=== PATIENT | female | born 1965 | race Hispanic/Latino ===

== ENCOUNTER 2021-07-18 11:08 | Emergency (ER) | payer OTHER ==
[2021-07-18 11:53] LABS: Absolute Lymphocytes (CBC) 1.9 K/uL (0.7-4.9); Basophils % 0.4 % (0-1.3); Hematocrit 33.1 % (36.0-45.0); Lymphocytes % 40.9 % (15.3-44.8); MPV 7.9 fL (7.6-11.3); RBC Red Blood Cell Count 4.03 M/uL (3.86-4.86)
[2021-07-18] MEDS ORDERED: METOCLOPRAMIDE 10 MG/2mL INJ ONE (12:01)
[2021-07-18] MEDS ORDERED: KETOROLAC 30 MG/ML INJ ONE (12:01)
[2021-07-18] MEDS ORDERED: NA CHLORIDE 0.9% 1,000 ML ONE (12:01)
[2021-07-18] MEDS ORDERED: NA CHLORIDE 0.9% 50 ML ONE (12:02)
[2021-07-18 12:05] LABS: Protime INR 1.08
[2021-07-18 12:22] LABS: ALT/SGPT 24 U/L (12-78); AST/SGOT 15 U/L (15-37); Albumin 3.2 g/dL (3.4-5.0); Alkaline Phosphatase 106 U/L (45-117); BUN Blood Urea Nitrogen 10 mg/dL (7-18); Bicarbonate 28 mmol/L (21-32); Bilirubin Direct < 0.1 mg/dL (0-0.2); Bilirubin Total 0.3 mg/dL (0.2-1.0); Glucose Level 155 mg/dL (74-106); Magnesium 1.8 mg/dL (1.8-2.4); NT PRO-BNP 720 pg/mL (<125); Potassium 3.8 mmol/L (3.5-5.1); Protein, Total 7.3 g/dL (6.4-8.2); Sodium Level 144 mmol/L (136-145); Troponin (Emerg Dept Use Only) < 0.02 ng/mL (0.0-0.045)
--- NOTE | 2021-07-18 12:37 | RAD REPORT ---
EXAM DESCRIPTION: CT - Head Brain Wo Cont - 07/18/2021 12:15 pm CLINICAL HISTORY: HEADACHE Hypertension, headache COMPARISON: CTFACIAL BONES W MPR dated 03/30/2015 TECHNIQUE: All CT scans are performed using dose optimization technique as appropriate and may inclu de automated exposure control or mA/KV adjustment according to patient size. FINDINGS: No intracranial hemorrhage, hydrocephalus or extra-axial fluid collection.No areas of brai n edema or evidence of midline shift. The paranasal sinuses and mastoids are clear. The calvarium is intact. IMPRESSION: No acute intracranial abnormality.
[2021-07-18 12:48] LABS: Blood Morphology Comment NOT SEEN (NOT SEEN); Platelet Estimate ADEQ
--- NOTE | 2021-07-18 13:00 | RAD REPORT ---
EXAM DESCRIPTION: RAD - Chest Single View - 07/18/2021 12:42 pm CLINICAL HISTORY: MALAISE Chest pain. COMPARISON: CHEST PA AND LAT 2 VIEW dated 03/26/2010; ABDOMEN ACUTE SERIES dated 01/29/2004 FINDINGS: Portable technique limits examination quality. Mild bilateral interstitial lung opacities are present likely representing a viral infection or bronc hitis. The heart is normal in size. No displaced fractures.
[2021-07-18 13:12] LABS: Urine Blood Negative (Negative); Urine Glucose Negative (Negative); Urine Protein Negative (Negative)
--- NOTE | 2021-07-18 13:36 | EDPHYS ---
Physician Documentation [facility] Name: Linda Shrestha Age: 55 yrs Sex: Female : 1965 Arrival Date: 07/18/2021 Time: 11:10 Bed 7 Private MD: ED Physician Deniz Leslie HPI: 07/18 11:32 This 55 yrs old Female presents to ER via Ambulatory with complaints of Blood ma2 Pressue Issue, Dizziness. 11:32 The patient presents with mild headache. Onset: The symptoms/episode began/occurred ma2 gradually, 1 day(s) ago. Associated signs and symptoms: Pertinent negatives: blurred vision, confusion, focal weakness, head injury, numbness, palpitations, syncope. Severity of symptoms: At their worst the symptoms were moderate in the emergency department the symptoms are unchanged. The patient has experienced similar episodes in the past. Historical: - Allergies: 11:21 No Known Drug Allergies; ll1 - PMHx: 11:21 Hypertension; ll1 - Immunization history:: Client reports having NOT received the Covid vaccine. Flu vaccine status is unknown. - Social history:: Smoking status: Patient denies any tobacco usage or history of. - Family history:: not pertinent. ROS: 11:32 Constitutional: Negative for fever, chills, and weight loss. ma2 11:32 All other systems are negative. Exam: 11:32 Constitutional: This is a well developed, well nourished patient who is awake, alert, ma2 and in no acute distress. Head/Face: Normocephalic, atraumatic. Eyes: Pupils equal round and reactive to light, extra-ocular motions intact. Lids and lashes normal. Conjunctiva and sclera are non-icteric and not injected. Cornea within normal limits. Periorbital areas with no swelling, redness, or edema. ENT: Nares patent. No nasal discharge, no septal abnormalities noted. Tympanic membranes are normal and external auditory canals are clear. Oropharynx with no redness, swelling, or masses, exudates, or evidence of obstruction, uvula midline. Mucous membranes moist. Neck: Trachea midline, no thyromegaly or masses palpated, and no cervical lymphadenopathy. Supple, full range of motion without nuchal rigidity, or vertebral point tenderness. No Meningismus. Chest/axilla: Normal chest wall appearance and motion. Nontender with no deformity. No lesions are appreciated. Cardiovascular: Regular rate and rhythm with a normal S1 and S2. No gallops, murmurs, or rubs. Normal PMI, no JVD. No pulse deficits. Respiratory: Lungs have equal breath sounds bilaterally, clear to auscultation and percussion. No rales, rhonchi or wheezes noted. No increased work of breathing, no retractions or nasal flaring. Abdomen/GI: Soft, non-tender, with normal bowel sounds. No distension or tympany. No guarding or rebound. No evidence of tenderness throughout. Back: No spinal tenderness. No costovertebral tenderness. Full range of motion. MS/ Extremity: Pulses equal, no cyanosis. Neurovascular intact. Full, normal range of motion. Neuro: Awake and alert, GCS 15, oriented to person, place, time, and situation. Cranial nerves II-XII grossly intact. Motor strength 5/5 in all extremities. Sensory grossly intact. Cerebellar exam normal. Normal gait. Vital Signs: 11:21 BP 149 / 91; Pulse 96; Resp 16; Temp 98.3; Pulse Ox 97% on R/A; Weight 65.77 kg; Height ll1 4 ft. 11 in. (149.86 cm); Pain 10/10; 13:15 BP 123 / 60; Pulse 84; Resp 16; Pulse Ox 100% ; sv 11:21 Body Mass Index 29.29 (65.77 kg, 149.86 cm) ll1 MDM: 11:20 Patient medically screened. ma2 11:32 Differential diagnosis: generalized weakness, hyperventilation, hypovolemia, idiopathic ma2 dizziness, near-syncope, vertigo. 13:35 Data reviewed: vital signs, nurses notes. Counseling: I had a detailed discussion with ma2 the patient and/or guardian regarding: the historical points, exam findings, and any diagnostic results supporting the discharge/admit diagnosis, the presence of at least one elevated blood pressure reading (>120/80) during this emergency department visit, the need for outpatient follow up. Response to treatment: the patient's symptoms have markedly improved after treatment. 07/18 11:31 Order name: Basic Metabolic Panel; Complete Time: 12:24 [facility] 07/18 11:31 Order name: CBC with Diff; Complete Time: 13:03 [facility] 07/18 11:31 Order name: LFT's; Complete Time: 12:24 [facility] 07/18 11:31 Order name: Magnesium; Complete Time: 12:24 [facility] 07/18 11:31 Order name: NT PRO-BNP; Complete Time: 12:24 [facility] 07/18 11:31 Order name: PT-INR; Complete Time: 12:24 [facility] 07/18 11:31 Order name: CT Head Brain wo Cont; Complete Time: 13:03 [facility] 07/18 11:31 Order name: Troponin (emerg Dept Use Only); Complete Time: 12:24 [facility] 07/18 11:31 Order name: XRAY Chest (1 view); Complete Time: 13:03 [facility] 07/18 12:47 Order name: Manual Differential; Complete Time: 13:03 [facility] 07/18 12:59 Order name: SARS-COV-2 RT PCR; Complete Time: 13:03 [facility] 07/18 13:12 Order name: Urine Dipstick-Ancillary [facility] 07/18 11:31 Order name: EKG; Complete Time: 11:32 [facility] 07/18 11:31 Order name: Cardiac monitoring; Complete Time: 11:48 [facility] 07/18 11:31 Order name: EKG - Nurse/Tech; Complete Time: 11:48 [facility] 07/18 11:31 Order name: IV Saline Lock; Complete Time: 11:48 [facility] 07/18 11:31 Order name: Labs collected and sent; Complete Time: 11:48 [facility] 07/18 11:31 Order name: O2 Per Protocol; Complete Time: 11:49 [facility] 07/18 11:31 Order name: O2 Sat Monitoring; Complete Time: 11:49 [facility] 07/18 11:31 Order name: Urine Dipstick-Ancillary (obtain specimen); Complete Time: 13:13 ma Administered Medications: 11:48 Drug: NS 0.9% 1000 ml Route: IV; Rate: 1 bolus; Site: right forearm; sv 13:13 Follow up: Response: No adverse reaction; IV Status: Completed infusion; IV Intake: sv 1000ml 11:48 Drug: Reglan (metoCLOPramide) 20 mg Route: IVP; Site: right forearm; sv 12:30 Follow up: Response: No adverse reaction sv 11:48 Drug: Ketorolac 30 mg Route: IVP; Site: right forearm; sv 12:30 Follow up: Response: No adverse reaction sv 14:01 Drug: AZITHromycin 500 mg Route: PO; sv 14:01 Follow up: Response: Medication administered at discharge. sv Disposition Summary: 07/18/21 13:35 Discharge Ordered Location: Home ma2 Condition: Stable ma2 Diagnosis - Episodic tension-type headache ma2 - Acute bronchitis, unspecified ma2 Followup: ma2 - With: Private Physician - When: Tomorrow - Reason: Continuance of care Discharge Instructions: - Discharge Summary Sheet ma2 - Acute Bronchitis, Adult ma2 Forms: - Medication Reconciliation Form ma2 - Thank You Letter ma2 - Antibiotic Education ma2 - Prescription Opioid Use ma2 Prescriptions: - Reglan 10 mg Oral Tablet - take 1 tablet by ORAL route every 6 hours . take 30 minutes before meals and at ma2 bedtime; 100 tablet; Refills: 0, Product Selection Permitted - Zithromax Z-Mikael 250 mg Oral Tablet - take 1 tablet by ORAL route as directed for 5 days Day 1 - take two (2) tablets ma2 one time. Day 2, 3, 4 , 5 take one (1) tablet once daily.; 6 tablet; Refills: 0, Product Selection Permitted Signatures: Dispatcher [employer] Staci Henderson RN Deniz Renteria MD MD ma2 Taras Lawson RN RN ll1 Corrections: (The following items were deleted from the chart) 12:05 11:32 CORONAVIRUS+MRNII.BRZ ordered. EDMS EDMS
--- NOTE | 2021-07-18 13:36 | ER ---
Nurse's Notes [facility] Name: Linda Shrestha Age: 55 yrs Sex: Female : 1965 Arrival Date: 07/18/2021 Time: 11:10 Bed 7 Private MD: Diagnosis: Episodic tension-type headache;Acute bronchitis, unspecified Presentation: 07/18 11:21 Chief complaint: Patient states: BP has been elevated the past 4 days. Awoke today with ll1 bad GUTIÉRREZ. Coronavirus screen: Vaccine status: Patient reports being unvaccinated. Client denies travel out of the [place] in the last 14 days. At this time, the client does not indicate any symptoms associated with coronavirus-19. Ebola Screen: Patient denies travel to an Ebola-affected area in the 21 days before illness onset. Initial Sepsis Screen: Does the patient meet any 2 criteria? HR > 90 bpm. No. Patient's initial sepsis screen is negative. Does the patient have a suspected source of infection? No. Patient's initial sepsis screen is negative. Risk Assessment: Do you want to hurt yourself or someone else? Patient reports no desire to harm self or others. Onset of symptoms was July 14, 2021. 11:21 Method Of Arrival: Ambulatory ll1 11:21 Acuity: CRYSTAL 3 ll1 Historical: - Allergies: 11:21 No Known Drug Allergies; ll1 - PMHx: 11:21 Hypertension; ll1 - Immunization history:: Client reports having NOT received the Covid vaccine. Flu vaccine status is unknown. - Social history:: Smoking status: Patient denies any tobacco usage or history of. - Family history:: not pertinent. Screenin:40 Abuse screen: Denies threats or abuse. Denies injuries from another. Nutritional sv screening: No deficits noted. Tuberculosis screening: No symptoms or risk factors identified. Fall Risk None identified. Assessment: 11:40 General: Appears in no apparent distress. comfortable, well groomed, well developed, sv Behavior is calm, cooperative, appropriate for age. Pain: Complains of pain in face and scalp Pain currently is 10 out of 10 on a pain scale. Neuro: Level of Consciousness is awake, alert, obeys commands, Oriented to person, place, time, situation, Moves all extremities. Full function Gait is steady, Speech is normal, Facial symmetry appears normal, Reports headache. Neuro: Reports dizziness, only when getting up to a standing position. Cardiovascular: Patient's skin is warm and dry. Rhythm is sinus rhythm. Respiratory: Airway is patent Respiratory effort is even, unlabored, Respiratory pattern is regular, symmetrical. Derm: Skin is pink, warm \T\ dry. Musculoskeletal: Range of motion: intact in all extremities. 13:15 Reassessment: Patient appears in no apparent distress at this time. No changes from sv previously documented assessment. Patient and/or family updated on plan of care and expected duration. Pain level reassessed. Patient is alert, oriented x 3, equal unlabored respirations, skin warm/dry/pink. 14:01 Reassessment: Patient appears in no apparent distress at this time. Patient and/or sv family updated on plan of care and expected duration. Pain level reassessed. Patient is alert, oriented x 3, equal unlabored respirations, skin warm/dry/pink. Patient states symptoms have improved. Vital Signs: 11:21 BP 149 / 91; Pulse 96; Resp 16; Temp 98.3; Pulse Ox 97% on R/A; Weight 65.77 kg; Height ll1 4 ft. 11 in. (149.86 cm); Pain 10/10; 13:15 BP 123 / 60; Pulse 84; Resp 16; Pulse Ox 100% ; sv 11:21 Body Mass Index 29.29 (65.77 kg, 149.86 cm) ll1 ED Course: 11:10 Patient arrived in ED. ds1 11:20 Deniz Leslie MD is Attending Physician. ma2 11:21 Arm band placed on Patient placed in an exam room, on a stretcher. ll1 11:23 Triage completed. ll1 11:26 Staci Wagoner RN is Primary Nurse. sv 11:40 Patient has correct armband on for positive identification. Bed in low position. Call sv light in reach. slab inspector on. Pulse ox on. NIBP on. Door closed. Head of bed elevated. 11:40 Inserted saline lock: 20 gauge in right antecubital area, using aseptic technique. sv ,using aseptic technique. done by Selvin HARTMANN Blood collected. 11:44 EKG done, by ED staff, reviewed by Deniz Leslie MD. sv 12:15 CT Head Brain wo Cont In Process Unspecified. EDMS 12:42 XRAY Chest (1 view) In Process Unspecified. EDMS 14:01 No provider procedures requiring assistance completed. IV discontinued, intact, sv bleeding controlled, No redness/swelling at site. Pressure dressing applied. Administered Medications: 11:48 Drug: NS 0.9% 1000 ml Route: IV; Rate: 1 bolus; Site: right forearm; sv 13:13 Follow up: Response: No adverse reaction; IV Status: Completed infusion; IV Intake: sv 1000ml 11:48 Drug: Reglan (metoCLOPramide) 20 mg Route: IVP; Site: right forearm; sv 12:30 Follow up: Response: No adverse reaction sv 11:48 Drug: Ketorolac 30 mg Route: IVP; Site: right forearm; sv 12:30 Follow up: Response: No adverse reaction sv 14:01 Drug: AZITHromycin 500 mg Route: PO; sv 14:01 Follow up: Response: Medication administered at discharge. sv Intake: 13:13 IV: 1000ml; Total: 1000ml. sv Outcome: 13:35 Discharge ordered by MD. pratt 14:02 Discharged to home ambulatory. sv 14:02 Condition: stable 14:02 Discharge instructions given to patient, Instructed on discharge instructions, follow up and referral plans. medication usage, Demonstrated understanding of instructions, follow-up care, medications, Prescriptions given X 2. 14:02 Patient left the ED. sv Signatures: Dispatcher [employer] Staci Henderson, RN RN Anabelle Hicks ds1 Deniz Leslie MD MD ma2 Lewis, Lynsay, RN RN ll1
[2021-07-18] MEDS ORDERED: AZITHROMYCIN 250 MG TAB ONE (14:03)
[2021-07-18 14:23] VITALS: TEMP 98.3
[2021-07-18 14:24] VITALS: BP 123/60; O2SAT 100
== END 2021-07-18 14:02 | disposition home or self-care (01) ==
LOC: ER 11:08
DX: G44.209 Tension-type headache, unspecified, not intractable (principal); J20.9 Acute bronchitis, unspecified; Z20.822 Contact with and (suspected) exposure to COVID-19
CPT/HCPCS: 96361; 93005; 85025; 80048; 36415; 83735; 85610; 80076; 81003; 84484; 83880; 70450; 71045; 96375; 96374; 99285; U0003; J2765; J7030

== ENCOUNTER 2021-07-26 17:49 | Emergency (ER) | payer OTHER ==
--- NOTE | 2021-07-26 18:42 | RAD REPORT ---
EXAM DESCRIPTION: CT - Head Brain Wo Cont - 07/26/2021 6:31 pm CLINICAL HISTORY: DIZZINESS COMPARISON: <Comparisons> TECHNIQUE: All CT scans are performed using dose optimization technique as appropriate and may inclu de automated exposure control or mA/KV adjustment according to patient size. FINDINGS: No intracranial hemorrhage, hydrocephalus or extra-axial fluid collection.No areas of brai n edema or evidence of midline shift. The paranasal sinuses and mastoids are clear. The calvarium is intact. IMPRESSION: No acute intracranial abnormality.
[2021-07-26 19:07] LABS: Absolute Lymphocytes (CBC) 2.5 K/uL (0.7-4.9); Basophils % 0.4 % (0-1.3); Hematocrit 32.5 % (36.0-45.0); Lymphocytes % 41.7 % (15.3-44.8); RBC Red Blood Cell Count 3.98 M/uL (3.86-4.86)
[2021-07-26 19:22] LABS: Protime INR 1.09
--- NOTE | 2021-07-26 19:26 | RAD REPORT ---
EXAM DESCRIPTION: RAD - Chest Single View - 07/26/2021 6:30 pm CLINICAL HISTORY: dizziness COMPARISON: Chest Single View dated 07/18/2021; CHEST PA AND LAT 2 VIEW dated 03/26/2010; ABDOMEN ACUTE SERIES dated 01/29/2004 FINDINGS: Lines: None. Lungs: No evidence of edema or pneumonia. Pleural: No significant pleural effusions or pneumothorax. Cardiac: The heart size is within normal limits. Bones: No acute fractures. Other: IMPRESSION: No acute cardiopulmonary disease.
[2021-07-26] MEDS ORDERED: ONDANSETRON 4 MG/2 ML VIAL ONE (19:35)
[2021-07-26] MEDS ORDERED: LORazepam 2 MG/ML VIAL ONE (19:35)
[2021-07-26] MEDS ORDERED: NA CHLORIDE 0.9% 1,000 ML ONE (19:35)
[2021-07-26 19:36] LABS: ALT/SGPT 27 U/L (12-78); AST/SGOT 15 U/L (15-37); Albumin 3.3 g/dL (3.4-5.0); Alkaline Phosphatase 102 U/L (45-117); BUN Blood Urea Nitrogen 15 mg/dL (7-18); Bicarbonate 28 mmol/L (21-32); Bilirubin Direct < 0.1 mg/dL (0-0.2); Bilirubin Total 0.2 mg/dL (0.2-1.0); Creatine Phosphokinase 46 U/L (26-192); Glucose Level 114 mg/dL (74-106); NT PRO-BNP 266 pg/mL (<125); Potassium 3.5 mmol/L (3.5-5.1); Sodium Level 142 mmol/L (136-145); Troponin (Emerg Dept Use Only) < 0.02 ng/mL (0.0-0.045)
[2021-07-26 20:49] LABS: Urine Blood Negative (Negative); Urine Glucose Negative (Negative); Urine Protein Negative (Negative); Urine Specific Gravity 1.025 (1.005-1.030); Urine pH 6.5 (5.0-7.0)
[2021-07-26 21:58] LABS: Barbiturates NEGATIVE (NEGATIVE); Benzodiazepines NEGATIVE (NEGATIVE); Cocaine NEGATIVE (NEGATIVE); METHAMPHETAM NEGATIVE (NEGATIVE); Methadone NEGATIVE (NEGATIVE); Opiates NEGATIVE (NEGATIVE); Phencyclidine NEGATIVE (NEGATIVE); THC Cannibis NEGATIVE (NEGATIVE)
--- NOTE | 2021-07-26 22:13 | ER ---
Nurse's Notes [facility] Name: Linda Shrestha Age: 55 yrs Sex: Female : 1965 Arrival Date: 07/26/2021 Time: 17:59 Bed 15 Private MD: Diagnosis: Anxiety disorder, unspecified Presentation: 07/26 18:15 Chief complaint: Patient states: Reports episode of anxiety while washing her car. aj2 Reports hot flash prior to feeling anxiety.. Coronavirus screen: Vaccine status: Patient reports being unvaccinated. Ebola Screen: No symptoms or risks identified at this time. Initial Sepsis Screen: Does the patient meet any 2 criteria?. Risk Assessment: Do you want to hurt yourself or someone else?. Onset of symptoms was July 26, 2021. 18:15 Method Of Arrival: EMS: [facility] aj2 18:15 Acuity: CRYSTAL 2 aj2 22:41 Initial Sepsis Screen: Does the patient have a suspected source of infection? No. lh3 Patient's initial sepsis screen is negative. Triage Assessment: 18:18 General: Appears in no apparent distress. comfortable, Behavior is calm, cooperative. aj2 Pain: Denies pain. HIGH CLIMBER: 22:41 LMP N/A - Irregular menses lh3 Historical: - PMHx: 18:18 Hypertension; aj2 - Immunization history:: Adult Immunizations not up to date. - Social history:: Smoking status: unknown. Screenin:49 Abuse screen: Denies threats or abuse. Denies injuries from another. Nutritional aj2 screening: No deficits noted. Tuberculosis screening: No symptoms or risk factors identified. Fall Risk None identified. Assessment: 18:49 Reassessment: Patient appears in no apparent distress at this time. Patient and/or aj2 family updated on plan of care and expected duration. Pain level reassessed. Patient is alert, oriented x 3, equal unlabored respirations, skin warm/dry/pink. Vital Signs: 18:46 BP 126 / 68; Pulse 87; Resp 18; Temp 96.8; Pulse Ox 100% ; aj2 ED Course: 17:59 Patient arrived in ED. em1 18:04 Sami Hurt PA is PHCP. cp 18:09 Sami Shafer MD is Attending Physician. cornelio 18:15 Jn Neves is Primary Nurse. aj2 18:18 Triage completed. aj2 18:18 Arm band placed on right wrist. aj2 18:30 XRAY Chest (1 view) In Process Unspecified. EDMS 18:31 CT Head Brain wo Cont In Process Unspecified. EDMS 18:49 No apparent distress. Resting quietly. aj2 18:49 Patient has correct armband on for positive identification. aj2 18:49 No provider procedures requiring assistance completed. IV is patent, is intact. aj2 18:59 CBC with Diff Sent. aj2 18:59 LFT's Sent. aj2 18:59 Magnesium Sent. aj2 18:59 NT PRO-BNP Sent. aj2 18:59 PT-INR Sent. aj2 18:59 Troponin (emerg Dept Use Only) Sent. aj2 19:00 Basic Metabolic Panel Sent. aj2 22:41 IV discontinued, bleeding controlled, No redness/swelling at site. Pressure dressing lh3 applied. Administered Medications: 19:00 Drug: NS 0.9% 1000 ml Route: IV; Rate: 1 bolus; Site: left antecubital; aj2 19:16 Drug: Ativan (LORazepam) 0.5 mg Route: IVP; Site: left antecubital; aj2 20:05 Follow up: Response: No adverse reaction lh3 19:16 Drug: Zofran (Ondansetron) 4 mg Route: IVP; Site: left antecubital; aj2 20:05 Follow up: Response: No adverse reaction lh3 21:10 Follow up: Response: No adverse reaction 3 Outcome: 22:13 Discharge ordered by . daniella 22:41 Discharged to home ambulatory. 3 22:41 Condition: good 22:41 Discharge instructions given to patient, Instructed on discharge instructions, medication usage, Demonstrated understanding of instructions, Prescriptions given X 1. 22:42 Patient left the ED. 3 Signatures: Dispatcher [employer] EDMS Sami Shafer MD MD cha Martinez, Eric em1 Sami Hurt PA PA cp Hardee, Latisha, RN RN 3 Jn Neves aj2
--- NOTE | 2021-07-26 22:13 | EDPHYS ---
Physician Documentation [facility] Name: Linda Shrestha Age: 55 yrs Sex: Female : 1965 Arrival Date: 07/26/2021 Time: 17:59 Bed 15 Private MD: ED Physician Sami Shafer HPI: 07/26 18:20 This 55 yrs old Female presents to ER via EMS with complaints of Anxiety. cp 18:20 The patient presents with lightheadedness. Onset: The symptoms/episode began/occurred cp today. 18:20 Associated signs and symptoms: Pertinent positives: general weakness, Pertinent cp negatives: abdominal pain, chest pain, focal weakness, near-syncope, numbness, syncope. Patient's baseline: Neuro: alert and fully oriented, Motor: no deficits, Ambulation: walks without assistance, Speech: normal. Patient reports she was outside washing her car at local carwash when she started becoming lightheaded, weak all over. Patient reports history of anxiety. 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 - Social history:: Smoking status: unknown. ROS: 18:25 Constitutional: Negative for body aches, chills, fever, poor PO intake. cp 18:25 Eyes: Negative for injury, pain, redness, and discharge. cp 18:25 ENT: Negative for ear pain, sore throat, difficulty swallowing, difficulty handling secretions. 18:25 Cardiovascular: Negative for chest pain, edema, palpitations. 18:25 Respiratory: Negative for cough, shortness of breath, wheezing. 18:25 Abdomen/GI: Negative for abdominal pain, vomiting, diarrhea, constipation. 18:25 Neuro: Positive for dizziness, weakness all over, Negative for altered mental status, headache, loss of consciousness, numbness, syncope. 18:25 Psych: Positive for anxiety. 18:25 All other systems are negative. Exam: 18:30 Constitutional: The patient appears in no acute distress, alert, awake, cp non-diaphoretic, non-toxic, well developed, well nourished, anxious. 18:30 Head/Face: Normocephalic, atraumatic. cp 18:30 Eyes: Periorbital structures: appear normal, Pupils: equal, round, and reactive to light and accomodation, Extraocular movements: intact throughout, Conjunctiva: normal, no exudate, no injection, Sclera: no appreciated abnormality, Lids and lashes: appear normal, bilaterally. 18:30 ENT: External ear(s): are unremarkable, Ear canal(s): are normal, clear, TM's: dullness, bilaterally, Nose: is normal, Mouth: Lips: moist, Oral mucosa: pink and intact, moist, Posterior pharynx: Airway: no evidence of obstruction, patent. 18:30 Neck: ROM/movement: is normal, is supple, without pain, no range of motions limitations, no nuchal rigidity. 18:30 Chest/axilla: Inspection: normal, Palpation: is normal, no crepitus, no tenderness. 18:30 Cardiovascular: Rate: normal, Rhythm: regular, Heart sounds: murmur, not appreciated, Edema: is not appreciated, JVD: is not appreciated. 18:30 Respiratory: the patient does not display signs of respiratory distress, Respirations: normal, no use of accessory muscles, no retractions, labored breathing, is not present, Breath sounds: are clear throughout, no decreased breath sounds, no stridor, no wheezing. 18:30 Abdomen/GI: Inspection: abdomen appears normal, Palpation: abdomen is soft and non-tender, in all quadrants. 18:30 Back: pain, is absent, ROM is normal. 18:30 Neuro: Orientation: to person, place \T\ time. Mentation: is normal, Cerebellar function: is grossly normal, Motor: moves all fours, strength is normal, Sensation: is normal. 20:37 ECG was reviewed by the Attending Physician. cp Vital Signs: 18:46 BP 126 / 68; Pulse 87; Resp 18; Temp 96.8; Pulse Ox 100% ; aj2 MDM: 18:09 Patient medically screened. cornelio 18:30 Differential diagnosis: hypovolemia, TIA, dehydration, anxiety. cp 22:10 Data reviewed: vital signs, nurses notes, lab test result(s), EKG, radiologic studies, cp CT scan, plain films. 22:10 Test interpretation: by ED physician or midlevel provider: ECG, plain radiologic cp studies. 22:13 Counseling: I had a detailed discussion with the patient and/or guardian regarding: the cp historical points, exam findings, and any diagnostic results supporting the discharge/admit diagnosis, lab results, radiology results, to return to the emergency department if symptoms worsen or persist or if there are any questions or concerns that arise at home. 22:13 Response to treatment: the patient's symptoms have markedly improved after treatment, cp VSS. Patient reports symptoms markedly improved. Will discharge to home for continued monitoring. 07/26 18:11 Order name: Basic Metabolic Panel cp 07/26 18:11 Order name: CBC with Diff; Complete Time: 19:36 cp 07/26 19:36 Interpretation: Normal except: HGB 10.6; HCT 32.5; MCH 26.7; MN% 13.6. cp 07/26 18:11 Order name: LFT's; Complete Time: 19:36 cp 07/26 19:37 Interpretation: Normal except: ALB 3.3; GLOB 3.7; A/G 0.9. cp 07/26 18:11 Order name: Magnesium; Complete Time: 19:36 cp 07/26 18:11 Order name: NT PRO-BNP; Complete Time: 19:36 cp 07/26 18:11 Order name: PT-INR; Complete Time: 19:36 cp 07/26 20:09 Interpretation: Abnormal: PT 12.6. cp 07/26 18:11 Order name: Troponin (emerg Dept Use Only); Complete Time: 19:36 cp 07/26 18:11 Order name: XRAY Chest (1 view); Complete Time: 19:36 cp 07/26 18:11 Order name: CT Head Brain wo Cont; Complete Time: 18:48 cp 07/26 18:11 Order name: CK; Complete Time: 19:36 cp 07/26 18:11 Order name: UDS; Complete Time: 22:05 cp 07/26 18:12 Order name: Basic Metabolic Panel; Complete Time: 19:36 EDMS 07/26 19:37 Interpretation: Normal except: CL 108; GLUC 114; CRE 0.38. cp 07/26 20:49 Order name: Urine Dipstick-Ancillary; Complete Time: 22:05 EDMS 07/26 18:11 Order name: EKG; Complete Time: 18:13 cp 07/26 18:11 Order name: Cardiac monitoring; Complete Time: 19:00 cp 07/26 18:11 Order name: EKG - Nurse/Tech; Complete Time: 20:46 cp 07/26 18:11 Order name: IV Saline Lock; Complete Time: 18:59 cp 07/26 18:11 Order name: Labs collected and sent; Complete Time: 18:59 cp 07/26 18:11 Order name: O2 Per Protocol; Complete Time: 18:59 cp 07/26 18:11 Order name: O2 Sat Monitoring; Complete Time: 18:59 cp 07/26 18:11 Order name: Urine Dipstick-Ancillary (obtain specimen); Complete Time: 21:10 cp 07/26 18:11 Order name: Urine Test (obtain specimen); Complete Time: 21:11 cp EC:37 Rate is 87 beats/min. Rhythm is regular. KS interval is normal. QRS interval is normal. cp QT interval is normal. T waves are Inverted in lead aVR. Interpreted by me. Reviewed by me. Administered Medications: 19:00 Drug: NS 0.9% 1000 ml Route: IV; Rate: 1 bolus; Site: left antecubital; aj2 19:16 Drug: Ativan (LORazepam) 0.5 mg Route: IVP; Site: left antecubital; aj2 20:05 Follow up: Response: No adverse reaction lh3 19:16 Drug: Zofran (Ondansetron) 4 mg Route: IVP; Site: left antecubital; aj2 20:05 Follow up: Response: No adverse reaction lh3 21:10 Follow up: Response: No adverse reaction lh3 Disposition: 07/27 06:41 Co-signature as Attending Physician, Sami Shafer MD I agree with the assessment and cornelio plan of care. Disposition Summary: 07/26/21 22:13 Discharge Ordered Location: Home cp Problem: an acute exacerbation cp Symptoms: have improved cp Condition: Stable cp Diagnosis - Anxiety disorder, unspecified cp Followup: cp - With: Private Physician - When: 1 - 2 days - Reason: Recheck today's complaints Discharge Instructions: - Discharge Summary Sheet cp - Generalized Anxiety Disorder, Adult cp - Form - Return To Work lh3 Forms: - Medication Reconciliation Form cp - Thank You Letter cp - Antibiotic Education cp - Prescription Opioid Use cp Prescriptions: - Vistaril 50 mg Oral capsule - take 1 capsule by ORAL route 4 times per day; 20 capsule; Refills: 0, Product cp Selection Permitted Signatures: Dispatcher [employer] Sami Singh MD MD cha Page, Corey, PA PA cp Hardee, Latisha, RN RN 3 Jn [facility]
[2021-07-26 22:51] VITALS: BP 126/68; TEMP 96.8; O2SAT 100
== END 2021-07-26 22:42 | disposition home or self-care (01) ==
LOC: ER 17:49
DX: F41.9 Anxiety disorder, unspecified (principal)
CPT/HCPCS: 93005; 85025; 80048; 36415; 83735; 82550; 85610; 80076; 81003; 84484; 83880; 80307; 70450; 71045; 96375; 96374; 99284; J7030; J2405

== ENCOUNTER 2021-09-30 19:54 | Emergency (ER) | payer OTHER ==
--- OUTSIDE RECORDS SUMMARY | 2021-09-30 19:57 | XMS REPORT | Continuity of Care Document ---
:1965 Author Organization [facility] t Address [facility] [place] [address] Care Team Providers Name Role Phone Pcp, Patient Does Not Have A Primary Care Physician [id number] Wanda HARTMANN, L Attending Clinician Unavailable REYNA K.H. Attending Clinician Unavailable Reyna RAHMAN, K.H. Attending Clinician UNKNOWN Attending Clinician Unavailable Payers Payer Name Policy Type Policy Number Effective Date Expiration Date S ource Problems Condition Condition Condition Status Onset Resolution Last Treating Co mments Source Name Details Category Date Date Treatment Clinician Date No known No known Disease Unive rs active active ity of problems problems [facility] Allergies, Adverse Reactions, Alerts Allergy Allergy Status Severity Reaction(s) Onset Inactive Treating Comm ents Source Name Type Date Date Clinician NO KNOWN Drug Active [facility] ALLERGIE Class ity of S [facility] Social History Social Habit Start Date Stop Date Quantity Comments Source Exposure to Not sure [facility] SARS-CoV-2 (event) Medica [facility] Branch Tobacco use and 2021-07-17 2021-07-17 Never used [facility] exposure 00:00:00 00:00:00 [facility] Sex Ass[birth year] At [birth year] [facility] 00:00:00 00:00:00 [facility] Smoking Status Start Date Stop Date Source Never smoker [facility] Medications Ordered Filled Start Stop Current Ordering Indication Dosage Frequency Signature Comments Components Source Medication Medication Date Date Medication? Clinician (SIG) Name Name lisinopriL Yes 10mg Take 10 mg U nivers 10 mg 9-23 by mouth ity of tablet 00:00: daily. [facility] lisinopriL 2020-0 Yes 10mg Take 10 mg U nivers 10 mg 9-23 by mouth ity of tablet 00:00: daily. [place] [facility] lisinopriL 2020-0 Yes 10mg Take 10 mg U nivers 10 mg 9-23 by mouth ity of tablet 00:00: daily. [facility] atomoxetine 2020-0 Yes 40mg Take 40 mg Univers 40 mg 7-06 by mouth ity of capsule 00:00: daily. [facility] escitalopra 2020-0 Yes 10mg Take 10 mg Univers m oxalate 7-06 by mouth 2 ity of 10 mg 00:00: (two) [place] tablet 00 times Medical daily. Branch atomoxetine 2020-0 Yes 40mg Take 40 mg Univers 40 mg 7-06 by mouth ity of capsule 00:00: daily. [place] [facility] escitalopra 2020-0 Yes 10mg Take 10 mg Univers m oxalate 7-06 by mouth 2 ity of 10 mg 00:00: (two) [place] tablet 00 times Medical daily. Branch atomoxetine 2020-0 Yes 40mg Take 40 mg Univers 40 mg 7-06 by mouth ity of capsule 00:00: daily. [place] [facility] escitalopra 2020-0 Yes 10mg Take 10 mg Univers m oxalate 7-06 by mouth 2 ity of 10 mg 00:00: (two) [place] tablet 00 times Medical daily. Branch albuterol 2020- No [id number] 2{puff} Inhale 2 Univers 90 1-03 09-24 Puffs ity of mcg/actuati 00:00: 00:00 every 6 [place] inhaler 00 :00 (six) Medical hours as Branch needed for Wheezing or Shortness of Breath. albuterol 2020- No [id number] 2{puff} Inhale 2 Univers 90 1-03 09-24 Puffs ity of mcg/actuati 00:00: 00:00 [place] 6 [place] inhaler 00 :00 (six) Medical hours as Branch needed for Wheezing or Shortness of Breath. Vital Signs Vital Name Observation Time Observation Value Comments Source Systolic blood 2021-07-17 20:00:00 134 mm[Hg] [facility] Diastolic blood 2021-07-17 20:00:00 73 mm[facility]Hg[facility] Heart rate 2021-07-17 19:58:00 90 /min [facility] Body weight 2021-07-17 19:58:00 67.132 kg [facility] BMI 2021-07-17 19:58:00 29.89 kg/m2 [facility] Oxygen saturation 2021-07-17 19:58:00 97 /min [facility] in Arterial blood [facility] anch by Pulse oximetry Procedures This patient has no known procedures. Encounters Start End Encounter Admission Attending Care Care Encounter Source Date/Time Date/Time Type Type Clinicians Facility Department ID 2021-09-04 2021-09-04 Telephone Wanda GOLDMAN [id number] Univers 00:00:00 00:00:00 , Hedy CLARK [id number] [id number] [id number] [facility] [address] 2021-08-13 2021-08-13 [facility] [id number] Univers 08:30:00 08:30:00 SENDIL [id number] [facility] 2021-08-13 2021-08-13 Outpatient [facility] [id number] Univers 00:00:00 00:00:00 SENDIL [facility] 2021-08-11 2021-08-11 Outpatient R [facility] [id number] Univers 14:15:00 14:15:00 [id number]-07-17 2021-07-17 [facility] [id number] Univers 14:49:01 15:18:26 Visit Priya Arambula [id number] [id number] [id number] [place] [id number] [facility] 2021-07-17 2021-07-17 Outpatient [facility] [id number] Univers 15:00:00 15:00:00 SENDIL [id number] [facility] 2021-07-17 2021-07-17 Outpatient R REYNA [facility] [id number] [facility] 15:00:00 15:00:00 SENDIL [facility] 2020-10-26 2020-10-26 Outpatient R ANGELINE [facility] [id number] Univers 12:15:00 12:15:00 ATTENDING [facility] Results This patient has no known results.
[2021-09-30 20:29] LABS: Urine Blood Negative (Negative); Urine Glucose Negative (Negative); Urine Protein Negative (Negative); Urine Specific Gravity 1.025 (1.005-1.030); Urine pH 6.5 (5.0-7.0)
[2021-09-30 21:06] LABS: Urine Specific Gravity/Preg 1.025 (1.005-1.030)
--- NOTE | 2021-09-30 23:23 | ER ---
Nurse's Notes [facility] Name: Linda Shrestha Age: 55 yrs Sex: Female : 1965 Arrival Date: 09/30/2021 Time: 19:57 Bed Waiting Private MD: Diagnosis: Presentation: 09/30 20:01 Chief complaint: Patient states: left flank and left side x 1 day. Coronavirus screen: da3 Vaccine status: Patient reports being unvaccinated. Ebola Screen: No symptoms or risks identified at this time. Initial Sepsis Screen: Does the patient meet any 2 criteria? No. Patient's initial sepsis screen is negative. Risk Assessment: Do you want to hurt yourself or someone else? Patient reports no desire to harm self or others. Onset of symptoms was September 30, 2021. 20:01 Method Of Arrival: Ambulatory da3 20:01 Acuity: CRYSTAL 3 da3 Triage Assessment: 20:05 General: Appears uncomfortable, Behavior is calm, cooperative, anxious. 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 - Social history:: Smoking status: Patient/guardian denies using tobacco. Vital Signs: 20:01 BP 155 / 99; Pulse 104; Resp 22; Temp 98.4; Pulse Ox 98% ; Weight 60.33 kg; Height 4 da3 ft. 11 in. (149.86 cm); 20:01 Body Mass Index 26.86 (60.33 kg, 149.86 cm) da3 ED Course: 19:57 Patient arrived in ED. da3 20:04 Triage completed. da3 23:17 Orlando Durand MD is Attending Physician. rn 23:22 Patient's name was called from ER lobby. No response. Unable to locate patient. Will bb disposition as left without being seen by a provider. Administered Medications: No medications were administered Outcome: 23:22 Patient left the ED. bb Signatures: Kathi Malhotra RN RN bb Orlando Durand MD MD rn Allan, David, RN RN da3 Corrections: (The following items were deleted from the chart) 20:05 20:04 PMHx: Hypertension; da3 da3
--- NOTE | 2021-09-30 23:23 | EDPHYS ---
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 - Social history:: Smoking status: Patient/guardian denies using tobacco. Vital Signs: 20:01 BP 155 / 99; Pulse 104; Resp 22; Temp 98.4; Pulse Ox 98% ; Weight 60.33 kg; Height 4 da3 ft. 11 in. (149.86 cm); 20:01 Body Mass Index 26.86 (60.33 kg, 149.86 cm) da3 MDM: 23:17 Patient medically screened. rn 23:20 ED course: Pt left prior to evaluation, after triage. rn 09/30 20:29 Order name: Urine Dipstick-Ancillary; Complete Time: 23:17 EDMS 09/30 20:45 Order name: Urine --Ancillary (enter results) cs9 09/30 20:22 Order name: Urine Dipstick-Ancillary (obtain specimen) bb 09/30 20:46 Order name: Urine --Ancillary; Complete Time: 23:17 EDMS Administered Medications: No medications were administered Disposition Summary: 09/30/21 23:22 Eloped Disposition: before being seen by provider bb Reason: wait time bb Signatures: Dispatcher [employer] EDMS Kathi Malhotra RN RN bb Orlando Durand MD MD rn Allan, David, RN RN da3 Corrections: (The following items were deleted from the chart) 20:05 20:04 PMHx: Hypertension; da3 da3
[2021-09-30 23:39] VITALS: BP 155/99; TEMP 98.4; O2SAT 98
== END 2021-09-30 23:22 | disposition left against medical advice (07) ==
LOC: ER 19:54
DX: Z53.21 Procedure and treatment not carried out due to patient leaving prior to being seen by health care provider (principal)
CPT/HCPCS: 81003; 81025; 99281

== ENCOUNTER 2023-05-29 18:45 | Emergency (ER) | payer OTHER ==
--- OUTSIDE RECORDS SUMMARY | 2023-05-29 18:57 | XMS REPORT | Continuity of Care Document ---
:1965 Author Organization [facility] t Address [address] [place] [address] Care Team Providers Name Role Phone Manas Hawkins [facility] Primary Care P hysician PRIYA ORELLANA Attending Clinician Unavailable Priya Orellana MD Attending Clinician Doctor Unassigned, [place] Attending Clinician Unavailable Saba Mora DO Attending Clinician SABA MORA Attending Clinician Unavailable SABA MORA Attending Clinician Unavailable 2, [facility] Attending Clinician Unavailable AR DIEGO Attending Clinician Unavailable AR DIEGO Attending Clinician Unavailable [facility], [facility] Attending Clinician Unavailable Ar Diego MD Attending Clinician RADHA SIEGEL Attending Clinician Unavailable Radha Siegel MD Attending Clinician Testing, [facility] Pulmonary Function Attending Clinician Unavaila ble Only, Adc Test Attending Clinician Unavailable Marita Birmingham MD Attending Clinician MARITA BIRMINGHAM Attending Clinician Unavailable NILTON GRACIA Attending Clinician Unavailable Nilton Gracia MD Attending Clinician KUMAR VALENCIA Attending Clinician Unavailable Kumar Valencia MD Attending Clinician Juan Francisco CNP, Kasey Quiroga Attending Clinician [phone] KASEY JARQUIN Attending Clinician Unavailable CHANDA FINK Attending Clinician Unavailable Danae ENGLISH LECTURER, Chanda Rona Attending Clinician RIC VILLATORO Attending Clinician Unavailable CHANCE BENITEZ Attending Clinician Unavailable Tariq ENGLISH LECTURER, Janellye R Attending Clinician Lab, [facility] Attending Clinician Unavailable Addison ENGLISH LECTURER, Roshunda R Attending Clinician GUY ADDISON R Attending Clinician Unavailable CHAD PEREZ Attending Clinician Unavailable Chad Perez DO Attending Clinician Danna LINING MAKER HAND, Kenisha Alex Attending Clinician Unavailable Wanda RN, Hedy Houston Attending Clinician Unavailable Omaghomi ENGLISH LECTURER, Omayemi Attending Clinician Unknown, Attending Attending Clinician Unavailable UNKNOWN, ATTENDING Attending Clinician Unavailable RADHA SIEGEL Admitting Clinician Unavailable Robbin RAHMAN, Radha Leger Admitting Clinician KUMAR VALENCIA Admitting Clinician Unavailable NILTON GRACIA Admitting Clinician Unavailable CHANCE BENITEZ Admitting Clinician Unavailable CHAD PEREZ Admitting Clinician Unavailable Payers Payer Name Policy Type Policy Number Effective Date Expiration Date [facility] [id number] 2020 CHOICE [place] STAR 00:00:00 Problems Condition Condition Condition Status Onset Resolution Last Treating Co mments Source Name Details Category Date Date Treatment Clinician Date Pulmonary Pulmonary Disease Active 2021-10 Overview: Univers hypertensi hypertensi 1-30 Formattin ity of on on 00:00: g of this [place] 00 note Medical might be Branch different from the original. Added automatic ally from request for surgery [id number] BAXTER BAXTER Disease Active 2021-10 Overview: Univer s (dyspnea (dyspnea 1-30 Formattin ity of on on 00:00: g of this [place] exertion) exertion) 00 note Medi juan c might be Branch different from the original. Added automatic ally from request for surgery [id number] Diastolic Diastolic Disease Active 2021-10 Overview: Univers dysfunctio dysfunctio 1-30 Formattin ity of n n 00:00: g of this [place] 00 note Medical might be Branch different from the original. 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 2-28 ity of 00:00: [place] 00 Medical Branch Other Other Disease Active Univers general general 1-13 ity of counseling [place] and advice and advice 00 Dc dical for for Branch contracept contracept chrystal chrystal management management Essential Essential Disease Active Uni vers hypertensi hypertensi 1-13 it y of on, benign [place], benign 00:[place] 00 [place] Over Over Disease Active Univers weight weight 1-13 ity of 00:00: [address] Allergies, Adverse Reactions, Alerts Allergy Allergy Status Severity Reaction(s) Onset Inactive Treating Comm ents Source Name Type Date Date Clinician NO KNOWN Drug Active Univers ALLERGIE Class ity of S [facility] Social History Social Habit Start Date Stop Date Quantity Comments Source Gender identity Universit y of [facility] to 2023-02-18 2023-02-28 Not sure [facility] SARS-CoV-2 (event) 00:00:00 13:08:00 [facility] Alcohol intake 2022-11-16 2022-11-16 Ex-drinker [facility] 00:00:00 00:00:00 (finding) [facility] History of Social 2022-08-13 2022-08-13 Univers ity of function 00:00:00 00:00:00 [facility] Tobacco use and 2022-07-22 2022-07-22 Smokeless Universit y of exposure 00:00:00 00:00:00 tobacco [facility] Sex Assigned At [birth year] Universit y of 00:00:00 00:00:00 [facility] Smoking Status Start Date Stop Date Source Never smoked tobacco [facility] [place] [facility] Medications Ordered Filled Start Stop Current Ordering Indication Dosage Frequency Signature Comments Components Source Medication Medication Date Date Medication? Clinician (SIG) Name Name SPIRONOLACT 2023-0 Yes TAKE HALF U nivers ONE 25 mg 8-03 TABLET BY ity o f tablet 00:00: MOUTH [place] [id number] EVERY Medical MORNING Branch SPIRONOLACT 2023-0 Yes TAKE HALF U nivers ONE 25 mg 8-03 TABLET BY ity o f tablet 00:00: MOUTH [place] EVERY Medical MORNING Branch spironolact 2023-0 Yes 12.5mg Take 0.5 Univers one 25 mg 4-12 tablets by ity of tablet 00:00: mouth in [place] the Medical morning. Branch spironolact 2023-0 Yes 12.5mg Take 0.5 Univers one 25 mg 4-12 tablets by ity of tablet 00:00: mouth in [place] the Medical morning. Branch spironolact 2023-0 Yes 12.5mg Take 0.5 Univers one 25 mg 4-12 tablets by ity of tablet 00:00: mouth in [place] the Medical morning. Branch spironolact 2023-0 Yes 12.5mg Take 0.5 Univers one 25 mg 4-12 tablets by ity of tablet 00:00: mouth in [place] the Medical morning. Branch spironolact 2023-0 Yes 12.5mg Take 0.5 Univers one 25 mg 4-12 tablets by ity of tablet 00:00: mouth in [place] the Medical morning. Branch spironolact 2023-0 Yes 12.5mg Take 0.5 Univers one 25 mg 4-12 tablets by ity of tablet 00:00: mouth in [place] the Medical morning. Branch spironolact 2023-0 Yes 12.5mg Take 0.5 Univers one 25 mg 4-12 tablets by ity of tablet 00:00: mouth in [place] the Medical morning. Branch spironolact 2023-0 Yes 12.5mg Take 0.5 Univers one 25 mg 4-12 tablets by ity of tablet 00:00: mouth in [place] the Medical morning. Branch spironolact 2023-0 Yes 12.5mg Take 0.5 Univers one 25 mg 4-12 tablets by ity of tablet 00:00: mouth in [place] 00 the Medical morning. Branch spironolact 2023-0 Yes 12.5mg Take 0.5 Univers one 25 mg 4-12 tablets by ity of tablet 00:00: mouth in [place] 00 the Medical morning. Branch spironolact 2022-0 Yes 12.5mg Take 0.5 Univers one 25 mg 4-12 tablets by ity of tablet 00:00: mouth in [place] 00 the Medical morning. Branch spironolact 2022-0 2022- No 12.5mg Take 0.5 Univers one 25 mg 4-12 08-03 tablets by ity of tablet 00:00: 00:00 mouth in [place] 00 :00 the Medical morning. Branch spironolact 2022-0 2022- No 12.5mg Take 0.5 Univers one 25 mg 4-12 08-03 tablets by ity of tablet 00:00: 00:00 mouth in [place] 00 :00 the Medical morning. Branch spironolact 2022-0 2022- No [id number] 12.5mg Take 0.5 Univers one -12 23- tablets by ity of (ALDACTONE) 00:00: 05:59 mouth in [place] 25 mg 00 :00 the Medical tablet morning Branch for 30 days. spironolact 2022-0 2022- No [id number] 12.5mg Take 0.5 Univers one -12 23- tablets by ity of (ALDACTONE) 00:00: 05:59 mouth in [place] 25 mg 00 :00 the Medical tablet morning Branch for 30 days. spironolact 2022-0 2022- No [id number] 12.5mg Take 0.5 Univers one 10-26- tablets by ity of (ALDACTONE) 00:00: 05:59 mouth in [place] 25 mg 00 :00 the Medical tablet morning Branch for 30 days. spironolact 2022-0 2022- No [id number] 12.5mg Take 0.5 Univers one - 02-03 tablets by ity of (ALDACTONE) 00:00: 05:59 mouth in [place] 25 mg 00 :00 the Medical tablet morning Branch for 30 days. spironolact 2022-0 2022- No [id number] 12.5mg Take 0.5 Univers one - 02-03 tablets by ity of (ALDACTONE) 00:00: 05:59 mouth in [place] 25 mg 00 :00 the Medical tablet morning Branch for 30 days. spironolact 0 2022- No [id number] 12.5mg Take 0.5 Univers one 10-26 tablets by ity of (ALDACTONE) 00:00: 05:59 mouth in [place] 25 mg 00 :00 the Medical tablet morning Branch for 30 days. spironolact 2022-0 2022- No [id number] 12.5mg Take 0.5 Univers one 10-26 tablets by ity of (ALDACTONE) 00:00: 05:59 mouth in [place] 25 mg 00 :00 the Medical tablet morning Branch for 30 days. spironolact 2022-0 2022- No [id number] 12.5mg Take 0.5 Univers one 10-26 tablets by ity of (ALDACTONE) 00:00: 05:59 mouth in [place] 25 mg 00 :00 the Medical tablet morning Branch for 30 days. spironolact 2022-0 2022- No [id number] 12.5mg Take 0.5 Univers one 10-26 tablets by ity of (ALDACTONE) 00:00: 05:59 mouth in [place] 25 mg 00 :00 the Medical tablet morning Branch for 30 days. spironolact 2022-0 2022- No [id number] 12.5mg Take 0.5 Univers one 10-26 tablets by ity of (ALDACTONE) 00:00: 05:59 mouth in [place] 25 mg 00 :00 the Medical tablet morning Branch for 30 days. TAKE 1 2021-10 No TABLET 2-15 DAILY. 00:00: 00 IBUPROFEN 2021-1 No 600MG 2-15 00:00: 00 Dose 2021-10 No Unknown 2-15 00:00: 00 CYCLOBENZAP 2021-10 No R 5MG 2-15 00:00: 00 Dose 2021- No Unknown 2-15 00:00: 00 Dose 2021-10 No Unknown 2-15 00:00: 00 Dose 2021- No Unknown 2-15 00:00: 00 Dose 2021-10 No Unknown 2-15 00:00: 00 Dose 2021-10 No Unknown 2-15 00:00: 00 CYCLOBENZAP 2021-10 No R 5MG 2-15 00:00: 00 Dose 2021-10 No Unknown 2-15 00:00: 00 Dose 2021-10 No Unknown 2-15 00:00: 00 APPLY 2021-10 No SPARINGLY 2-14 TO AFFECTED 00:00: AREA(S) 00 TWICE DAILY INSTILL 1 2021-10 No DROP IN 2-14 LEFT EYE 4 00:00: TIMES A DAY 00 Dose 2021-10 No Unknown 2-14 00:00: 00 Dose 2021-10 No Unknown 2-14 00:00: 00 ESCITALOPRA 2021-10 No M 20MG 2-14 00:00: 00 Dose 2021-10 No Unknown 2-14 00:00: 00 Dose 2021-10 No Unknown 2-14 00:00: 00 ESCITALOPRA 2021-10 No M 10MG 2-14 00:00: 00 Dose 2021-10 No Unknown 2-14 00:00: 00 Dose 2021-10 No Unknown 2-14 00:00: 00 Dose 2021-10 No Unknown 2-14 00:00: 00 Dose 2021-10 No Unknown 2-14 00:00: 00 ATOMOXETINE 2021-10 No CAP 40MG 2-14 00:00: 00 BPM-PSE-DM 2021-10 No SYP 2-30-10 2-14 00:00: 00 AZITHROMYCI 2021-10 No N 250MG 2-14 00:00: 00 APPLY 2021-10 No SPARINGLY 2-14 TO AFFECTED 00:00: AREA(S) 00 TWICE DAILY TAKE 1 2021-10 No TABLET 2-14 DAILY. 00:00: 00 INSTILL 1 2021-10 No DROP IN 2-14 LEFT EYE 4 00:00: TIMES A DAY 00 CIPROFLOXAC 2021-10 No N 500MG 2-14 00:00: 00 ESCITALOPRA 2021-10 No M 20MG 2-14 00:00: 00 METOCLOPRAM 2021-10 No 10MG 2-14 00:00: 00 HYDROCO/APA 2021-10 No P 10-325MG 2-14 00:00: 00 ESCITALOPRA 2021-10 No M 10MG 2-14 00:00: 00 ONDANSETRON 2021-10 No 4MG ODT 2-14 00:00: 00 DICYCLOMINE 2021-10 No CAP 10MG 2-14 00:00: 00 Dose 2021-10 No Unknown 2-14 00:00: 00 Dose 2021-10 No Unknown 2-14 00:00: 00 Dose 2021-10 No Unknown 2-14 00:00: 00 Dose 2021-10 No Unknown 2-14 00:00: 00 Dose 2021-10 No Unknown 2-14 00:00: 00 iopamidol 2021-10- No ONCE INTRA U nivers (ISOVUE 12-05 PROCEDURE, ity o f 370-500 mL) 14:24: 14:27 [place] injection 06 :30 on [facility] 10/04/22 Branch at 0824, Until [facility] 10/04/22 at 0827, Routine, CV Intraproce dure aspirin 2021-10- No [id number] 325mg 325 mg, Un laure tablet 325 12-05 Oral, ity of mg 14:15: 13:25 ONCE, 1 [place] 00 :00 dose, On [facility] 10/04/22 at 0815, STAT aspirin 2021-10- No [id number] 325mg 325 mg, Un laure tablet 325 12-05 Oral, ity of mg 14:15: 13:25 ONCE, 1 [place] 00 :00 dose, On [facility] 10/04/22 at 0815, STAT heparin 2021-10- No ONCE INTRA Uni vers 1,000 12-05 PROCEDURE, ity of unit/mL 14:01: 14:27 Starting [place] injection 20 :30 on [facility] 10/04/22 Branch at 0801, Until [facility] 10/04/22 at 0827, Routine, CV Intraproce dure verapamiL 2021-10- No ONCE INTRA U nivers (ISOPTIN) 12-05 PROCEDURE, ity of injection 14:01: 14:27 Starting [place] 10 :30 on [facility] 10/04/22 Branch at 0801, Until [facility] 10/04/22 at 0827, Routine, CV Intraproce dure nitroglycer 2021-10- No ONCE INTRA Univers in (TRIDIL) 12-05 PROCEDURE, i ty of 2 mg in 10 14:01: 14:27 [place] D5W for 00 :30 on [facility] Cardiac 10/04/22 Branch Cath at 0801, Until [facility] 10/04/22 at 0827, Routine, CV Intraproce dure lidocaine 2021-10- No ONCE INTRA U nivers 1% (PF) 12-05 PROCEDURE, ity o f (XYLOCAINE) 13:52: 14:27 Starting [place] injection 25 :30 on [facility] 10/04/22 Branch at 0752, Until [facility] 10/04/22 at 0827, Routine, CV Intraproce dure FENTanyl PF 2021-10- No ONCE INTRA Univers (SUBLIMAZE 12-05 PROCEDURE, it y of (PF)) 13:45: 14:27 Starting [place] injection 46 :30 on [facility] 10/04/22 Branch at 0745, Until [facility] 10/04/22 at 0827, Routine, CV Intraproce dure midazolam 2021-10- No ONCE INTRA U nivers (VERSED) 12-05 PROCEDURE, ity of injection 13:45: 14:27 Starting [place] 37 :30 on [facility] 10/04/22 Branch at 0745, Until [facility] 10/04/22 at 0827, Routine, CV Intraproce dure Dose 2021-0 No Unknown 9-12 00:00: 00 Dose 2021-0 No Unknown 9-12 00:00: 00 Dose 2021-0 No Unknown 8-09 00:00: 00 Dose 2021-0 No Unknown 8-09 00:00: 00 Dose 2-0 No Unknown 7-14 00:00: 00 Dose 2-0 No Unknown 7-14 00:00: 00 Dose 2-0 No Unknown 7-14 00:00: 00 Dose 2-0 No Unknown 7-14 00:00: 00 Dose 2-0 No Unknown 7-14 00:00: 00 Dose 2-0 No Unknown 7-14 00:00: 00 Dose 2-0 No Unknown 7-14 00:00: 00 Dose 2-0 No Unknown 7-14 00:00: 00 Lexapro 20 2021-0 No 1mg mg tablet 7-11 00:00: 00 mirtazapine 2021-0 No 1mg 15 mg 7-11 tablet 00:00: 00 Dose 2-0 No Unknown 7-11 00:00: 00 Lexapro 20 2021-0 No 1mg mg tablet 05-03 00:00: 00 mirtazapine 2021-0 No 1mg 15 mg 05-03 tablet 00:00: 00 Dose 2021-0 No Unknown 7 00:00: 00 Dose 2021-0 No Unknown 7 00:00: 00 Dose 2021-0 No Unknown 7- 00:00: 00 Dose 2021-0 No Unknown 7- 00:00: 00 Dose 2021-0 No Unknown 7- 00:00: 00 Dose 2021-0 No Unknown 7- 00:00: 00 Dose 2021-0 No Unknown -11 00:00: 00 regadenoson 2021-0 2021- No [id number] .4mg 0.4 mg, IV Univers (LEXISCAN) 04-20 Push, ity of injection 15:15: 15:01 ONCE, 1 [place] 0.4 mg 00 :00 dose, On [facility] 04/20/22 at 1015, Routine
hull line crew member approving Restricted medication : KIMMY HECK tc 2021- No [id number] 42.9mCi 42.9 Unive rs 99m-tetrofo 04-20 millicurie i ty of [facility] 15:15: 15:01 , [place] ([facility]) 00 :00 Intravenou Medi juan c injection s, ONCE, 1 Bran ch 42.9 dose, On [facility] 04/20/22 at 1015, Routine tc 2021- No [id number] 15.2mCi 15.2 Univ ers 99m-tetrofo 04-20 millicurie i ty of [facility] 14:15: 14:02 , [place] ([facility]) 00 :00 Intravenou Medi juan c injection s, ONCE, 1 Bran ch 15.2 dose, On [facility] 04/20/22 at 0915, Routine Lexapro 20 2021-0 No 1mg mg tablet 04-09 00:00: 00 mirtazapine 2-0 No 1mg 15 mg -17 tablet 00:00: 00 Lexapro 20 2021-0 No 1mg mg tablet 6-17 00:00: 00 mirtazapine 2022-0 No 1mg 15 mg 6-17 tablet 00:00: 00 Lexapro 20 2022-0 No 1mg mg tablet 6-17 00:00: 00 mirtazapine 2022-0 No 1mg 15 mg 6-17 tablet 00:00: 00 Lexapro 20 2022-0 No 1mg mg tablet 6-17 00:00: 00 mirtazapine 2022-0 No 1mg 15 mg 6-17 tablet 00:00: 00 Lexapro 20 2022-0 No 1mg mg tablet 5- 00:00: 00 mirtazapine 2022-0 No 1mg 15 mg 5-03 tablet 00:00: 00 Lexapro 20 2022-0 No 1mg mg tablet 5- 00:00: 00 mirtazapine 2022-0 No 1mg 15 mg 5-03 tablet 00:00: 00 Lexapro 20 2022-0 No 1mg mg tablet 5- 00:00: 00 mirtazapine 2022-0 No 1mg 15 mg 5-03 tablet 00:00: 00 Lexapro 20 2022-0 No 1mg mg tablet 02-23 00:00: 00 mirtazapine 2022-0 No 1mg 15 mg 5-03 tablet 00:00: 00 morpHINE 2021-0 2021- No 4mg 4 mg, Slow Un laure injection 4 02-10-20 IV Push, ity of mg 08:15: 07:05 ONCE, 1 [place] 00 :00 dose, On Medical Wed Branch 02/10/22 at 0315, STAT morpHINE 0 2021- No 4mg 4 mg, Slow Un laure injection 4 02-10-20 IV Push, ity of mg 08:00: 07:05 ONCE, 1 [place] 00 :00 dose, On Medical Wed Branch 02/10/22 at 0300, STAT ketorolac 2021-0 2021- No 30mg 30 mg, Unive rs (TORADOL) 02-10 04-20 Slow IV ity of injection 07:00: 06:04 Push, [place] 30 mg 00 :00 ONCE, 1 Medical dose, On Branch 02/10/22 at 0200, Routine
hull line crew member approving Restricted medication : LYDIA MCGARRY NaCl 0.9% 2022-0 Yes 1000mL at 999 Univ ers (NS) IV 4-20 mL/hr, ity of infusion 05:30: Intravenou [place]w [place] 1,000 mL 00 s, Medical CONTINUOUS Branch , Starting on Tue02/10/22 at 0030, Until Discontinu ed, Routine ondansetron 2021- No 4mg 4 mg, Slow Univers (ZOFRAN 4-20 04-20 IV Push, ity of (PF)) 05:30: 05:11 ONCE, 1 [place] injection 4 00 :00 dose, On Medi juan c mg Tue Branch 02/10/22 at 0030, JEAN CLAUDE morpHINE 0 2021- No 4mg 4 mg, Slow Un laure injection 4 4-20 04-20 IV Push, ity of mg 05:30: 05:11 ONCE, 1 [place] 00 :00 dose, On Medical Tue Branch 02/10/22 at 0030, STAT HYDROcodone 2021-0 Yes [id number] 1{tbl} Take 1 Un luare -acetaminop 4-20 tablet by ity of hen (NORCO) 00:00: mouth [place] 10-325 mg 00 every 6 Medical tablet (six) Branch hours as needed for Pain (scale 7-10). Indication s: acute pain HYDROcodone 2021-0 Yes [id number] 1{tbl} Take 1 Un laure -acetaminop 4-20 tablet by ity of hen (NORCO) 00:00: mouth [place] 10-325 mg 00 every 6 Medical tablet (six) Branch hours as needed for Pain (scale 7-10). Indication s: acute pain HYDROcodone 2021-0 Yes 4647 1{tbl} Take 1 Un laure -acetaminop 4-20 tablet by ity of hen (NORCO) 00:00: mouth [place] 10-325 mg 00 every 6 Medical tablet (six) Branch hours as needed for Pain (scale 7-10). Indication s: acute pain HYDROcodone 2021-0 Yes 4647 1{tbl} Take 1 Un laure -acetaminop 4-20 tablet by ity of hen (NORCO) 00:00: mouth [place] 10-325 mg 00 every 6 Medical tablet (six) Branch hours as needed for Pain (scale 7-10). Indication s: acute pain HYDROcodone 2021-0 Yes 4647 1{tbl} Take 1 Un laure -acetaminop 4-20 tablet by ity of hen (NORCO) 00:00: mouth [place] 10-325 mg 00 every 6 Medical tablet (six) Branch hours as needed for Pain (scale 7-10). Indication s: acute pain HYDROcodone 2022-0 Yes 4647 1{tbl} Take 1 Un laure -acetaminop 4-20 tablet by ity of hen (NORCO) 00:00: mouth [place] 10-325 mg 00 every 6 Medical tablet (six) Branch hours as needed for Pain (scale 7-10). Indication s: acute pain HYDROcodone 2022-0 Yes 4647 1{tbl} Take 1 Un laure -acetaminop 4-20 tablet by ity of hen (NORCO) 00:00: mouth [place] 10-325 mg 00 every 6 Medical tablet (six) Branch hours as needed for Pain (scale 7-10). Indication s: acute pain HYDROcodone 2022-0 Yes 4647 1{tbl} Take 1 Un laure -acetaminop 4-20 tablet by ity of hen (NORCO) 00:00: mouth [place] 10-325 mg 00 every 6 Medical tablet (six) Branch hours as needed for Pain (scale 7-10). Indication s: acute pain HYDROcodone 2022-0 Yes 4647 1{tbl} Take 1 Un laure -acetaminop 4-20 tablet by ity of hen (NORCO) 00:00: mouth [place] 10-325 mg 00 every 6 Medical tablet (six) Branch hours as needed for Pain (scale 7-10). Indication s: acute pain HYDROcodone 2022-0 Yes 4647 1{tbl} Take 1 Un laure -acetaminop 4-20 tablet by ity of hen (NORCO) 00:00: mouth [place] 10-325 mg 00 every 6 Medical tablet (six) Branch hours as needed for Pain (scale 7-10). Indication s: acute pain HYDROcodone 2022-0 Yes 4647 1{tbl} Take 1 Un laure -acetaminop 4-20 tablet by ity of hen (NORCO) 00:00: mouth [place] 10-325 mg 00 every 6 Medical tablet (six) Branch hours as needed for Pain (scale 7-10). Indication s: acute pain HYDROcodone 2022-0 Yes 4647 1{tbl} Take 1 Un laure -acetaminop 4-20 tablet by ity of hen (NORCO) 00:00: mouth [place] 10-325 mg 00 every 6 Medical tablet (six) Branch hours as needed for Pain (scale 7-10). Indication s: acute pain HYDROcodone 2022-0 Yes 4647 1{tbl} Take 1 Un laure -acetaminop 4-20 tablet by ity of hen (NORCO) 00:00: mouth [place] 10-325 mg 00 every 6 Medical tablet (six) Branch hours as needed for Pain (scale 7-10). Indication s: acute pain HYDROcodone 2022-0 Yes 4647 1{tbl} Take 1 Un laure -acetaminop 4-20 tablet by ity of hen (NORCO) 00:00: mouth [place] 10-325 mg 00 every 6 Medical tablet (six) Branch hours as needed for Pain (scale 7-10). Indication s: acute pain HYDROcodone 2022-0 Yes 4647 1{tbl} Take 1 Un laure -acetaminop 4-20 tablet by ity of hen (NORCO) 00:00: mouth [place] 10-325 mg 00 every 6 Medical tablet (six) Branch hours as needed for Pain (scale 7-10). Indication s: acute pain HYDROcodone 2-0 Yes 4647 1{tbl} Take 1 Un laure -acetaminop 4-20 tablet by ity of hen (NORCO) 00:00: mouth [place] 10-325 mg 00 every 6 Medical tablet (six) Branch hours as needed for Pain (scale 7-10). Indication s: acute pain HYDROcodone 2022-0 Yes 4647 1{tbl} Take 1 Un laure -acetaminop 4-20 tablet by ity of hen (NORCO) 00:00: mouth [place] 10-325 mg 00 every 6 Medical tablet (six) Branch hours as needed for Pain (scale 7-10). Indication s: acute pain HYDROcodone 2022-0 Yes 4647 1{tbl} Take 1 Un laure -acetaminop 4-20 tablet by ity of hen (NORCO) 00:00: mouth [place] 10-325 mg 00 every 6 Medical tablet (six) Branch hours as needed for Pain (scale 7-10). Indication s: acute pain HYDROcodone 2022-0 Yes 4647 1{tbl} Take 1 Un laure -acetaminop 4-20 tablet by ity of hen (iDoc24) 00:00: mouth [place] 10-325 mg 00 every 6 Medical tablet (six) Branch hours as needed for Pain (scale 7-10). Indication s: acute pain HYDROcodone 2021-0 Yes 4647 1{tbl} Take 1 Un laure -acetaminop 4-20 tablet by ity of hen (iDoc24) 00:00: mouth [place] 10-325 mg 00 every 6 Medical tablet (six) Branch hours as needed for Pain (scale 7-10). Indication s: acute pain HYDROcodone 2021- Yes 4647 1{tbl} Take 1 Un laure -acetaminop 4-20 tablet by ity of hen (iDoc24) 00:00: mouth [place] 10-325 mg 00 every 6 Medical tablet (six) Branch hours as needed for Pain (scale 7-10). Indication s: acute pain HYDROcodone 2021- No 4647 1{tbl} Take 1 U nivers -acetaminop 4-20 12-12 tablet by it y of hen (iDoc24) 00:00: 00:00 [place] 10-325 mg 00 :00 every 6 Medical tablet (six) Branch hours as needed for Pain (scale 7-10). Indication s: acute pain HYDROcodone 2021- No 4647 1{tbl} Take 1 U nivers -acetaminop 4-20 12-12 tablet by it y of hen (iDoc24) 00:00: 00:00 mouth [place] 10-325 mg 00 :00 every 6 Medical tablet (six) Branch hours as needed for Pain (scale 7-10). Indication s: acute pain furosemide 2021- No [id number] 40mg 40 mg, Univers (LASIX) 02-03 Slow IV ity of injection 17:45: 17:40 Push, [place] 40 mg 00 :00 ONCE, 1 Medical dose, On Branch Tue02/03/22 at 1245, Routine tc 2021- No [id number] 9.8mCi 9.8 Univer s 99m-mertiat 02-03 millicurie i ty of ruiz 17:00: 17:00 , [place] (TECHNESCAN 00 :00 Intravenou Me dical MAG3) s, ONCE, 1 Branch injection dose, On 9.8 Tue [facility] 02/03/22 at 1200, Routine lisinopril No 1mg 10 mg 4-12 tablet 00:00: 00 lisinopril 0 No 1mg 10 mg 4-12 tablet 00:00: 00 Dose 2021-0 No Unknown 4-12 00:00: 00 TAKE 1 0 No TABLET 4-12 DAILY. 00:00: 00 cefTRIAXone 2021- No [id number] 1000mg Univers (ROCEPHIN) 01-25 ity of injection 14:45: 13:30 [place] 1,000 mg 00 :00 [facility] cefTRIAXone 2021- No [id number] 1000mg 1,000 mg, Univers (ROCEPHIN) 01-25 Intramuscu it y of injection 14:45: 13:30 [place], ONCE, [place] 1,000 mg 00 :00 1 dose, On Medic al Tue01/25/22 Branch at 0945, JEAN CLAUDE
Re ason for Anti-Infec tive: Surgical Prophylaxi s
Surgi juan c Prophylaxi s: Genitourin wilmar
Dur ation of therapy: within 24 hours of surgery cefTRIAXone 2021- No [id number] 1000mg [facility] (ROCEPHIN) 01-25 ity of injection 14:45: 13:30 [place] 1,000 mg 00 :00 [facility] cefTRIAXone 2021- No [id number] 1000mg 1,000 mg, [facility] (ROCEPHIN) 01-25 Intramuscu it y of injection 14:45: 13:30 [place], [place]CE, [place] 1,000 mg 00 :00 1 dose, On Medic al Tue01/25/22 Branch at 0945, JEAN CLAUDE
Re ason for Anti-Infec tive: Surgical Prophylaxi s
Surgi juan c Prophylaxi s: Genitourin wilmar
Dur ation of therapy: within 24 hours of surgery Dose 2021-0 No Unknown 3-29 00:00: 00 Dose 2021-0 No Unknown 3-29 00:00: 00 Dose 2022-0 No Unknown 3-29 00:00: 00 Dose 2022-0 No Unknown 3-29 00:00: 00 Dose 2022-0 No Unknown 3-29 00:00: 00 Dose 2022-0 No Unknown 3-29 00:00: 00 Dose 2022-0 No Unknown 3-29 00:00: 00 Dose 2022-0 No Unknown 3-29 00:00: 00 Dose 2022-0 No Unknown 3-18 00:00: 00 Dose 2022-0 No Unknown 3-18 00:00: 00 Dose 2022-0 No Unknown 3-18 00:00: 00 Dose 2022-0 No Unknown 3-18 00:00: 00 Dose 2022-0 No Unknown 3-18 00:00: 00 Dose 2022-0 No Unknown 3-18 00:00: 00 Dose 2022-0 No Unknown 3-18 00:00: 00 Dose 2022-0 No Unknown 3-18 00:00: 00 Dose 2022-0 No Unknown 3-18 00:00: 00 Dose 2022-0 No Unknown 3-18 00:00: 00 Dose 2022-0 No Unknown 3-18 00:00: 00 Dose 2022-0 No Unknown 3-18 00:00: 00 Dose 2022-0 No Unknown 3-18 00:00: 00 Dose 2022-0 No Unknown 3-18 00:00: 00 Dose 2022-0 No Unknown 3-18 00:00: 00 Dose 2022-0 No Unknown 3-18 00:00: 00 Dose 2022-0 No Unknown 3-18 00:00: 00 Dose 2022-0 No Unknown 3-18 00:00: 00 Dose 2022-0 No Unknown 3-18 00:00: 00 Dose 2022-0 No Unknown 3-18 00:00: 00 Dose 2022-0 No Unknown 3-18 00:00: 00 Dose 2022-0 No Unknown 3-18 00:00: 00 Dose 2022-0 No Unknown 3-18 00:00: 00 Dose 2022-0 No Unknown 3-18 00:00: 00 Dose 2022-0 No Unknown 3-18 00:00: 00 Dose 2022-0 No Unknown 3-18 00:00: 00 Dose 2022-0 No Unknown 3-18 00:00: 00 Dose 2022-0 No Unknown 3-18 00:00: 00 Dose 2022-0 No Unknown 3-18 00:00: 00 Dose 2022-0 No Unknown 3-18 00:00: 00 Dose 2022-0 No Unknown 3-18 00:00: 00 Dose 2022-0 No Unknown 3-18 00:00: 00 Dose 2022-0 No Unknown 3-18 00:00: 00 Dose 2022-0 No Unknown 3-18 00:00: 00 Dose 2022-0 No Unknown 3-18 00:00: 00 Dose 2022-0 No Unknown 3-18 00:00: 00 Dose 2022-0 No Unknown 3-18 00:00: 00 Dose 2022-0 No Unknown 3-18 00:00: 00 Dose 2022-0 No Unknown 3-18 00:00: 00 Dose 2022-0 No Unknown 3-18 00:00: 00 Dose 2022-0 No Unknown 3-18 00:00: 00 Dose 2022-0 No Unknown 3-18 00:00: 00 Dose 2022-0 No Unknown 3-18 00:00: 00 Dose 2022-0 No Unknown 3-18 00:00: 00 Dose 2022-0 No Unknown 3-18 00:00: 00 Dose 2022-0 No Unknown 3-18 00:00: 00 Dose 2022-0 No Unknown 3-18 00:00: 00 Dose 2022-0 No Unknown 3-18 00:00: 00 Dose 2022-0 No Unknown 3-18 00:00: 00 Dose 2022-0 No Unknown 3-18 00:00: 00 Dose 2022-0 No Unknown 3-18 00:00: 00 Dose 2022-0 No Unknown 3-18 00:00: 00 Dose 2022-0 No Unknown 3-18 00:00: 00 Dose 2022-0 No Unknown 3-18 00:00: 00 Dose 2022-0 No Unknown 3-18 00:00: 00 Dose 2022-0 No Unknown 3-18 00:00: 00 Dose 2022-0 No Unknown 3-18 00:00: 00 Dose 2022-0 No Unknown 3-18 00:00: 00 Dose 2022-0 No Unknown 3-18 00:00: 00 Dose 2022-0 No Unknown 3-18 00:00: 00 Dose 2022-0 No Unknown 3-18 00:00: 00 Dose 2022-0 No Unknown 3-18 00:00: 00 Dose 2022-0 No Unknown 3-18 00:00: 00 Dose 2022-0 No Unknown 3-18 00:00: 00 Dose 2022-0 No Unknown 3-18 00:00: 00 Dose 2022-0 No Unknown 3-18 00:00: 00 Dose 2022-0 No Unknown 3-18 00:00: 00 Dose 2022-0 No Unknown 3-18 00:00: 00 Dose 2022-0 No Unknown 3-18 00:00: 00 Dose 2022-0 No Unknown 3-18 00:00: 00 Dose 2022-0 No Unknown 3-18 00:00: 00 Dose 2022-0 No Unknown 3-18 00:00: 00 Dose 2022-0 No Unknown 3-16 00:00: 00 Dose 2022-0 No Unknown 3-16 00:00: 00 Dose 2022-0 No Unknown 3-16 00:00: 00 Dose 2022-0 No Unknown 3-16 00:00: 00 Dose 2022-0 No Unknown 3-16 00:00: 00 Dose 2022-0 No Unknown 3-16 00:00: 00 Dose 2022-0 No Unknown 3-16 00:00: 00 Dose 2022-0 No Unknown 3-16 00:00: 00 Dose 2022-0 No Unknown 3-16 00:00: 00 Dose 2022-0 No Unknown 3-16 00:00: 00 Dose 2022-0 No Unknown 3-16 00:00: 00 Dose 2022-0 No Unknown 3-16 00:00: 00 Dose 2022-0 No Unknown 3-16 00:00: 00 Dose 2022-0 No Unknown 3-16 00:00: 00 Dose 2022-0 No Unknown 3-16 00:00: 00 Dose 2022-0 No Unknown 3-16 00:00: 00 Dose 2022-0 No Unknown 3-16 00:00: 00 Dose 2022-0 No Unknown 3-16 00:00: 00 Dose 2022-0 No Unknown 3-16 00:00: 00 Dose 2022-0 No Unknown 3-16 00:00: 00 Dose 2022-0 No Unknown 3-16 00:00: 00 Dose 2022-0 No Unknown 3-16 00:00: 00 Dose 2022-0 No Unknown 3-16 00:00: 00 Dose 2022-0 No Unknown 3-16 00:00: 00 Dose 2022-0 No Unknown 3-16 00:00: 00 Dose 2022-0 No Unknown 3-16 00:00: 00 Dose 2022-0 No Unknown 3-16 00:00: 00 Dose 2022-0 No Unknown 3-16 00:00: 00 Dose 2022-0 No Unknown 3-16 00:00: 00 Dose 2022-0 No Unknown 3-16 00:00: 00 Dose 2022-0 No Unknown 3-16 00:00: 00 Dose 2022-0 No Unknown 3-16 00:00: 00 Dose 2022-0 No Unknown 3-16 00:00: 00 Dose 2022-0 No Unknown 3-16 00:00: 00 Dose 2022-0 No Unknown 3-16 00:00: 00 Dose 2022-0 No Unknown 3-16 00:00: 00 Dose 2022-0 No Unknown 3-16 00:00: 00 Dose 2022-0 No Unknown 3-16 00:00: 00 Dose 2022-0 No Unknown 3-16 00:00: 00 Dose 2022-0 No Unknown 3-16 00:00: 00 Dose 2022-0 No Unknown 3-16 00:00: 00 Dose 2022-0 No Unknown 3-16 00:00: 00 Dose 2022-0 No Unknown 3-16 00:00: 00 Dose 2022-0 No Unknown 3-16 00:00: 00 Dose 2022-0 No Unknown 3-16 00:00: 00 Dose 2022-0 No Unknown 3-16 00:00: 00 Dose 2022-0 No Unknown 3-16 00:00: 00 Dose 2022-0 No Unknown 3-16 00:00: 00 Dose 2022-0 No Unknown 3-16 00:00: 00 Dose 2022-0 No Unknown 3-16 00:00: 00 Dose 2022-0 No Unknown 3-16 00:00: 00 Dose 2022-0 No Unknown 3-16 00:00: 00 Dose 2022-0 No Unknown 3-16 00:00: 00 Dose 2022-0 No Unknown 3-16 00:00: 00 Dose 2022-0 No Unknown 3-16 00:00: 00 Dose 2022-0 No Unknown 3-16 00:00: 00 Dose 2022-0 No Unknown 3-16 00:00: 00 Dose 2022-0 No Unknown 3-16 00:00: 00 Dose 2022-0 No Unknown 3-16 00:00: 00 Dose 2022-0 No Unknown 3-16 00:00: 00 Dose 2022-0 No Unknown 3-16 00:00: 00 Dose 2022-0 No Unknown 3-16 00:00: 00 Dose 2022-0 No Unknown 3-16 00:00: 00 Dose 2022-0 No Unknown 3-16 00:00: 00 Dose 2022-0 No Unknown 3-16 00:00: 00 Dose 2022-0 No Unknown 3-16 00:00: 00 Dose 2022-0 No Unknown 3-16 00:00: 00 Dose 2022-0 No Unknown 3-16 00:00: 00 Dose 2022-0 No Unknown 3-16 00:00: 00 Dose 2022-0 No Unknown 3-16 00:00: 00 Dose 2022-0 No Unknown 3-16 00:00: 00 Dose 2022-0 No Unknown 3-16 00:00: 00 Dose 2022-0 No Unknown 3-11 00:00: 00 Dose 2022-0 No Unknown 3-11 00:00: 00 Dose 2022-0 No Unknown 3-11 00:00: 00 Dose 2022-0 No Unknown 3-11 00:00: 00 Dose 2022-0 No Unknown 3-11 00:00: 00 Dose 2022-0 No Unknown 3-11 00:00: 00 Dose 2022-0 No Unknown 3-11 00:00: 00 Dose 2022-0 No Unknown 3-11 00:00: 00 Dose 2022-0 No Unknown 3-11 00:00: 00 Dose 2022-0 No Unknown 3-11 00:00: 00 Dose 2022-0 No Unknown 3-11 00:00: 00 Dose 2022-0 No Unknown 3-11 00:00: 00 Dose 2022-0 No Unknown 3-11 00:00: 00 Dose 2022-0 No Unknown 3-11 00:00: 00 Dose 2022-0 No Unknown 3-11 00:00: 00 Dose 2022-0 No Unknown 3-11 00:00: 00 Dose 2022-0 No Unknown 3-11 00:00: 00 Dose 2022-0 No Unknown 3-11 00:00: 00 Dose 2022-0 No Unknown 3-11 00:00: 00 Dose 2022-0 No Unknown 3-11 00:00: 00 Dose 2022-0 No Unknown 3-11 00:00: 00 Dose 2022-0 No Unknown 3-11 00:00: 00 Dose 2022-0 No Unknown 3-11 00:00: 00 Dose 2022-0 No Unknown 3-11 00:00: 00 Dose 2022-0 No Unknown 2-25 00:00: 00 Dose 2022-0 No Unknown 2-25 00:00: 00 Dose 2022-0 No Unknown 2-25 00:00: 00 Dose 2022-0 No Unknown 2-25 00:00: 00 Dose 2022-0 No Unknown 2-25 00:00: 00 Dose 2022-0 No Unknown 2-25 00:00: 00 Dose 2022-0 No Unknown 2-25 00:00: 00 Dose 2022-0 No Unknown 2-25 00:00: 00 Dose 2022-0 No Unknown 2-25 00:00: 00 Dose 2022-0 No Unknown 2-25 00:00: 00 Dose 2022-0 No Unknown 2-25 00:00: 00 Dose 2022-0 No Unknown 2-25 00:00: 00 Dose 2022-0 No Unknown 2-25 00:00: 00 Dose 2022-0 No Unknown 2-25 00:00: 00 Dose 2022-0 No Unknown 2-25 00:00: 00 Dose 2022-0 No Unknown 2-25 00:00: 00 Dose 2022-0 No Unknown 2-24 00:00: 00 Dose 2022-0 No Unknown 2-24 00:00: 00 Dose 2022-0 No Unknown 2-24 00:00: 00 Dose 2022-0 No Unknown 2-24 00:00: 00 Dose 2022-0 No Unknown 2-24 00:00: 00 Dose 2022-0 No Unknown 2-24 00:00: 00 Dose 2022-0 No Unknown 2-24 00:00: 00 Dose 2022-0 No Unknown 2-24 00:00: 00 Dose 2022-0 No Unknown 2-24 00:00: 00 Dose 2022-0 No Unknown 2-24 00:00: 00 Dose 2022-0 No Unknown 2-24 00:00: 00 Dose 2022-0 No Unknown 2-24 00:00: 00 Dose 2022-0 No Unknown 2-24 00:00: 00 Dose 2022-0 No Unknown 2-24 00:00: 00 Dose 2022-0 No Unknown 2-24 00:00: 00 Dose 2022-0 No Unknown 2-24 00:00: 00 Dose 2022-0 No Unknown 2-24 00:00: 00 Dose 2022-0 No Unknown 2-24 00:00: 00 Dose 2022-0 No Unknown 2-24 00:00: 00 Dose 2022-0 No Unknown 2-24 00:00: 00 Dose 2022-0 No Unknown 2-24 00:00: 00 Dose 2022-0 No Unknown 2-24 00:00: 00 Dose 2022-0 No Unknown 2-24 00:00: 00 Dose 2022-0 No Unknown 2-24 00:00: 00 Dose 2022-0 No Unknown 2-24 00:00: 00 Dose 2022-0 No Unknown 2-24 00:00: 00 Dose 2022-0 No Unknown 2-24 00:00: 00 Dose 2022-0 No Unknown 2-24 00:00: 00 Dose 2022-0 No Unknown 2-24 00:00: 00 Dose 2022-0 No Unknown 2-24 00:00: 00 Dose 2022-0 No Unknown 2-24 00:00: 00 Dose 2022-0 No Unknown 2-24 00:00: 00 Dose 2022-0 No Unknown 2-24 00:00: 00 Dose 2022-0 No Unknown 2-24 00:00: 00 Dose 2022-0 No Unknown 2-24 00:00: 00 Dose 2022-0 No Unknown 2-24 00:00: 00 Dose 2022-0 No Unknown 2-24 00:00: 00 Dose 2022-0 No Unknown 2-24 00:00: 00 Dose 2022-0 No Unknown 2-24 00:00: 00 Dose 2022-0 No Unknown 2-24 00:00: 00 Dose 2022-0 No Unknown 2-23 00:00: 00 Dose 2022-0 No Unknown 2-23 00:00: 00 Dose 2022-0 No Unknown 2-23 00:00: 00 Dose 2022-0 No Unknown 2-23 00:00: 00 Dose 2-0 No Unknown 2-23 00:00: 00 Dose 2-0 No Unknown 2-23 00:00: 00 Dose 2-0 No Unknown 2-23 00:00: 00 Dose 2-0 No Unknown 2-23 00:00: 00 Dose 2-0 No Unknown 2-23 00:00: 00 Dose 2-0 No Unknown 2-23 00:00: 00 Dose 2-0 No Unknown 2-23 00:00: 00 Dose 2-0 No Unknown 2-23 00:00: 00 Dose 2021-0 No Unknown 2-23 00:00: 00 Dose 2021-0 No Unknown 2-23 00:00: 00 Dose 2021-0 No Unknown 2-23 00:00: 00 Dose 2021-0 No Unknown 2-23 00:00: 00 Dose 2021-0 No Unknown 2-23 00:00: 00 Dose 2-0 No Unknown 2-23 00:00: 00 Dose 2021-0 No Unknown 2-23 00:00: 00 Dose 2021-0 No Unknown 2-23 00:00: 00 Dose 2021-0 No Unknown 2-22 00:00: 00 Dose 2021-0 No Unknown 2-22 00:00: 00 Dose 2021-0 No Unknown 2-22 00:00: 00 Dose 2021-0 No Unknown 2-22 00:00: 00 Dose 2021-0 No Unknown 2-22 00:00: 00 Dose 2-0 No Unknown 2-22 00:00: 00 Dose 2-0 No Unknown 2-22 00:00: 00 Dose 2021-0 No Unknown 2-22 00:00: 00 Saccharomyc 2021-0 Yes [id number] 250mg Take 1 [facility] es 1-20 capsule by ity of perla 00:00: mouth 2 [place] (FLORASTOR) 00 (two) Medical 250 mg times Branch capsule daily. ondansetron Yes [id number] 4mg Take 1 [facility] (ZOFRAN 1-20 tablet by ity of ODT) 4 mg 00:00: mouth [place] disintegrat 00 every 8 Medic al ing tablet (eight) Branch hours as needed for Nausea and Vomiting (N/V). dicyclomine 2022-0 Yes [id number] 10mg Take 1 [facility] 10 mg 1-20 capsule by ity of capsule 00:00: mouth 4 [place] 00 (four) Medical times Branch daily as needed for Abdominal pain. Saccharomyc 2-0 Yes [id number] 250mg Take 1 [facility] es 1-20 capsule by ity of boulardii 00:00: mouth 2 [place] (FLORASTOR) 00 (two) Medical 250 mg times Branch capsule daily. ondansetron 2-0 Yes [id number] 4mg Take 1 [facility] (ZOFRAN 1-20 tablet by ity of ODT) 4 mg 00:00: mouth [place] disintegrat 00 every 8 Medic al ing tablet (eight) Branch hours as needed for Nausea and Vomiting (N/V). dicyclomine 2-0 Yes [id number] 10mg Take 1 [facility] 10 mg 1-20 capsule by ity of capsule 00:00: mouth 4 [place] 00 (four) Medical times Branch daily as needed for Abdominal pain. Saccharomyc 2021-0 Yes [id number] 250mg Take 1 [facility] es 1-20 capsule by ity of boulardii 00:00: mouth 2 [place] (FLORASTOR) 00 (two) Medical 250 mg times Branch capsule daily. ondansetron 2-0 Yes [id number] 4mg Take 1 [facility] (ZOFRAN 1-20 tablet by ity of ODT) 4 mg 00:00: mouth [place] disintegrat 00 every 8 Medic al ing tablet (eight) Branch hours as needed for Nausea and Vomiting (N/V). dicyclomine 2-0 Yes [id number] 10mg Take 1 [facility] 10 mg 1-20 capsule by ity of capsule 00:00: mouth 4 [place] 00 (four) Medical times Branch daily as needed for Abdominal pain. Saccharomyc 2-0 Yes [id number] 250mg Take 1 [facility] es 1-20 capsule by ity of boulardii 00:00: mouth 2 [place] (FLORASTOR) 00 (two) Medical 250 mg times Branch capsule daily. ondansetron 2022-0 Yes [id number] 4mg Take 1 [facility] (ZOFRAN 1-20 tablet by ity of ODT) 4 mg 00:00: mouth [place] disintegrat 00 every 8 Medic al ing tablet (eight) Branch hours as needed for Nausea and Vomiting (N/V). dicyclomine 2022-0 Yes [id number] 10mg Take 1 [facility] 10 mg 1-20 capsule by ity of capsule 00:00: mouth 4 [place] 00 (four) Medical times Branch daily as needed for Abdominal pain. Saccharomyc 2022-0 Yes [id number] 250mg Take 1 [facility] es 1-20 capsule by ity of boulardii 00:00: mouth 2 [place] ([facility]) 00 (two) Medical 250 mg times Branch capsule daily. ondansetron 2022-0 Yes [id number] 4mg Take 1 [facility] (ZOFRAN 1-20 tablet by ity of ODT) 4 mg 00:00: mouth [place] disintegrat 00 every 8 Medic al ing tablet (eight) Branch hours as needed for Nausea and Vomiting (N/V). dicyclomine 2-0 Yes [id number] 10mg Take 1 [facility] 10 mg 1-20 capsule by ity of capsule 00:00: mouth 4 [place] 00 (four) Medical times Branch daily as needed for Abdominal pain. Saccharomyc 2-0 Yes [id number] 250mg Take 1 [facility] es 1-20 capsule by ity of boulardii 00:00: mouth 2 [place] (FLORASTOR) 00 (two) Medical 250 mg times Branch capsule daily. ondansetron 2021-0 Yes [id number] 4mg Take 1 [facility] (ZOFRAN 1-20 tablet by ity of ODT) 4 mg 00:00: mouth [place] disintegrat 00 every 8 Medic al ing tablet (eight) Branch hours as needed for Nausea and Vomiting (N/V). dicyclomine 2-0 Yes [id number] 10mg Take 1 [facility] 10 mg 1-20 capsule by ity of capsule 00:00: mouth 4 [place] 00 (four) Medical times Branch daily as needed for Abdominal pain. Saccharomyc 2022-0 Yes [id number] 250mg Take 1 [facility] es 1-20 capsule by ity of boulardii 00:00: mouth 2 [place] (FL[facility]AST[facility]) 00 (two) Medical 250 mg times Branch capsule daily. ondansetron 2022-0 Yes [id number] 4mg Take 1 [facility] (ZOFRAN 1-20 tablet by ity of ODT) 4 mg 00:00: mouth [place] disintegrat 00 every 8 Medic al ing tablet (eight) Branch hours as needed for Nausea and Vomiting (N/V). dicyclomine 2022-0 Yes [id number] 10mg Take 1 [facility] 10 mg 1-20 capsule by ity of capsule 00:00: mouth 4 [place] 00 (four) Medical times Branch daily as needed for Abdominal pain. Saccharomyc 2022-0 Yes [id number] 250mg Take 1 [facility] es 1-20 capsule by ity of boulardii 00:00: mouth 2 [place] ([facility]) 00 (two) Medical 250 mg times Branch capsule daily. ondansetron 2022-0 Yes [id number] 4mg Take 1 [facility] (ZOFRAN 1-20 tablet by ity of ODT) 4 mg 00:00: mouth [place] disintegrat 00 every 8 Medic al ing tablet (eight) Branch hours as needed for Nausea and Vomiting (N/V). dicyclomine 2022-0 Yes [id number] 10mg Take 1 [facility] 10 mg 1-20 capsule by ity of capsule 00:00: mouth 4 [place] 00 (four) Medical times Branch daily as needed for Abdominal pain. Saccharomyc 2-0 Yes [id number] 250mg Take 1 [facility] es 1-20 capsule by ity of boulardii 00:00: mouth 2 [place] ([facility]) 00 (two) Medical 250 mg times Branch capsule daily. ondansetron 2-0 Yes [id number] 4mg Take 1 [facility] (ZOFRAN 1-20 tablet by ity of ODT) 4 mg 00:00: mouth [place] disintegrat 00 every 8 Medic al ing tablet (eight) Branch hours as needed for Nausea and Vomiting (N/V). dicyclomine 2022-0 Yes [id number] 10mg Take 1 [facility] 10 mg 1-20 capsule by ity of capsule 00:00: mouth 4 [place] 00 (four) Medical times Branch daily as needed for Abdominal pain. Saccharomyc 2022-0 Yes [id number] 250mg Take 1 [facility] es 1-20 capsule by ity of boulardii 00:00: mouth 2 [place] ([facility]) 00 (two) Medical 250 mg times Branch capsule daily. ondansetron 2022-0 Yes [id number] 4mg Take 1 [facility] (ZOFRAN 1-20 tablet by ity of ODT) 4 mg 00:00: mouth [place] disintegrat 00 every 8 Medic al ing tablet (eight) Branch hours as needed for Nausea and Vomiting (N/V). dicyclomine 2022-0 Yes [id number] 10mg Take 1 [facility] 10 mg 1-20 capsule by ity of capsule 00:00: mouth 4 [place] 00 (four) Medical times Branch daily as needed for Abdominal pain. Saccharomyc 2022-0 Yes [id number] 250mg Take 1 [facility] es 1-20 capsule by ity of boulardii 00:00: mouth 2 [place] ([facility]) 00 (two) Medical 250 mg times Branch capsule daily. ondansetron 2022-0 Yes [id number] 4mg Take 1 [facility] (ZOFRAN 1-20 tablet by ity of ODT) 4 mg 00:00: mouth [place] disintegrat 00 every 8 Medic al ing tablet (eight) Branch hours as needed for Nausea and Vomiting (N/V). dicyclomine 2022-0 Yes [id number] 10mg Take 1 [facility] 10 mg 1-20 capsule by ity of capsule 00:00: mouth 4 00 (four) Medical times Branch daily as needed for Abdominal pain. Saccharomyc 2-0 Yes [id number] 250mg Take 1 [facility] es 1-20 capsule by ity of boulardii 00:00: mouth 2 [place] ([facility]) 00 (two) Medical 250 mg times Branch capsule daily. ondansetron 2-0 Yes [id number] 4mg Take 1 [facility] (ZOFRAN 1-20 tablet by ity of ODT) 4 mg 00:00: mouth [place] disintegrat 00 every 8 Medic al ing tablet (eight) Branch hours as needed for Nausea and Vomiting (N/V). dicyclomine 2022-0 Yes [id number] 10mg Take 1 [facility] 10 mg 1-20 capsule by ity of capsule 00:00: mouth 4 [place] 00 (four) Medical times Branch daily as needed for Abdominal pain. Saccharomyc 2022-0 Yes [id number] 250mg Take 1 [facility] es 1-20 capsule by ity of boulardii 00:00: mouth 2 [place] ([facility]) 00 (two) Medical 250 mg times Branch capsule daily. ondansetron 2022-0 Yes [id number] 4mg Take 1 [facility] (ZOFRAN 1-20 tablet by ity of ODT) 4 mg 00:00: mouth [place] disintegrat 00 every 8 Medic al ing tablet (eight) Branch hours as needed for Nausea and Vomiting (N/V). dicyclomine 2022-0 Yes [id number] 10mg Take 1 [facility] 10 mg 1-20 capsule by ity of capsule 00:00: mouth 4 [place] 00 (four) Medical times Branch daily as needed for Abdominal pain. Saccharomyc 2022-0 Yes [id number] 250mg Take 1 [facility] es 1-20 capsule by ity of boulardii 00:00: mouth 2 [place] ([facility]) 00 (two) Medical 250 mg times Branch capsule daily. ondansetron 2022-0 Yes [id number] 4mg Take 1 [facility] (ZOFRAN 1-20 tablet by ity of ODT) 4 mg 00:00: mouth [place] disintegrat 00 every 8 Medic al ing tablet (eight) Branch hours as needed for Nausea and Vomiting (N/V). dicyclomine 2022-0 Yes [id number] 10mg Take 1 [facility] 10 mg 1-20 capsule by ity of capsule 00:00: mouth 4 (four) Medical times Branch daily as needed for Abdominal pain. Saccharomyc 2022-0 Yes [id number] 250mg Take 1 [facility] es 1-20 capsule by ity of boulardii 00:00: mouth 2 [place] ([facility]) 00 (two) Medical 250 mg times Branch capsule daily. ondansetron 2022-0 Yes [id number] 4mg Take 1 [facility] (ZOFRAN 1-20 tablet by ity of ODT) 4 mg 00:00: mouth [place] disintegrat 00 every 8 Medic al ing tablet (eight) Branch hours as needed for Nausea and Vomiting (N/V). dicyclomine 2022-0 Yes [id number] 10mg Take 1 [facility] 10 mg 1-20 capsule by ity of capsule 00:00: mouth 4 00 (four) Medical times Branch daily as needed for Abdominal pain. Saccharomyc 2022-0 Yes [id number] 250mg Take 1 [facility] es 1-20 capsule by ity of boulardii 00:00: mouth 2 [place] ([facility]) 00 (two) Medical 250 mg times Branch capsule daily. ondansetron 2022-0 Yes [id number] 4mg Take 1 [facility] (ZOFRAN 1-20 tablet by ity of ODT) 4 mg 00:00: mouth [place] disintegrat 00 every 8 Medic al ing tablet (eight) Branch hours as needed for Nausea and Vomiting (N/V). dicyclomine 2022-0 Yes [id number] 10mg Take 1 [facility] 10 mg 1-20 capsule by ity of capsule 00:00: mouth 4 [place] 00 (four) Medical times Branch daily as needed for Abdominal pain. Saccharomyc 2022-0 Yes [id number] 250mg Take 1 [facility] es 1-20 capsule by ity of boulardii 00:00: mouth 2 [place] ([facility]) 00 (two) Medical 250 mg times Branch capsule daily. ondansetron 2022-0 Yes [id number] 4mg Take 1 [facility] (ZOFRAN 1-20 tablet by ity of ODT) 4 mg 00:00: mouth [place] disintegrat 00 every 8 Medic al ing tablet (eight) Branch hours as needed for Nausea and Vomiting (N/V). dicyclomine 2022-0 Yes [id number] 10mg Take 1 [facility] 10 mg 1-20 capsule by ity of capsule 00:00: mouth 4 00 (four) Medical times Branch daily as needed for Abdominal pain. Saccharomyc 2022-0 Yes [id number] 250mg Take 1 [facility] es 1-20 capsule by ity of boulardii 00:00: mouth 2 [place] ([facility]) 00 (two) Medical 250 mg times Branch capsule daily. ondansetron 2022-0 Yes [id number] 4mg Take 1 [facility] (ZOFRAN 1-20 tablet by ity of ODT) 4 mg 00:00: mouth [place] disintegrat 00 every 8 Medic al ing tablet (eight) Branch hours as needed for Nausea and Vomiting (N/V). dicyclomine 2022-0 Yes [id number] 10mg Take 1 [facility] 10 mg 1-20 capsule by ity of capsule 00:00: mouth 4 [place] 00 (four) Medical times Branch daily as needed for Abdominal pain. Saccharomyc 2022-0 Yes [id number] 250mg Take 1 [facility] es 1-20 capsule by ity of boulardii 00:00: mouth 2 [place] ([facility]) 00 (two) Medical 250 mg times Branch capsule daily. ondansetron 2022-0 Yes [id number] 4mg Take 1 [facility] (ZOFRAN 1-20 tablet by ity of ODT) 4 mg 00:00: mouth [place] disintegrat 00 every 8 Medic al ing tablet (eight) Branch hours as needed for Nausea and Vomiting (N/V). dicyclomine 2022-0 Yes [id number] 10mg Take 1 [facility] 10 mg 1-20 capsule by ity of capsule 00:00: mouth 4 [place] 00 (four) Medical times Branch daily as needed for Abdominal pain. Saccharomyc 2022-0 Yes [id number] 250mg Take 1 [facility] es 1-20 capsule by ity of boulardii 00:00: mouth 2 [place] ([facility]) 00 (two) Medical 250 mg times Branch capsule daily. ondansetron 2022-0 Yes [id number] 4mg Take 1 [facility] (ZOFRAN 1-20 tablet by ity of ODT) 4 mg 00:00: mouth [place] disintegrat 00 every 8 Medic al ing tablet (eight) Branch hours as needed for Nausea and Vomiting (N/V). dicyclomine 2022-0 Yes [id number] 10mg Take 1 [facility] 10 mg 1-20 capsule by ity of capsule 00:00: mouth 4 [place] 00 (four) Medical times Branch daily as needed for Abdominal pain. Saccharomyc 2022-0 Yes [id number] 250mg Take 1 [facility] es 1-20 capsule by ity of boulardii 00:00: mouth 2 [place] ([facility]) 00 (two) Medical 250 mg times Branch capsule daily. ondansetron 2022-0 Yes [id number] 4mg Take 1 [facility] (ZOFRAN 1-20 tablet by ity of ODT) 4 mg 00:00: mouth [place] disintegrat 00 every 8 Medic al ing tablet (eight) Branch hours as needed for Nausea and Vomiting (N/V). dicyclomine 2022-0 Yes [id number] 10mg Take 1 [facility] 10 mg 1-20 capsule by ity of capsule 00:00: mouth 4 [place] 00 (four) Medical times Branch daily as needed for Abdominal pain. Saccharomyc 2022-0 Yes [id number] 250mg Take 1 [facility] es 1-20 capsule by ity of boulardii 00:00: mouth 2 [place] (FLORASTOR) 00 (two) Medical 250 mg times Branch capsule daily. ondansetron 2022-0 Yes [id number] 4mg Take 1 [facility] (ZOFRAN 1-20 tablet by ity of ODT) 4 mg 00:00: mouth [place] disintegrat 00 every 8 Medic al ing tablet (eight) Branch hours as needed for Nausea and Vomiting (N/V). dicyclomine 2022-0 Yes [id number] 10mg Take 1 [facility] 10 mg 1-20 capsule by ity of capsule 00:00: mouth 4 [place] 00 (four) Medical times Branch daily as needed for Abdominal pain. Saccharomyc 2022-0 Yes [id number] 250mg Take 1 [facility] es 1-20 capsule by ity of boulardii 00:00: mouth 2 [place] (FLORASTOR) 00 (two) Medical 250 mg times Branch capsule daily. ondansetron 2022-0 Yes [id number] 4mg Take 1 [facility] (ZOFRAN 1-20 tablet by ity of ODT) 4 mg 00:00: mouth [place] disintegrat 00 every 8 Medic al ing tablet (eight) Branch hours as needed for Nausea and Vomiting (N/V). dicyclomine 2022-0 Yes [id number] 10mg Take 1 [facility] 10 mg 1-20 capsule by ity of capsule 00:00: mouth 4 [place] 00 (four) Medical times Branch daily as needed for Abdominal pain. Saccharomyc 2022-0 Yes [id number] 250mg Take 1 [facility] es 1-20 capsule by ity of boulardii 00:00: mouth 2 [place] (FLORASTOR) 00 (two) Medical 250 mg times Branch capsule daily. ondansetron 2022-0 Yes [id number] 4mg Take 1 [facility] (ZOFRAN 1-20 tablet by ity of ODT) 4 mg 00:00: mouth [place] disintegrat 00 every 8 Medic al ing tablet (eight) Branch hours as needed for Nausea and Vomiting (N/V). dicyclomine 2022-0 Yes [id number] 10mg Take 1 [facility] 10 mg 1-20 capsule by ity of capsule 00:00: mouth 4 [place] 00 (four) Medical times Branch daily as needed for Abdominal pain. Saccharomyc 2022-0 Yes [id number] 250mg Take 1 [facility] 1-20 capsule by [facility] 00:00: mouth 2 [place] (FLORASTOR) 00 (two) Medical 250 mg times Branch capsule daily. ondansetron 2022-0 Yes [id number] 4mg Take 1 [facility] (ZOFRAN 1-20 tablet by ity of ODT) 4 mg 00:00: mouth [place] disintegrat 00 every 8 Medic al ing tablet (eight) Branch hours as needed for Nausea and Vomiting (N/V). dicyclomine Yes [id number] 10mg Take 1 [facility] 10 mg 1-20 capsule by ity of capsule 00:00: mouth 4 [place] 00 (four) Medical times Branch daily as needed for Abdominal pain. Saccharomyc 2021- No [id number] 250mg Take 1 [facility] es 1-20 12-12 capsule by [facility] [place] 00:00: 00:[place] :[place] (two) Medical 250 mg times Branch capsule daily. ondansetron 2021- No [id number] 4mg Take 1 [facility] (ZOFRAN 1-20 12-12 tablet by ity of ODT) 4 mg 00:00: 00:00 mouth [place] disintegrat 00 :00 every 8 Medic al ing tablet (eight) Branch hours as needed for Nausea and Vomiting (N/V). dicyclomine 2021- No [id number] 10mg Take 1 [facility] 10 mg 1-20 12-12 capsule by ity of capsule 00:00: 00:00 mouth 4 [place] 00 :00 (four) Medical times Branch daily as needed for Abdominal pain. Saccharomyc 2021- No [id number] 250mg Take 1 [facility] es 1-20 12-12 capsule by [facility] [place] 00:00: 00:[place] :[place] (two) Medical 250 mg times Branch capsule daily. ondansetron 2021- No [id number] 4mg Take 1 [facility] (ZOFRAN 1-20 12-12 tablet by ity of ODT) 4 mg 00:00: 00:00 mouth [place] disintegrat 00 :00 every 8 Medic al ing tablet (eight) Branch hours as needed for Nausea and Vomiting (N/V). dicyclomine 2021- No [id number] 10mg Take 1 [facility] 10 mg 1-20 12-12 capsule by ity of capsule 00:00: 00:00 mouth 4 [place] 00 :00 (four) Medical times Branch daily as needed for Abdominal pain. mirtazapine 0 Yes 15mg 15 mg at [facility] 15 mg 1-17 bedtime as ity of tablet 00:00: needed. [place] [facility] mirtazapine 2022-0 Yes 15mg 15 mg at [facility] 15 mg 1-17 bedtime as ity of tablet 00:00: needed. [place] [facility] mirtazapine 2022-0 Yes 15mg 15 mg at [facility] 15 mg 1-17 bedtime as ity of tablet 00:00: needed. [place] [facility] mirtazapine 2022-0 Yes 15mg 15 mg at [facility] 15 mg 1-17 bedtime as ity of tablet 00:00: needed. [place] [facility] mirtazapine 2022-0 Yes 15mg 15 mg at [facility] 15 mg 1-17 bedtime as ity of tablet 00:00: needed. [place] [facility] mirtazapine 2022-0 Yes 15mg 15 mg at [facility] 15 mg 1-17 bedtime as ity of tablet 00:00: needed. [place] [facility] mirtazapine 2022-0 Yes 15mg 15 mg at [facility] 15 mg 1-17 bedtime as ity of tablet 00:00: needed. [place] [facility] mirtazapine 2022-0 Yes 15mg 15 mg at [facility] [place] 15 mg 1-17 bedtime as ity of tablet 00:00: needed. [place] [facility] mirtazapine 2022-0 Yes 15mg 15 mg at [facility] [place] 15 mg 1-17 bedtime as ity of tablet 00:00: needed. [place] [facility] mirtazapine 2022-0 Yes 15mg 15 mg at [facility] [place] 15 mg 1-17 bedtime as ity of tablet 00:00: needed. [place] [facility] mirtazapine 2022-0 Yes 15mg 15 mg at [facility] [place] 15 mg 1-17 bedtime as ity of tablet 00:00: needed. [place] [facility] mirtazapine 2022-0 Yes 15mg 15 mg at [facility] 15 mg 1-17 bedtime as ity of tablet 00:00: needed. [place] [facility] mirtazapine 2022-0 Yes 15mg 15 mg at [facility] [place] 15 mg 1-17 bedtime as ity of tablet 00:00: needed. [place] [facility] mirtazapine 2022-0 Yes 15mg 15 mg at [facility] [place] 15 mg 1-17 bedtime as ity of tablet 00:00: needed. [facility] Branch mirtazapine 2022-0 Yes 15mg 15 mg at [facility] [place] 15 mg 1-17 bedtime as ity of tablet 00:00: needed. [facility] Branch mirtazapine 2022-0 Yes 15mg 15 mg at [place] 15 mg 1-17 bedtime as ity of tablet 00:00: needed. [facility] Branch mirtazapine 2022-0 Yes 15mg 15 mg at [place] 15 mg 1-17 bedtime as ity of tablet 00:00: needed. [place] [facility] mirtazapine 2022-0 Yes 15mg 15 mg at [facility] [place] 15 mg 1-17 bedtime as ity of tablet 00:00: needed. [place] [facility] mirtazapine 2022-0 Yes 15mg 15 mg at [place] 15 mg 1-17 bedtime as ity of tablet 00:00: needed. [place] [facility] mirtazapine 2022-0 Yes 15mg 15 mg at [facility] [place] 15 mg 1-17 bedtime as ity of tablet 00:00: needed. [place] [facility] mirtazapine 2022-0 Yes 15mg 15 mg at [place] 15 mg 1-17 bedtime as ity of tablet 00:00: needed. [place] [facility] mirtazapine 2022-0 Yes 15mg 15 mg at [place] 15 mg 1-17 bedtime as ity of tablet 00:00: needed. [place] [facility] mirtazapine 2022-0 Yes 15mg 15 mg at [place] 15 mg 1-17 bedtime as ity of tablet 00:00: needed. [place] [facility] mirtazapine 2022-0 Yes 15mg 15 mg at [facility] [place] 15 mg 1-17 bedtime as ity of tablet 00:00: needed. [place] [facility] mirtazapine 2022-0 Yes 15mg 15 mg at [facility] [place] 15 mg 1-17 bedtime as ity of tablet 00:00: needed. [place] [facility] mirtazapine 2022-0 Yes 15mg 15 mg at [facility] [place] 15 mg 1-17 bedtime as ity of tablet 00:00: needed. [place] [facility] mirtazapine 2022-0 Yes 15mg 15 mg at [facility] [place] 15 mg 1-17 bedtime as ity of tablet 00:00: needed. [place] [facility] mirtazapine 2022-0 Yes 15mg 15 mg at [place] 15 mg 1-17 bedtime as ity of tablet 00:00: needed. [place] [facility] mirtazapine 2022-0 Yes 15mg 15 mg at [place] 15 mg 1-17 bedtime as ity of tablet 00:00: needed. [place] [facility] mirtazapine 2022-0 Yes 15mg 15 mg at [place] 15 mg 1-17 bedtime as ity of tablet 00:00: needed. [place] [facility] mirtazapine 2022-0 Yes 15mg 15 mg at [place] 15 mg 1-17 bedtime as ity of tablet 00:00: needed. [place] [facility] mirtazapine 2022-0 Yes 15mg 15 mg at [place] 15 mg 1-17 bedtime as ity of tablet 00:00: needed. [place] [facility] mirtazapine 2022-0 Yes Univer s 15 mg 1-17 ity of tablet 00:00: [place] [address] Medical Branch mirtazapine 2022-0 Yes Univer s 15 mg 1-17 ity of tablet 00:00: [place] [facility] mirtazapine 2022-0 Yes Univer s 15 mg 1-17 ity of tablet 00:00: [place] [address] Medical Branch mirtazapine 2022-0 Yes Univer s 15 mg 1-17 ity of tablet 00:00: [place] [facility] mirtazapine 2022-0 Yes Univer s 15 mg 1-17 ity of tablet 00:00: [place] [address] Medical Branch mirtazapine 2022-0 Yes Univer s 15 mg 1-17 ity of tablet 00:00: [place] [address] Medical Branch mirtazapine 2022-0 Yes Univer s 15 mg 1-17 ity of tablet 00:00: [place] [address] Medical Branch mirtazapine 2022-0 Yes Univer s 15 mg 1-17 ity of tablet 00:00: [place] [address] Medical Branch mirtazapine 2022-0 Yes Univer s 15 mg 1-17 ity of tablet 00:00: [place] [address] Medical Branch mirtazapine 2022-0 Yes Univer s 15 mg 1-17 ity of tablet 00:00: [place] [facility] mirtazapine 2022-0 Yes Univer s 15 mg 1-17 ity of tablet 00:00: [place] [facility] mirtazapine 2-0 Yes Univer s 15 mg 1-17 ity of tablet 00:00: [place] [address] Medical Branch mirtazapine 2-0 Yes Univer s 15 mg 1-17 ity of tablet 00:00: [place] [facility] mirtazapine 2021-0 Yes Univer s 15 mg 1-17 ity of tablet 00:00: [place] [address] [facility] Branch mirtazapine 2021-0 Yes Univer s 15 mg 1-17 ity of tablet 00:00: [place] [address] Medical Branch mirtazapine 2021-0 Yes Univer s 15 mg 1-17 ity of tablet 00:00: [place] [address] Medical Branch mirtazapine 2021-0 Yes Univer s 15 mg 1-17 ity of tablet 00:00: [place] [address] Medical Branch mirtazapine 2021-0 Yes Univer s 15 mg 1-17 ity of tablet 00:00: [place] [address] Medical Branch mirtazapine 2021-0 Yes Univer s 15 mg 1-17 ity of tablet 00:00: [place] [address] Medical Branch mirtazapine 2021-0 Yes Univer s 15 mg 1-17 ity of tablet 00:00: [place] [address] Medical Branch mirtazapine 2021-0 Yes Univer s 15 mg 1-17 ity of tablet 00:00: [place] [address] Medical Branch mirtazapine 2-0 Yes Univer s 15 mg 1-17 ity of tablet 00:00: [place] [address] Medical Branch mirtazapine 2-0 Yes Univer s 15 mg 1-17 ity of tablet 00:00: [place] [address] Medical Branch mirtazapine 2-0 Yes Univer s 15 mg 1-17 ity of tablet 00:00: [place] [address] Medical Branch mirtazapine 2021-0 Yes Univer s 15 mg 1-17 ity of tablet 00:00: [place] [address] Medical Branch mirtazapine 2-0 Yes 15mg 15 mg at [facility] 15 mg 1-17 bedtime as ity of tablet 00:00: needed. [place] [address] Medical Branch mirtazapine 2022-0 Yes 15mg 15 mg at [facility] 15 mg 1-17 bedtime as ity of tablet 00:00: needed. [address] Branch mirtazapine 2022-0 Yes 15mg 15 mg at [facility] 15 mg 1-17 bedtime as ity of tablet 00:00: needed. [address] mirtazapine 2022-0 Yes 15mg 15 mg at [facility] 15 mg 1-17 bedtime as ity of tablet 00:00: needed. [address] Dose 2022-0 No Unknown 1-17 00:00: 00 Lexapro 20 2022-0 No 1mg mg tablet 1-17 00:00: 00 mirtazapine 2022-0 No 1mg 15 mg 1-17 tablet 00:00: 00 ferrous 2-0 No 1(65 mg sulfate 325 1-17 iron) mg (65 mg 00:00: iron) 00 tablet Dose 2-0 No Unknown 1-17 00:00: 00 Lexapro 20 2022-0 No 1mg mg tablet 1-17 00:00: 00 mirtazapine 2022-0 No 1mg 15 mg 1-17 tablet 00:00: 00 Dose 2022-0 No Unknown 1-17 00:00: 00 Dose 2022-0 No Unknown 1-17 00:00: 00 Lexapro 20 2022-0 No 1mg mg tablet 1-17 00:00: 00 mirtazapine 2022-0 No 1mg 15 mg 1-17 tablet 00:00: 00 ferrous 2022-0 No 1(65 mg sulfate 325 1-17 iron) mg (65 mg 00:00: iron) 00 tablet Dose 2-0 No Unknown 1-17 00:00: 00 Lexapro 20 2022-0 No 1mg mg tablet 1-17 00:00: 00 mirtazapine 2022-0 No 1mg 15 mg 1-17 tablet 00:00: 00 Dose 2022-0 No Unknown 1-17 00:00: 00 ferrous 2-0 No 1(65 mg sulfate 325 1-16 iron) mg (65 mg 00:00: iron) 00 tablet ferrous 2022-0 No 1(65 mg sulfate 325 1-16 iron) mg (65 mg 00:00: iron) 00 tablet ferrous 2-0 No 1(65 mg sulfate 325 1-16 iron) mg (65 mg 00:00: iron) 00 tablet ferrous 2021-0 No 1(65 mg sulfate 325 1-16 iron) mg (65 mg 00:00: iron) 00 tablet cyclobenzap 2020-10 Yes Univer s rine 5 mg 2-09 ity of tablet 00:00: [place] [facility] cyclobenzap 2020-10 Yes Univer s rine 5 mg 2-09 ity of tablet 00:00: [place] [facility] cyclobenzap 2020-10 Yes Univer s rine 5 mg 2-09 ity of tablet 00:00: [place] [facility] cyclobenzap 2020-10 Yes Univer s rine 5 mg 2-09 ity of tablet 00:00: [place] [facility] cyclobenzap 2020-10 Yes Univer s rine 5 mg 2-09 ity of tablet 00:00: [place] [facility] cyclobenzap 2020-10 Yes Univer s rine 5 mg 2-09 ity of tablet 00:00: [place] [facility] cyclobenzap 2020-10 Yes Univer s rine 5 mg 2-09 ity of tablet 00:00: [place] [facility] cyclobenzap 2020-10 Yes Univer s rine 5 mg 2-09 ity of tablet 00:00: [place] [facility] cyclobenzap 2020-10 Yes Univer s rine 5 mg 2-09 ity of tablet 00:00: [place] [facility] cyclobenzap 2020-10 Yes Univer s rine 5 mg 2-09 ity of tablet 00:00: [place] [facility] cyclobenzap 2020-10 Yes Univer s rine 5 mg 2-09 ity of tablet 00:00: [place] [facility] cyclobenzap 2020-10 Yes Univer s rine 5 mg 2-09 ity of tablet 00:00: [place] [facility] cyclobenzap 2020-10 Yes Univer s rine 5 mg 2-09 ity of tablet 00:00: [place] [facility] cyclobenzap 2020-10 Yes Univer s rine 5 mg 2-09 ity of tablet 00:00: [place] [facility] cyclobenzap 2020-10 Yes Univer s rine 5 mg 2-09 ity of tablet 00:00: [place] [facility] cyclobenzap 2020-10 Yes Univer s rine 5 mg 2-09 ity of tablet 00:00: [place] 00 [facility] Branch cyclobenzap 2020- Yes Univer s rine 5 mg 2-09 ity of tablet 00:00: [address] Branch cyclobenzap 2020- Yes Univer s rine 5 mg 2-09 ity of tablet 00:00: [address] Branch cyclobenzap 2020-10 Yes Univer s rine 5 mg 2-09 ity of tablet 00:00: [address] cyclobenzap 2020- Yes Univer s rine 5 mg 2-09 ity of tablet 00:00: [address] cyclobenzap 2020-10 Yes Univer s rine 5 mg 2-09 ity of tablet 00:00: [address] cyclobenzap 2020- Yes Univer s rine 5 mg 2-09 ity of tablet 00:00: [address] cyclobenzap 2020-10 Yes Univer s rine 5 mg 2-09 ity of tablet 00:00: [address] cyclobenzap 2020- Yes Univer s rine 5 mg 2-09 ity of tablet 00:00: [address] cyclobenzap 2020-10 Yes Univer s rine 5 mg 2-09 ity of tablet 00:00: [address] dicyclomine 2020- No 1mg 20 mg 2-09 tablet 00:00: 00 dicyclomine 2020-1 No 1mg 20 mg 2-09 tablet 00:00: 00 cyclobenzap 2020- No 12mg rine 5 mg 2-09 tablet 00:00: 00 dicyclomine 2020-1 No 1mg 20 mg 2-09 tablet 00:00: 00 Dose 2020-1 No Unknown 2-09 00:00: 00 Dose 2020-1 No Unknown 2-09 00:00: 00 dicyclomine 2020-1 No 1mg 20 mg 2-09 tablet 00:00: 00 dicyclomine 2020-1 No 1mg 20 mg 2-09 tablet 00:00: 00 cyclobenzap 2020-1 No 12mg rine 5 mg 2-09 tablet 00:00: 00 dicyclomine 2020-1 No 1mg 20 mg 2-09 tablet 00:00: 00 Dose 2021-1 No Unknown 2-09 00:00: 00 Dose 1-1 No Unknown 2-09 00:00: 00 cyclobenzap 2020-1 2- No Unive rs rine 5 mg 2-07 05- ity of tablet 00:00: 00:00 [place] 00 :00 Medical Branch cyclobenzap 2020-1 2022- No Unive rs rine 5 mg -07 05- ity of tablet 00:00: 00:00 [place] 00 :00 Medical Branch lisinopril 1-1 No 1mg 10 mg 1-30 tablet 00:00: 00 lisinopril 1-1 No 1mg 10 mg 1-30 tablet 00:00: 00 lisinopril 1-1 No 1mg 10 mg 1-30 tablet 00:00: 00 lisinopril 1-1 No 1mg 10 mg 1-30 tablet 00:00: 00 Bromfed DM 1-1 No 75mg/5 2 mg-30 0-19 mL mg-10 mg/5 00:00: mL oral 00 syrup Dose 2020-1 No Unknown 0-19 00:00: 00 Bromfed DM 1-1 No 75mg/5 2 mg-30 0-19 mL mg-10 mg/5 00:00: mL oral 00 syrup Dose 2020-1 No Unknown 0-19 00:00: 00 ibuprofen 2021-0 No 1mg 600 mg 9-23 tablet 00:00: 00 lisinopril 2021-0 No 1mg 10 mg 9-23 tablet 00:00: 00 cyclobenzap 1-0 No 12mg rine 5 mg 9-23 tablet 00:00: 00 Dose 2021-0 No Unknown 9-23 00:00: 00 lisinopriL 2021-0 Yes 10mg Take 10 mg U nivers 10 mg 9-23 by mouth ity of tablet 00:00: daily. [address] Branch lisinopriL 1-0 Yes 10mg Take 10 mg U nivers 10 mg 9-23 by mouth ity of tablet 00:00: daily. [address] lisinopriL 1-0 Yes 10mg Take 10 mg U nivers 10 mg 9-23 by mouth ity of tablet 00:00: daily. [address] lisinopriL 1-0 Yes 10mg Take 10 mg U nivers 10 mg 9-23 by mouth ity of tablet 00:00: daily. Medical Branch lisinopriL 2020-0 Yes 10mg Take 10 mg U nivers 10 mg 9-23 by mouth ity of tablet 00:00: daily. [facility] Branch lisinopriL 2020-0 Yes 10mg Take 10 mg U nivers 10 mg 9-23 by mouth ity of tablet 00:00: daily. [facility] Branch lisinopriL 2020-0 Yes 10mg Take 10 mg U nivers 10 mg 9-23 by mouth ity of tablet 00:00: daily. [facility] Branch lisinopriL 2020-0 Yes 10mg Take 10 mg U nivers 10 mg 9-23 by mouth ity of tablet 00:00: daily. [facility] Branch lisinopriL 2020-0 Yes 10mg Take 10 mg U nivers 10 mg 9-23 by mouth ity of tablet 00:00: daily. [facility] Branch lisinopriL 2020-0 Yes 10mg Take 10 mg U nivers 10 mg 9-23 by mouth ity of tablet 00:00: daily. [facility] Branch lisinopriL 2020-0 Yes 10mg Take 10 mg U nivers 10 mg 9-23 by mouth ity of tablet 00:00: daily. [facility] Branch lisinopriL 2020-0 Yes 10mg Take 10 mg U nivers 10 mg 9-23 by mouth ity of tablet 00:00: daily. [facility] Branch lisinopriL 2020-0 Yes 10mg Take 10 mg U nivers 10 mg 9-23 by mouth ity of tablet 00:00: daily. [facility] Branch lisinopriL 2020-0 Yes 10mg Take 10 mg U nivers 10 mg 9-23 by mouth ity of tablet 00:00: daily. [facility] Branch lisinopriL 2020-0 Yes 10mg Take 10 mg U nivers 10 mg 9-23 by mouth ity of tablet 00:00: daily. [facility] Branch lisinopriL 1-0 Yes 10mg Take 10 mg U nivers 10 mg 9-23 by mouth ity of tablet 00:00: daily. [facility] Branch lisinopriL 2020-0 Yes 10mg Take 10 mg U nivers 10 mg 9-23 by mouth ity of tablet 00:00: daily. [facility] Branch lisinopriL 2020-0 Yes 10mg Take 10 mg U nivers 10 mg 9-23 by mouth ity of tablet 00:00: daily. [facility] Branch lisinopriL 2020-0 Yes 10mg Take 10 mg U nivers 10 mg 9-23 by mouth ity of tablet 00:00: daily. [facility] Branch lisinopriL 2020-0 Yes 10mg Take 10 mg U nivers 10 mg 9-23 by mouth ity of tablet 00:00: daily. [facility] Branch lisinopriL 2020-0 Yes 10mg Take 10 mg U nivers 10 mg 9-23 by mouth ity of tablet 00:00: daily. [facility] Branch lisinopriL 2020-0 Yes 10mg Take 10 mg U nivers 10 mg 9-23 by mouth ity of tablet 00:00: daily. [facility] Branch lisinopriL 2020-0 Yes 10mg Take 10 mg U nivers 10 mg 9-23 by mouth ity of tablet 00:00: daily. [facility] Branch lisinopriL 2020-0 Yes 10mg Take 10 mg U nivers 10 mg 9-23 by mouth ity of tablet 00:00: daily. [facility] Branch lisinopriL 2020-0 Yes 10mg Take 10 mg U nivers 10 mg 9-23 by mouth ity of tablet 00:00: daily. [facility] Branch lisinopriL 2020-0 Yes 10mg Take 10 mg U nivers 10 mg 9-23 by mouth ity of tablet 00:00: daily. [facility] Branch lisinopriL 2020-0 Yes 10mg Take 10 mg U nivers 10 mg 9-23 by mouth ity of tablet 00:00: daily. [facility] Branch lisinopriL 2020-0 Yes 10mg Take 10 mg U nivers 10 mg 9-23 by mouth ity of tablet 00:00: daily. [facility] Branch lisinopriL 2020-0 Yes 10mg Take 10 mg U nivers 10 mg 9-23 by mouth ity of tablet 00:00: daily. [facility] Branch lisinopriL 2020-0 Yes 10mg Take 10 mg U nivers 10 mg 9-23 by mouth ity of tablet 00:00: daily. [facility] Branch lisinopriL 1-0 Yes 10mg Take 10 mg U nivers 10 mg 9-23 by mouth ity of tablet 00:00: daily. Medical Branch lisinopriL 1-0 Yes 10mg Take 10 mg U nivers 10 mg 9-23 by mouth ity of tablet 00:00: daily. [facility] Branch lisinopriL 2020-0 Yes 10mg Take 10 mg U nivers 10 mg 9-23 by mouth ity of tablet 00:00: daily. [facility] Branch lisinopriL 2020-0 Yes 10mg Take 10 mg U nivers 10 mg 9-23 by mouth ity of tablet 00:00: daily. Medical Branch lisinopriL 2020-0 Yes 10mg Take 10 mg U nivers 10 mg 9-23 by mouth ity of tablet 00:00: daily. [facility] Branch lisinopriL 2020-0 Yes 10mg Take 10 mg U nivers 10 mg 9-23 by mouth ity of tablet 00:00: daily. [facility] Branch lisinopriL 2020-0 Yes 10mg Take 10 mg U nivers 10 mg 9-23 by mouth ity of tablet 00:00: daily. [facility] Branch lisinopriL 2020-0 Yes 10mg Take 10 mg U nivers 10 mg 9-23 by mouth ity of tablet 00:00: daily. [facility] Branch lisinopriL 2020-0 Yes 10mg Take 10 mg U nivers 10 mg 9-23 by mouth ity of tablet 00:00: daily. [facility] Branch lisinopriL 1-0 Yes 10mg Take 10 mg U nivers 10 mg 9-23 by mouth ity of tablet 00:00: daily. [facility] Branch lisinopriL 1-0 Yes 10mg Take 10 mg U nivers 10 mg 9-23 by mouth ity of tablet 00:00: daily. [facility] Branch lisinopriL 2020-0 Yes 10mg Take 10 mg U nivers 10 mg 9-23 by mouth ity of tablet 00:00: daily. [place] [facility] Branch lisinopriL 2020-0 Yes 10mg Take 10 mg U nivers 10 mg 9-23 by mouth ity of tablet 00:00: daily. [facility] Branch lisinopriL 1-0 Yes 10mg Take 10 mg U nivers 10 mg 9-23 by mouth ity of tablet 00:00: daily. Medical Branch lisinopriL 1-0 Yes 10mg Take 10 mg U nivers 10 mg 9-23 by mouth ity of tablet 00:00: daily. [facility] Branch lisinopriL 1-0 Yes 10mg Take 10 mg U nivers 10 mg 9-23 by mouth ity of tablet 00:00: daily. [facility] Branch lisinopriL 1-0 Yes 10mg Take 10 mg U nivers 10 mg 9-23 by mouth ity of tablet 00:00: daily. [place] [facility] Branch lisinopriL 1-0 Yes 10mg Take 10 mg U nivers 10 mg 9-23 by mouth ity of tablet 00:00: daily. [place] [facility] Branch lisinopriL 2020-0 Yes 10mg Take 10 mg U nivers 10 mg 9-23 by mouth ity of tablet 00:00: daily. [facility] Branch lisinopriL 2020-0 Yes 10mg Take 10 mg U nivers 10 mg 9-23 by mouth ity of tablet 00:00: daily. [place] [facility] Branch lisinopriL 1-0 Yes 10mg Take 10 mg U nivers 10 mg 9-23 by mouth ity of tablet 00:00: daily. [place] [facility] Branch lisinopriL 1-0 Yes 10mg Take 10 mg U nivers 10 mg 9-23 by mouth ity of tablet 00:00: daily. [facility] Branch lisinopriL 1-0 Yes 10mg Take 10 mg U nivers 10 mg 9-23 by mouth ity of tablet 00:00: daily. [place] [facility] Branch lisinopriL 1-0 Yes 10mg Take 10 mg U nivers 10 mg 9-23 by mouth ity of tablet 00:00: daily. [place] [facility] lisinopriL 2021-0 Yes 10mg Take 10 mg U nivers 10 mg 9-23 by mouth ity of tablet 00:00: daily. [place] [facility] Branch lisinopriL 1-0 Yes 10mg Take 10 mg U nivers 10 mg 9-23 by mouth ity of tablet 00:00: daily. [address] lisinopriL 2021-0 Yes 10mg Take 10 mg U nivers 10 mg 9-23 by mouth ity of tablet 00:00: daily. [address] lisinopriL 2021-0 Yes 10mg Take 10 mg U nivers 10 mg 9-23 by mouth ity of tablet 00:00: daily. [address] lisinopriL 2021-0 Yes 10mg Take 10 mg U nivers 10 mg 9-23 by mouth ity of tablet 00:00: daily. [address] lisinopriL 2021-0 Yes 10mg Take 10 mg U nivers 10 mg 9-23 by mouth ity of tablet 00:00: daily. [address] lisinopriL 2021-0 Yes 10mg Take 10 mg U nivers 10 mg 9-23 by mouth ity of tablet 00:00: daily. [address] lisinopril 2021-0 No 1mg 10 mg 9-23 tablet 00:00: 00 cyclobenzap 2021-0 No 12mg rine 5 mg 9-23 tablet 00:00: 00 ibuprofen 2021-0 No 1mg 600 mg 9-23 tablet 00:00: 00 lisinopril 2021-0 No 1mg 10 mg 9-23 tablet 00:00: 00 lisinopril 2021-0 No 1mg 10 mg 9-23 tablet 00:00: 00 cyclobenzap 2021-0 No 12mg rine 5 mg 9-23 tablet 00:00: 00 cyclobenzap 2021-0 No 12mg rine 5 mg 9-23 tablet 00:00: 00 Dose 2021-0 No Unknown 9-23 00:00: 00 Lexapro 10 2021-0 No 15mg mg tablet 7-29 00:00: 00 mirtazapine 2021-0 No 1mg 15 mg 7-29 tablet 00:00: 00 Strattera 2021-0 No 1mg 40 mg 7-29 capsule 00:00: 00 Lexapro 10 2021-0 No 15mg mg tablet 7-29 00:00: 00 mirtazapine 2021-0 No 1mg 15 mg 7-29 tablet 00:00: 00 Strattera 2021-0 No 1mg 40 mg 7-29 capsule 00:00: 00 Lexapro 10 2021-0 No 15mg mg tablet 05-21 00:00: 00 mirtazapine 2021-0 No 1mg 15 mg 7-29 tablet 00:00: 00 Strattera 1-0 No 1mg 40 mg 7- capsule 00:00: 00 Lexapro 10 2020-0 No 15mg mg tablet 05-21 00:00: 00 mirtazapine 2021-0 No 1mg 15 mg 7-29 tablet 00:00: 00 Strattera 1-0 No 1mg 40 mg 7- capsule 00:00: 00 Lexapro 10 2020-0 No 15mg mg tablet 04-28 00:00: 00 mirtazapine 2021-0 No 1mg 15 mg 7- tablet 00:00: 00 Strattera 1-0 No 1mg 40 mg 7- capsule 00:00: 00 Lexapro 10 1-0 No 15mg mg tablet 04-28 00:00: 00 mirtazapine 2021-0 No 1mg 15 mg 7- tablet 00:00: 00 Strattera 1-0 No 1mg 40 mg 7- capsule 00:00: 00 Lexapro 10 1-0 No 15mg mg tablet 04-28 00:00: 00 mirtazapine 1-0 No 1mg 15 mg 7-06 tablet 00:00: 00 Strattera 1-0 No 1mg 40 mg 7- capsule 00:00: 00 Lexapro 10 1-0 No 15mg mg tablet 04-28 00:00: 00 mirtazapine 1-0 No 1mg 15 mg 7-06 tablet 00:00: 00 Strattera 1-0 No 1mg 40 mg 7- capsule 00:00: 00 escitalopra 2020-0 Yes 10mg Take 10 mg [facility] m oxalate 706 by mouth ity of 10 mg 00:00: at [place] tablet 00 bedtime. [facility] Branch escitalopra 2020-0 Yes 10mg Take 10 mg [facility] m oxalate 7-06 by mouth ity of 10 mg 00:00: at [place] tablet 00 bedtime. Medical Branch escitalopra 2020-0 Yes 10mg Take 10 mg [facility] m oxalate 7-06 by mouth ity of 10 mg 00:00: at [place] tablet 00 bedtime. Medical Branch escitalopra 0 Yes 10mg Take 10 mg [facility] m oxalate 7-06 by mouth ity of 10 mg 00:00: at [place] tablet 00 bedtime. Medical Branch escitalopra 0 Yes 10mg Take 10 mg [facility] m oxalate 7-06 by mouth ity of 10 mg 00:00: at [place] tablet 00 bedtime. Medical Branch escitalopra 0 Yes 10mg Take 10 mg [facility] m oxalate 7-06 by mouth ity of 10 mg 00:00: at [place] tablet 00 bedtime. Medical Branch escitalopra 0 Yes 10mg Take 10 mg [facility] m oxalate 7-06 by mouth ity of 10 mg 00:00: at [place] tablet 00 bedtime. Medical Branch escitalopra 0 Yes 10mg Take 10 mg [facility] m oxalate 7-06 by mouth ity of 10 mg 00:00: at [place] tablet 00 bedtime. [facility] escitalopra 0 Yes 10mg Take 10 mg [facility] oxalate 7-06 by mouth ity of 10 mg 00:00: at [place] tablet 00 bedtime. [facility] escitalopra 0 Yes 10mg Take 10 mg [facility] oxalate 7-06 by mouth ity of 10 mg 00:00: at [place] tablet 00 bedtime. [facility] escitalopra 0 Yes 10mg Take 10 mg [facility] oxalate 7-06 by mouth ity of 10 mg 00:00: at [place] tablet 00 bedtime. [facility] escitalopra 0 Yes 10mg Take 10 mg [facility] oxalate 7-06 by mouth ity of 10 mg 00:00: at [place] tablet 00 bedtime. [facility] escitalopra 0 Yes 10mg Take 10 mg [facility] oxalate 7-06 by mouth ity of 10 mg 00:00: at [place] tablet 00 bedtime. [facility] escitalopra 0 Yes 10mg Take 10 mg [facility] oxalate 7-06 by mouth ity of 10 mg 00:00: at [place] tablet 00 bedtime. [facility] escitalopra 0 Yes 10mg Take 10 mg [facility] oxalate 7-06 by mouth ity of 10 mg 00:00: at [place] tablet 00 bedtime. [facility] escitalopra 0 Yes 10mg Take 10 mg [facility] oxalate 7-06 by mouth ity of 10 mg 00:00: at [place] tablet 00 bedtime. [facility] escitalopra 2020-0 Yes 10mg Take 10 mg [facility] oxalate 7-06 by mouth ity of 10 mg 00:00: at [place] tablet 00 bedtime. [facility] escitalopra 2020-0 Yes 10mg Take 10 mg [facility] oxalate 7-06 by mouth ity of 10 mg 00:00: at [place] tablet 00 bedtime. [facility] escitalopra 2020-0 Yes 10mg Take 10 mg [facility] oxalate 7-06 by mouth ity of 10 mg 00:00: at [place] tablet 00 bedtime. [facility] escitalopra 2020-0 Yes 10mg Take 10 mg [facility] oxalate 7-06 by mouth ity of 10 mg 00:00: at [place] tablet 00 bedtime. [facility] escitalopra 2020-0 Yes 10mg Take 10 mg [facility] oxalate 7-06 by mouth ity of 10 mg 00:00: at [place] tablet 00 bedtime. [facility] escitalopra 2020-0 Yes 10mg Take 10 mg [facility] oxalate 7-06 by mouth ity of 10 mg 00:00: at [place] tablet 00 bedtime. [facility] escitalopra 2020-0 Yes 10mg Take 10 mg [facility] oxalate 7-06 by mouth ity of 10 mg 00:00: at [place] tablet 00 bedtime. [facility] escitalopra 2020-0 Yes 10mg Take 10 mg [facility] oxalate 7-06 by mouth ity of 10 mg 00:00: at [place] tablet 00 bedtime. [facility] escitalopra 2020-0 Yes 10mg Take 10 mg [facility] oxalate 7-06 by mouth ity of 10 mg 00:00: at [place] tablet 00 bedtime. [facility] escitalopra 2020-0 Yes 10mg Take 10 mg [facility] oxalate 7-06 by mouth ity of 10 mg 00:00: at [place] tablet 00 bedtime. [facility] escitalopra 2020-0 Yes 10mg Take 10 mg [facility] oxalate 7-06 by mouth ity of 10 mg 00:00: at [place] tablet 00 bedtime. [facility] escitalopra 2020-0 Yes 10mg Take 10 mg [facility] oxalate 7-06 by mouth ity of 10 mg 00:00: at [place] tablet 00 bedtime. [facility] escitalopra 2020-0 Yes 10mg Take 10 mg [facility] oxalate 7-06 by mouth ity of 10 mg 00:00: at [place] tablet 00 bedtime. [facility] escitalopra 2020-0 Yes 10mg Take 10 mg [facility] oxalate 7-06 by mouth ity of 10 mg 00:00: at [place] tablet 00 bedtime. [facility] escitalopra 2020-0 Yes 10mg Take 10 mg [facility] oxalate 7-06 by mouth ity of 10 mg 00:00: at [place] tablet 00 bedtime. [facility] escitalopra 2020-0 Yes 10mg Take 10 mg [facility] oxalate 7-06 by mouth ity of 10 mg 00:00: at [place] tablet 00 bedtime. [facility] atomoxetine 2020-0 Yes 40mg Take 40 mg [facility] 40 mg 7-06 by mouth ity of capsule 00:00: daily. [facility] escitalopra 2020-0 Yes 10mg Take 10 mg [facility] oxalate 7-06 by mouth 2 ity of 10 mg 00:00: (two) [place] tablet 00 times Medical daily. Branch atomoxetine 2020-0 Yes 40mg Take 40 mg [facility] 40 mg 7-06 by mouth ity of capsule 00:00: daily. [facility] escitalopra 2020-0 Yes 10mg Take 10 mg [facility] oxalate 7-06 by mouth 2 ity of 10 mg 00:00: (two) [place] tablet 00 times Medical daily. [facility] atomoxetine 2020-0 Yes 40mg Take 40 mg [facility] 40 mg 7-06 by mouth ity of capsule 00:00: daily. [facility] escitalopra 2020-0 Yes 10mg Take 10 mg [facility] oxalate 7-06 by mouth 2 ity of 10 mg 00:00: (two) [place] tablet 00 times Medical daily. [facility] atomoxetine 2020-0 Yes 40mg Take 40 mg [facility] 40 mg 7-06 by mouth ity of capsule 00:00: daily. [facility] escitalopra 2020-0 Yes 10mg Take 10 mg [facility] oxalate 7-06 by mouth 2 ity of 10 mg 00:00: (two) [place] tablet 00 times Medical daily. [facility] atomoxetine 2020-0 Yes 40mg Take 40 mg [facility] 40 mg 7-06 by mouth ity of capsule 00:00: daily. [facility] escitalopra 1-0 Yes 10mg Take 10 mg [facility] oxalate 7-06 by mouth 2 ity of 10 mg 00:00: (two) [place] tablet 00 times Medical daily. [facility] atomoxetine 1-0 Yes 40mg Take 40 mg [facility] 40 mg 7-06 by mouth ity of capsule 00:00: daily. [facility] escitalopra 1-0 Yes 10mg Take 10 mg [facility] oxalate 7-06 by mouth 2 ity of 10 mg 00:00: (two) [place] tablet 00 times Medical daily. [facility] atomoxetine 1-0 Yes 40mg Take 40 mg [facility] 40 mg 7-06 by mouth ity of capsule 00:00: daily. [facility] escitalopra 1-0 Yes 10mg Take 10 mg [facility] oxalate 7-06 by mouth 2 ity of 10 mg 00:00: (two) [place] tablet 00 times Medical daily. [facility] atomoxetine 1-0 Yes 40mg Take 40 mg [facility] 40 mg 7-06 by mouth ity of capsule 00:00: daily. [facility] escitalopra 1-0 Yes 10mg Take 10 mg [facility] oxalate 7-06 by mouth 2 ity of 10 mg 00:00: (two) [place] tablet 00 times Medical daily. [facility] atomoxetine 1-0 Yes 40mg Take 40 mg [facility] 40 mg 7-06 by mouth ity of capsule 00:00: daily. [facility] escitalopra 1-0 Yes 10mg Take 10 mg [facility] oxalate 7-06 by mouth 2 ity of 10 mg 00:00: (two) [place] tablet 00 times Medical daily. [facility] atomoxetine 1-0 Yes 40mg Take 40 mg [facility] 40 mg 7-06 by mouth ity of capsule 00:00: daily. [facility] escitalopra 1-0 Yes 10mg Take 10 mg [facility] oxalate 7-06 by mouth 2 ity of 10 mg 00:00: (two) [place] tablet 00 times Medical daily. Branch atomoxetine 2021-0 Yes 40mg Take 40 mg [facility] 40 mg 7-06 by mouth ity of capsule 00:00: daily. [facility] escitalopra 1-0 Yes 10mg Take 10 mg [facility] oxalate 7-06 by mouth 2 ity of 10 mg 00:00: (two) [place] tablet 00 times Medical daily. [facility] atomoxetine 1-0 Yes 40mg Take 40 mg [facility] 40 mg 7-06 by mouth ity of capsule 00:00: daily. [facility] escitalopra 1-0 Yes 10mg Take 10 mg [facility] oxalate 7-06 by mouth 2 ity of 10 mg 00:00: (two) [place] tablet 00 times Medical daily. [facility] atomoxetine 1-0 Yes 40mg Take 40 mg [facility] 40 mg 7-06 by mouth ity of capsule 00:00: daily. [facility] escitalopra 1-0 Yes 10mg Take 10 mg [facility] oxalate 7-06 by mouth 2 ity of 10 mg 00:00: (two) [place] tablet 00 times Medical daily. [facility] atomoxetine 1-0 Yes 40mg Take 40 mg [facility] 40 mg 7-06 by mouth ity of capsule 00:00: daily. [facility] escitalopra 1-0 Yes 10mg Take 10 mg [facility] oxalate 7-06 by mouth 2 ity of 10 mg 00:00: (two) [place] tablet 00 times Medical daily. [facility] atomoxetine 1-0 Yes 40mg Take 40 mg [facility] 40 mg 7-06 by mouth ity of capsule 00:00: daily. [facility] escitalopra 1-0 Yes 10mg Take 10 mg [facility] oxalate 7-06 by mouth 2 ity of 10 mg 00:00: (two) [place] tablet 00 times Medical daily. [facility] atomoxetine 1-0 Yes 40mg Take 40 mg [facility] 40 mg 7-06 by mouth ity of capsule 00:00: daily. [facility] escitalopra 1-0 Yes 10mg Take 10 mg [facility] oxalate 7-06 by mouth 2 ity of 10 mg 00:00: (two) [place] tablet 00 times Medical daily. [facility] atomoxetine 1-0 Yes 40mg Take 40 mg [facility] 40 mg 7-06 by mouth ity of capsule 00:00: daily. [facility] escitalopra 1-0 Yes 10mg Take 10 mg [facility] oxalate 7-06 by mouth 2 ity of 10 mg 00:00: (two) [place] tablet 00 times Medical daily. [facility] atomoxetine 1-0 Yes 40mg Take 40 mg [facility] 40 mg 7-06 by mouth ity of capsule 00:00: daily. [facility] escitalopra 1-0 Yes 10mg Take 10 mg [facility] oxalate 7-06 by mouth 2 ity of 10 mg 00:00: (two) [place] tablet 00 times Medical daily. [facility] atomoxetine 1-0 Yes 40mg Take 40 mg [facility] 40 mg 7-06 by mouth ity of capsule 00:00: daily. [facility] escitalopra 1-0 Yes 10mg Take 10 mg [facility] oxalate 7-06 by mouth 2 ity of 10 mg 00:00: (two) [place] tablet 00 times Medical daily. [facility] atomoxetine 1-0 Yes 40mg Take 40 mg [facility] 40 mg 7-06 by mouth ity of capsule 00:00: daily. [facility] escitalopra 1-0 Yes 10mg Take 10 mg [facility] oxalate 7-06 by mouth 2 ity of 10 mg 00:00: (two) [place] tablet 00 times Medical daily. [facility] atomoxetine 1-0 Yes 40mg Take 40 mg [facility] 40 mg 7-06 by mouth ity of capsule 00:00: daily. [facility] escitalopra 1-0 Yes 10mg Take 10 mg [facility] oxalate 7-06 by mouth 2 ity of 10 mg 00:00: (two) [place] tablet 00 times Medical daily. [facility] atomoxetine 1-0 Yes 40mg Take 40 mg [facility] 40 mg 7-06 by mouth ity of capsule 00:00: daily. [facility] escitalopra 1-0 Yes 10mg Take 10 mg [facility] oxalate 7-06 by mouth 2 ity of 10 mg 00:00: (two) [place] tablet 00 times Medical daily. [facility] atomoxetine 1-0 Yes 40mg Take 40 mg [facility] 40 mg 7-06 by mouth ity of capsule 00:00: daily. [facility] escitalopra 1-0 Yes 10mg Take 10 mg [facility] oxalate 7-06 by mouth 2 ity of 10 mg 00:00: (two) [place] tablet 00 times Medical daily. Branch atomoxetine 2021-0 Yes 40mg Take 40 mg [facility] 40 mg 7-06 by mouth ity of capsule 00:00: daily. [facility] escitalopra 2021-0 Yes 10mg Take 10 mg [facility] oxalate 7-06 by mouth 2 ity of 10 mg 00:00: (two) [place] tablet 00 times Medical daily. [facility] atomoxetine 0 Yes 40mg Take 40 mg [facility] 40 mg 7-06 by mouth ity of capsule 00:00: daily. [place] 00 [facility] escitalopra 2020-0 Yes 10mg Take 10 mg [facility] oxalate 7-06 by mouth 2 ity of 10 mg 00:00: (two) [place] tablet 00 times Medical daily. [facility] escitalopra 2020-0 Yes 10mg Take 10 mg [facility] oxalate 7-06 by mouth ity of 10 mg 00:00: at [place] tablet 00 bedtime. [facility] escitalopra 2020-0 Yes 10mg Take 10 mg [facility] oxalate 7-06 by mouth ity of 10 mg 00:00: at [place] tablet 00 bedtime. [facility] escitalopra 2020-0 Yes 10mg Take 10 mg [facility] oxalate 7-06 by mouth ity of 10 mg 00:00: at [place] tablet 00 bedtime. [facility] escitalopra 2020-0 Yes 10mg Take 10 mg [facility] oxalate 7-06 by mouth ity of 10 mg 00:00: at [place] tablet 00 bedtime. [facility] atomoxetine 2020-0 2- No 40mg Take 40 mg [facility] 40 mg 04-28 12-12 by mouth ity of capsule 00:00: 00:00 daily. [place] 00 :00 [facility] atomoxetine 2020-0 2- No 40mg Take 40 mg [facility] 40 mg 04-28 12-12 by mouth ity of capsule 00:00: 00:00 daily. [place] 00 :00 [facility] cetirizine 2020-0 No 1mg 10 mg 6-10 tablet 00:00: 00 fluticasone 2020-0 No 2mcg/ac propionate 6-10 tuation 50 00:00: mcg/actuati 00 on nasal spray,suspe nsion Tessalon 2020-0 No 1mg Perles 100 6-10 mg capsule 00:00: 00 cetirizine 1-0 No 1mg 10 mg 6-10 tablet 00:00: 00 fluticasone 2020-0 No 2mcg/ac propionate 6-10 tuation 50 00:00: mcg/actuati 00 on nasal spray,suspe nsion Tessalon 2020-0 No 1mg Perles 100 6-10 mg capsule 00:00: 00 Dose 2021-0 No Unknown 6-10 00:00: 00 Dose 2021-0 No Unknown 6-10 00:00: 00 Dose 2021-0 No Unknown 6-10 00:00: 00 Dose 2021-0 No Unknown 6-10 00:00: 00 Dose 2021-0 No Unknown 6-10 00:00: 00 Dose 2021-0 No Unknown 6-10 00:00: 00 Lexapro 10 2021-0 No 15mg mg tablet 6-08 00:00: 00 mirtazapine 2021-0 No 1mg 15 mg 6-08 tablet 00:00: 00 Strattera 2021-0 No 1mg 40 mg 6-08 capsule 00:00: 00 Lexapro 10 2021-0 No 15mg mg tablet 6-08 00:00: 00 mirtazapine 2021-0 No 1mg 15 mg 6-08 tablet 00:00: 00 Strattera 2021-0 No 1mg 40 mg 6-08 capsule 00:00: 00 Lexapro 10 2021-0 No 15mg mg tablet 6-08 00:00: 00 mirtazapine 2021-0 No 1mg 15 mg 6-08 tablet 00:00: 00 Strattera 2021-0 No 1mg 40 mg 6-08 capsule 00:00: 00 Lexapro 10 2021-0 No 15mg mg tablet 6-08 00:00: 00 mirtazapine 2021-0 No 1mg 15 mg 6-08 tablet 00:00: 00 Strattera 2021-0 No 1mg 40 mg 6-08 capsule 00:00: 00 Lexapro 10 2021-0 No 15mg mg tablet 5-13 00:00: 00 mirtazapine 2021-0 No 1mg 15 mg 5-13 tablet 00:00: 00 Strattera 2021-0 No 1mg 40 mg 5-13 capsule 00:00: 00 Lexapro 10 2021-0 No 15mg mg tablet 5-13 00:00: 00 mirtazapine 2021-0 No 1mg 15 mg 5-13 tablet 00:00: 00 Strattera 2021-0 No 1mg 40 mg 5-13 capsule 00:00: 00 Lexapro 10 2021-0 No 15mg mg tablet 5-13 00:00: 00 mirtazapine 2021-0 No 1mg 15 mg 5-13 tablet 00:00: 00 Strattera 2021-0 No 1mg 40 mg 5-13 capsule 00:00: 00 Lexapro 10 2021-0 No 15mg mg tablet 5-13 00:00: 00 mirtazapine 2021-0 No 1mg 15 mg 5-13 tablet 00:00: 00 Strattera 2021-0 No 1mg 40 mg 5-13 capsule 00:00: 00 Tessalon 2021-0 No 1mg Perles 100 5-07 mg capsule 00:00: 00 Tessalon 2021-0 No 1mg Perles 100 5-07 mg capsule 00:00: 00 Dose 2021-0 No Unknown 5-07 00:00: 00 Dose 2021-0 No Unknown 5-07 00:00: 00 cyclobenzap 2021-0 No 12mg rine 5 mg 4-20 tablet 00:00: 00 cyclobenzap 2021-0 No 12mg rine 5 mg 4-20 tablet 00:00: 00 cyclobenzap 2021-0 No 12mg rine 5 mg 4-20 tablet 00:00: 00 cyclobenzap 2021-0 No 12mg rine 5 mg 4-20 tablet 00:00: 00 Lexapro 10 2021-0 No 15mg mg tablet 4-19 00:00: 00 mirtazapine 2021-0 No 1mg 15 mg 4-19 tablet 00:00: 00 Strattera 2021-0 No 1mg 40 mg 4-19 capsule 00:00: 00 Lexapro 10 2021-0 No 15mg mg tablet 4-19 00:00: 00 mirtazapine 2021-0 No 1mg 15 mg 4-19 tablet 00:00: 00 Strattera 2021-0 No 1mg 40 mg 4-19 capsule 00:00: 00 Lexapro 10 2021-0 No 15mg mg tablet 4-19 00:00: 00 mirtazapine 2021-0 No 1mg 15 mg 4-19 tablet 00:00: 00 Strattera 2021-0 No 1mg 40 mg 4-19 capsule 00:00: 00 Lexapro 10 2021-0 No 15mg mg tablet 4-19 00:00: 00 mirtazapine 2021-0 No 1mg 15 mg 4-19 tablet 00:00: 00 Strattera 2021-0 No 1mg 40 mg 4-19 capsule 00:00: 00 ibuprofen 2021-0 No 1mg 800 mg 4-09 tablet 00:00: 00 ibuprofen 2021-0 No 1mg 800 mg 4-09 tablet 00:00: 00 ibuprofen 2021-0 No 1mg 800 mg 4-09 tablet 00:00: 00 ibuprofen 2021-0 No 1mg 800 mg 4-09 tablet 00:00: 00 Lexapro 10 2021-0 No 15mg mg tablet 3-26 00:00: 00 Lexapro 10 2021-0 No 15mg mg tablet 3-26 00:00: 00 mirtazapine 2021-0 No 1mg 15 mg 3-26 tablet 00:00: 00 mirtazapine 2021-0 No 1mg 15 mg 3-26 tablet 00:00: 00 Strattera 2021-0 No 1mg 40 mg 3-26 capsule 00:00: 00 Strattera 2021-0 No 1mg 40 mg 3-26 capsule 00:00: 00 Lexapro 10 2021-0 No 15mg mg tablet 3-26 00:00: 00 mirtazapine 2021-0 No 1mg 15 mg 3-26 tablet 00:00: 00 Strattera 2021-0 No 1mg 40 mg 3-26 capsule 00:00: 00 Lexapro 10 1-0 No 15mg mg tablet 3-26 00:00: 00 mirtazapine 2021-0 No 1mg 15 mg 3-26 tablet 00:00: 00 Strattera 2021-0 No 1mg 40 mg 3-26 capsule 00:00: 00 lisinopril 2021-0 No 1mg 10 mg 2-26 tablet 00:00: 00 lisinopril 2021-0 No 1mg 10 mg 2-26 tablet 00:00: 00 lisinopril 2021-0 No 1mg 10 mg 2-26 tablet 00:00: 00 lisinopril 2021-0 No 1mg 10 mg 2-26 tablet 00:00: 00 Flonase 1-0 No 12mcg/a Allergy 2-16 ctuatio Relief 50 00:00: n mcg/actuati 00 on nasal spray,suspe nsion Bromfed DM 2020-0 No 75mg/5 2 mg-30 2-16 mL mg-10 mg/5 00:00: mL oral 00 syrup Flonase 1-0 No 12mcg/a Allergy 2-16 ctuatio Relief 50 00:00: n mcg/actuati 00 on nasal spray,suspe nsion Bromfed DM 1-0 No 75mg/5 2 mg-30 2-16 mL mg-10 mg/5 00:00: mL oral 00 syrup Dose 1-0 No Unknown 2-16 00:00: 00 Bromfed DM 1-0 No 75mg/5 2 mg-30 2-16 mL mg-10 mg/5 00:00: mL oral 00 syrup Dose 1-0 No Unknown 2-16 00:00: 00 Bromfed DM 2020-0 No 75mg/5 2 mg-30 2-16 mL mg-10 mg/5 00:00: mL oral 00 syrup Lexapro 10 1-0 No 15mg mg tablet 2-01 00:00: 00 mirtazapine 1-0 No 1mg 15 mg 2-01 tablet 00:00: 00 Strattera 2021-0 No 1mg 40 mg 2-01 capsule 00:00: 00 Lexapro 10 2021-0 No 15mg mg tablet 2-01 00:00: 00 mirtazapine 2021-0 No 1mg 15 mg 2-01 tablet 00:00: 00 Strattera 2021-0 No 1mg 40 mg 2-01 capsule 00:00: 00 Lexapro 10 1-0 No 15mg mg tablet 2-01 00:00: 00 mirtazapine 2021-0 No 1mg 15 mg 2-01 tablet 00:00: 00 Strattera 2021-0 No 1mg 40 mg 2-01 capsule 00:00: 00 Lexapro 10 2021-0 No 15mg mg tablet 2-01 00:00: 00 mirtazapine 2021-0 No 1mg 15 mg 2-01 tablet 00:00: 00 Strattera 2021-0 No 1mg 40 mg 2-01 capsule 00:00: 00 Lexapro 10 2021-0 No 15mg mg tablet 1-02 00:00: 00 mirtazapine 2021-0 No 1mg 15 mg 1-02 tablet 00:00: 00 Strattera 2021-0 No 1mg 40 mg 1-02 capsule 00:00: 00 Lexapro 10 1-0 No 15mg mg tablet 1-02 00:00: 00 mirtazapine 2021-0 No 1mg 15 mg 1-02 tablet 00:00: 00 Strattera 1-0 No 1mg 40 mg 1-02 capsule 00:00: 00 Lexapro 10 1-0 No 15mg mg tablet 1-02 00:00: 00 mirtazapine 1-0 No 1mg 15 mg 1-02 tablet 00:00: 00 Strattera 1-0 No 1mg 40 mg 1-02 capsule 00:00: 00 Lexapro 10 2020-0 No 15mg mg tablet -02 00:00: 00 mirtazapine 1-0 No 1mg 15 mg 1-02 tablet 00:00: 00 Strattera 2020-0 No 1mg 40 mg 1-02 capsule 00:00: 00 Lexapro 10 2019-1 No 15mg mg tablet 1-30 00:00: 00 mirtazapine 2020-1 No 1mg 15 mg 1-30 tablet 00:00: 00 Strattera 2020-1 No 1mg 40 mg 1-30 capsule 00:00: 00 Lexapro 10 2019-1 No 15mg mg tablet 1-30 00:00: 00 mirtazapine 2020-1 No 1mg 15 mg 1-30 tablet 00:00: 00 Strattera 2020-1 No 1mg 40 mg 1-30 capsule 00:00: 00 Lexapro 10 2019-1 No 15mg mg tablet 1-30 00:00: 00 mirtazapine 2020-1 No 1mg 15 mg 1-30 tablet 00:00: 00 Strattera 2020-1 No 1mg 40 mg 1-30 capsule 00:00: 00 Lexapro 10 2019-1 No 15mg mg tablet 1-30 00:00: 00 mirtazapine 2020-1 No 1mg 15 mg 1-30 tablet 00:00: 00 Strattera 2020-1 No 1mg 40 mg 1-30 capsule 00:00: 00 Lexapro 10 2019-1 No 15mg mg tablet 1-16 00:00: 00 mirtazapine 2020-1 No 1mg 15 mg 1-16 tablet 00:00: 00 Strattera 2020-1 No 1mg 40 mg 1-16 capsule 00:00: 00 Lexapro 10 2019- No 15mg mg tablet 1-16 00:00: 00 mirtazapine 2019- No 1mg 15 mg 1-16 tablet 00:00: 00 Strattera 2019- No 1mg 40 mg 1-16 capsule 00:00: 00 Lexapro 10 2019- No 15mg mg tablet 1-16 00:00: 00 mirtazapine 2019- No 1mg 15 mg 1-16 tablet 00:00: 00 Strattera 2019- No 1mg 40 mg 1-16 capsule 00:00: 00 Lexapro 10 2019- No 15mg mg tablet 1-16 00:00: 00 mirtazapine 2019- No 1mg 15 mg 1-16 tablet 00:00: 00 Strattera 2019- No 1mg 40 mg 1-16 capsule 00:00: 00 Lexapro 10 2019- No 1mg mg tablet 1-02 00:00: 00 mirtazapine 2019- No 1mg 15 mg 1-02 tablet 00:00: 00 Strattera 2019- No 1mg 40 mg 1-02 capsule 00:00: 00 Lexapro 10 2019- No 1mg mg tablet 1-02 00:00: 00 mirtazapine 2019- No 1mg 15 mg 1-02 tablet 00:00: 00 Strattera 2019- No 1mg 40 mg 1-02 capsule 00:00: 00 Lexapro 10 2019- No 1mg mg tablet 1-02 00:00: 00 mirtazapine 2019- No 1mg 15 mg 1-02 tablet 00:00: 00 Strattera 2019- No 1mg 40 mg 1-02 capsule 00:00: 00 Lexapro 10 2019- No 1mg mg tablet 1-02 00:00: 00 mirtazapine 2019- No 1mg 15 mg 1-02 tablet 00:00: 00 Strattera 2019- No 1mg 40 mg 1-02 capsule 00:00: 00 lisinopril 2019- No 1mg 10 mg 0-30 tablet 00:00: 00 lisinopril 2019- No 1mg 10 mg 0-30 tablet 00:00: 00 lisinopril 2019- No 1mg 10 mg 0-30 tablet 00:00: 00 lisinopril 2020-1 No 1mg 10 mg 0-30 tablet 00:00: 00 metronidazo 2020-1 No 1mg le 500 mg 0-29 tablet 00:00: 00 Dose 2020-1 No Unknown 0-29 00:00: 00 Dose 2020-1 No Unknown 0-29 00:00: 00 metronidazo 2020-1 No 1mg le 500 mg 0-29 tablet 00:00: 00 Lexapro 10 2019-1 No 1mg mg tablet 0-19 00:00: 00 mirtazapine 2020-1 No 1mg 15 mg 0-19 tablet 00:00: 00 Strattera 2020-1 No 1mg 40 mg 0-19 capsule 00:00: 00 Lexapro 10 2019-1 No 1mg mg tablet 0-19 00:00: 00 mirtazapine 2020-1 No 1mg 15 mg 0-19 tablet 00:00: 00 Strattera 2020-1 No 1mg 40 mg 0-19 capsule 00:00: 00 Lexapro 10 2019-1 No 1mg mg tablet 0-19 00:00: 00 mirtazapine 2020-1 No 1mg 15 mg 0-19 tablet 00:00: 00 Lexapro 10 2019-1 No 1mg mg tablet 0-19 00:00: 00 mirtazapine 2020-1 No 1mg 15 mg 0-19 tablet 00:00: 00 Strattera 2020-1 No 1mg 40 mg 0-19 capsule 00:00: 00 Strattera 2020-1 No 1mg 40 mg 0-19 capsule 00:00: 00 lisinopril 2020-0 No 1mg 10 mg 9-11 tablet 00:00: 00 lisinopril 2020-0 No 1mg 10 mg 9-11 tablet 00:00: 00 lisinopril 2020-0 No 1mg 10 mg 9-11 tablet 00:00: 00 lisinopril 2020-0 No 1mg 10 mg 9-11 tablet 00:00: 00 lisinopril 2020-0 No 1mg 10 mg 8-01 tablet 00:00: 00 lisinopril 2020-0 No 1mg 10 mg 8-01 tablet 00:00: 00 lisinopril 2020-0 No 1mg 10 mg 8-01 tablet 00:00: 00 lisinopril 2020-0 No 1mg 10 mg 8-01 tablet 00:00: 00 ibuprofen 2020-0 No 1mg 600 mg 5-13 tablet 00:00: 00 ibuprofen 2020-0 No 1mg 600 mg 5-13 tablet 00:00: 00 ibuprofen 2020-0 No 1mg 600 mg 5-13 tablet 00:00: 00 ibuprofen 2020-0 No 1mg 600 mg 5-13 tablet 00:00: 00 Immunizations Ordered Filled Immunization Date Status Comments [facility] e Immunization Name Name Influenza Virus 2022-07-22 Completed [facility], 00:[facility]:00 [place] [facility] ABX [facility] Free 6 MO-64 YRS Influenza Virus 2022-07-22 Completed [facility], 00:00:00 [place] [facility] Preserv and ABX Branch Free 6 MO-64 YRS Influenza Virus 2022-07-22 Completed [facility], 00:00:00 [place] [facility] Preserv and ABX Branch Free 6 MO-64 YRS Influenza Virus 2022-07-22 Completed [facility], 00:00:00 [place] [facility] Preserv and ABX Branch Free 6 MO-64 YRS Influenza Virus 2022-07-22 Completed [facility], 00:00:00 [place] [facility] Preserv and ABX Branch Free 6 MO-64 YRS Influenza Virus 2022-07-22 Completed [facility], 00:00:00 [place] [facility] Preserv and ABX Branch Free 6 MO-64 YRS Influenza Virus 2022-07-22 Completed [facility], 00:00:00 [place] [facility] Preserv and ABX Branch Free 6 MO-64 YRS Influenza Virus 2022-07-22 Completed [facility], 00:00:00 [place] [facility] Preserv and ABX Branch Free 6 MO-64 YRS Influenza Virus 2022-07-22 Completed [facility], 00:00:00 [place] [facility] Preserv and ABX Branch Free 6 MO-64 YRS Influenza Virus 2022-07-22 Completed [facility] IM, 00:00:00 [place] [facility] Preserv and ABX Branch Free 6 MO-64 YRS Influenza Virus 2022-07-22 Completed [facility], 00:00:00 [place] [facility] Preserv and ABX Branch Free 6 MO-64 YRS Influenza Virus 2022-07-22 Completed [facility] IM, 00:00:00 [place] [facility] Preserv and ABX Branch Free 6 MO-64 YRS Influenza Virus 2022-07-22 Completed [facility] IM, 00:00:00 [place] [facility] Preserv and ABX Branch Free 6 MO-64 YRS Influenza Virus 2022-07-22 Completed [facility] IM, 00:00:00 [place] [facility] Preserv and ABX Branch Free 6 MO-64 YRS Influenza Virus 2022-07-22 Completed [facility] IM, 00:00:00 [place] [facility] Preserv and ABX Branch Free 6 MO-64 YRS Influenza Virus 2022-07-22 Completed [facility] IM, 00:00:00 [place] [facility] Preserv and ABX Branch Free 6 MO-64 YRS Influenza Virus 2022-07-22 Completed [facility]ine [facility] IM, 00:00:00 [place] [facility] Preserv and ABX Branch Free 6 MO-64 YRS Influenza Virus 2022-07-22 Completed [facility] IM, 00:00:00 [place] [facility] Preserv and ABX Branch Free 6 MO-64 YRS Influenza Virus 2022-07-22 Completed [facility] IM, 00:00:00 [place] [facility] Preserv and ABX Branch Free 6 MO-64 YRS Influenza Virus 2022-07-22 Completed [facility] IM, 00:00:00 [place] [facility] Preserv and ABX Branch Free 6 MO-64 YRS Influenza Virus 2022-07-22 Completed [facility] IM, 00:00:00 [place] [facility] Preserv and ABX Branch Free 6 MO-64 YRS Influenza Virus 2022-07-22 Completed [facility] Vaccine Quad IM, 00:00:00 [place] [facility] Preserv and ABX Branch Free 6 MO-64 YRS Influenza Virus 2022-07-22 Completed [facility]ine Quad IM, 00:00:00 [place] [facility] Preserv and ABX Branch Free 6 MO-64 YRS Influenza Virus 2022-07-22 Completed [facility]ine Quad IM, 00:00:00 [place] [facility] Preserv and ABX Branch Free 6 MO-64 YRS Influenza Virus 2022-07-22 Completed [facility]ine Quad IM, 00:00:00 [place] [facility] Preserv and ABX Branch Free 6 MO-64 YRS Influenza Virus 2022-07-22 Completed [facility]ine Quad IM, 00:00:00 [place] [facility] Preserv and ABX Branch Free 6 MO-64 YRS Influenza Virus 2022-07-22 Completed [facility] IM, 00:00:00 [place] [facility] Preserv and ABX Branch Free 6 MO-64 YRS Influenza Virus 2022-07-22 Completed [facility] Quad IM, 00:00:00 [place] [facility] Preserv and ABX Branch Free 6 MO-64 YRS Influenza Virus 2022-07-22 Completed [facility] IM, 00:00:00 [place] [facility] Preserv and ABX Branch Free 6 MO-64 YRS Influenza Virus 2022-07-22 Completed [facility] Quad IM, 00:00:00 [place] [facility] Preserv and ABX Branch Free 6 MO-64 YRS Influenza Virus 2022-07-22 Completed [facility] IM, 00:00:00 [place] [facility] Preserv and ABX Branch Free 6 MO-64 YRS Influenza Virus 2022-07-22 Completed [facility] IM, 00:00:00 [place] [facility] Free 6 MO-64 YRS Influenza Virus 2022-07-22 Completed [facility], 00:00:00 [place] [facility] Free 6 MO-64 YRS Influenza Virus 2022-07-22 Completed [facility], 00:00:00 [place] [facility] Free 6 MO-64 YRS Influenza Virus 2022-07-22 Completed [facility], 00:00:00 [place] [facility] Free 6 MO-64 YRS Influenza Virus 2022-07-22 Completed [facility], 00:00:00 [place] [facility] Free 6 MO-64 YRS Influenza Virus 2022-07-22 Completed [facility], 00:00:00 [place] [facility] Free 6 MO-64 YRS Influenza Virus 2022-07-22 Completed [facility], 00:00:00 [place] [facility] Free 6 MO-64 YRS Influenza Virus 2022-07-22 Completed [facility], 00:00:00 [place] [facility] Free 6 MO-64 YRS Influenza Virus 2022-07-22 Completed [facility], 00:00:00 [place] [facility] Free 6 MO-64 YRS Influenza Virus 2022-07-22 Completed [facility], 00:00:00 [place] [facility] Free 6 MO-64 YRS Influenza Virus 2022-07-22 Completed [facility], 00:00:00 [place] [facility] Free 6 MO-64 YRS Influenza Virus 2022-07-22 Completed [facility], 00:00:00 [place] [facility] ABX [facility] Free 6 MO-64 YRS Influenza Virus 2022-07-22 Completed [facility], 00:00:00 [place] [facility] ABX [facility] Free 6 MO-64 YRS Influenza Virus 2022-07-22 Completed [facility], 00:00:00 [place] [facility] ABX [facility] Free 6 MO-64 YRS Influenza Virus 2022-07-22 Completed [facility], 00:00:00 [place] [facility] ABX [facility] Free 6 MO-64 YRS Influenza Virus 2022-07-22 Completed [facility], 00:00:00 [place] [facility] ABX [facility] Free 6 MO-64 YRS Influenza Virus 2021-11-05 Completed [facility], 00:00:00 [place] [facility] ABX [facility] Free 6 MO-64 YRS Influenza Virus 2021-11-05 Completed [facility], 00:00:00 [place] [facility] ABX [facility] Free 6 MO-64 YRS Influenza Virus 2021-11-05 Completed [facility], 00:00:00 [place] [facility] ABX [facility] Free 6 MO-64 YRS Influenza Virus 2021-11-05 Completed [facility], 00:00:00 [place] [facility] ABX [facility] Free 6 MO-64 YRS Influenza Virus 2021-11-05 Completed [facility], 00:00:00 [place] [facility] ABX [facility] Free 6 MO-64 YRS Influenza Virus 2021-11-05 Completed [facility], 00:00:00 [place] [facility] ABX [facility] Free 6 MO-64 YRS Influenza Virus 2021-11-05 Completed [facility], 00:00:00 [place] [facility] ABX [facility] Free 6 MO-64 YRS Influenza Virus 2021-11-05 Completed [facility], 00:00:00 [place] [facility] ABX [facility] Free 6 MO-64 YRS Influenza Virus 2021-11-05 Completed [facility], 00:00:00 [place] [facility] ABX [facility] Free 6 MO-64 YRS Influenza Virus 2021-11-05 Completed [facility], 00:00:00 [place] [facility] ABX [facility] Free 6 MO-64 YRS Influenza Virus 2021-11-05 Completed [facility], 00:00:00 [place] [facility] AB[facility] Free 6 MO-64 YRS Influenza Virus 2021-11-05 Completed [facility], 00:00:00 [place] [facility] ABX [facility] Free 6 MO-64 YRS Influenza Virus 2021-11-05 Completed [facility], 00:00:00 [place] [facility] ABX [facility] Free 6 MO-64 YRS Influenza Virus 2021-11-05 Completed [facility], 00:00:00 [place] [facility] ABX [facility] Free 6 MO-64 YRS Influenza Virus 2021-11-05 Completed [facility], 00:00:00 [place] [facility] ABX [facility] Free 6 MO-64 YRS Influenza Virus 2021-11-05 Completed [facility], 00:00:00 [place] [facility] ABX [facility] Free 6 MO-64 YRS Influenza Virus 2021-11-05 Completed [facility], 00:00:00 [place] [facility] ABX [facility] Free 6 MO-64 YRS Influenza Virus 2021-11-05 Completed [facility], 00:00:00 [place] [facility] ABX [facility] Free 6 MO-64 YRS Influenza Virus 2021-11-05 Completed [facility], 00:00:00 [place] [facility] ABX [facility] Free 6 MO-64 YRS Influenza Virus 2021-11-05 Completed [facility], 00:00:00 [place] [facility] ABX [facility] Free 6 MO-64 YRS Influenza Virus 2021-11-05 Completed [facility], 00:00:00 [place] [facility] ABX [facility] Free 6 MO-64 YRS Influenza Virus 2021-11-05 Completed [facility], 00:00:00 [place] [facility] ABX [facility] Free 6 MO-64 YRS Influenza Virus 2021-11-05 Completed [facility], 00:00:00 [place] [facility] ABX [facility] Free 6 MO-64 YRS Influenza Virus 2021-11-05 Completed [facility], 00:00:00 [place] [facility] ABX [facility] Free 6 MO-64 YRS Influenza Virus 2021-11-05 Completed [facility], 00:00:00 [place] [facility] ABX [facility] Free 6 MO-64 YRS Influenza Virus 2021-11-05 Completed [facility], 00:00:00 [place] [facility] ABX [facility] Free 6 MO-64 YRS Influenza Virus 2021-11-05 Completed [facility], 00:00:00 [place] [facility] ABX [facility] Free 6 MO-64 YRS Influenza Virus 2021-11-05 Completed [facility], 00:00:00 [place] [facility] ABX [facility] Free 6 MO-64 YRS Influenza Virus 2021-11-05 Completed [facility], 00:00:00 [place] [facility] ABX [facility] Free 6 MO-64 YRS Influenza Virus 2021-11-05 Completed [facility], 00:00:00 [place] [facility] ABX [facility] Free 6 MO-64 YRS Influenza Virus 2021-11-05 Completed [facility], 00:00:00 [place] [facility] ABX [facility] Free 6 MO-64 YRS Influenza Virus 2021-11-05 Completed [facility], 00:00:00 [place] [facility] ABX [facility] Free 6 MO-64 YRS Influenza Virus 2021-11-05 Completed [facility], 00:00:00 [place] [facility] ABX [facility] Free 6 MO-64 YRS Influenza Virus 2021-11-05 Completed [facility], 00:00:00 [place] [facility] ABX [facility] Free 6 MO-64 YRS Influenza Virus 2021-11-05 Completed [facility], 00:00:00 [place] [facility] ABX [facility] Free 6 MO-64 YRS Influenza Virus 2021-11-05 Completed [facility], 00:00:00 [place] [facility] ABX [facility] Free 6 MO-64 YRS Influenza Virus 2021-11-05 Completed [facility], 00:00:00 [place] [facility] ABX [facility] Free 6 MO-64 YRS Influenza Virus 2021-11-05 Completed [facility], 00:00:00 [place] [facility] ABX [facility] Free 6 MO-64 YRS Influenza Virus 2021-11-05 Completed [facility], 00:00:00 [place] [facility] ABX [facility] Free 6 MO-64 YRS Influenza Virus 2021-11-05 Completed [facility], 00:00:00 [place] [facility] ABX [facility] Free 6 MO-64 YRS Influenza Virus 2021-11-05 Completed [facility], 00:00:00 [place] [facility] ABX [facility] Free 6 MO-64 YRS Influenza Virus 2021-11-05 Completed [facility], 00:00:00 [place] [facility] ABX [facility] Free 6 MO-64 YRS Influenza Virus 2021-11-05 Completed [facility], 00:00:00 [place] [facility] ABX [facility] Free 6 MO-64 YRS Influenza Virus 2021-11-05 Completed [facility], 00:00:00 [place] [facility] ABX [facility] Free 6 MO-64 YRS Influenza Virus 2021-11-05 Completed [facility], 00:00:00 [place] [facility] ABX [facility] Free 6 MO-64 YRS Influenza Virus 2021-11-05 Completed [facility], 00:00:00 [place] [facility] ABX [facility] Free 6 MO-64 YRS Influenza Virus 2021-11-05 Completed [facility], 00:00:00 [place] [facility] ABX [facility] Free 6 MO-64 YRS Influenza Virus 2021-11-05 Completed [facility], 00:00:00 [place] [facility] ABX [facility] Free 6 MO-64 YRS Influenza Virus 2021-11-05 Completed [facility], 00:00:00 [place] [facility] ABX [facility] Free 6 MO-64 YRS Influenza Virus 2021-11-05 Completed [facility], 00:00:00 [place] [facility] ABX [facility] Free 6 MO-64 YRS Influenza Virus 2021-11-05 Completed [facility], 00:00:00 [place] [facility] ABX [facility] Free 6 MO-64 YRS Influenza Virus 2021-11-05 Completed [facility], 00:00:00 [place] [facility] ABX [facility] Free 6 MO-64 YRS Influenza Virus 2021-11-05 Completed [facility], 00:00:00 [place] [facility] ABX [facility] Free 6 MO-64 YRS Influenza Virus 2021-11-05 Completed [facility], 00:00:00 [place] [facility] ABX [facility] Free 6 MO-64 YRS Influenza Virus 2021-11-05 Completed [facility], 00:00:00 [place] [facility] Pres[facility] ABX [facility] Free 6 MO-64 YRS Influenza Virus 2021-11-05 Completed [facility], 00:00:00 [place] [facility] Pres[facility] ABX [facility] Free 6 MO-64 YRS Influenza Virus 2021-11-05 Completed [facility], 00:00:00 [place] [facility] Pres[facility] ABX [facility] Free 6 MO-64 YRS Influenza Virus 2021-11-05 Completed [facility], 00:00:00 [place] [facility] Pres[facility] ABX [facility] Free 6 MO-64 YRS Influenza Virus 2021-11-05 Completed [facility], 00:00:00 [place] [facility] Pres[facility] ABX [facility] Free 6 MO-64 YRS Influenza Virus 2021-11-05 Completed [facility], 00:00:00 [place] [facility] ABX [facility] Free 6 MO-64 YRS Influenza Virus 2021-11-05 Completed [facility], 00:00:00 [place] [facility] Free 6 MO-64 YRS Influenza, 2020-08-20 Completed injectable 00:00:00 pneumococcal 2020-08-20 Completed polysacchar 00:00:00 zoster 2020-08-20 Completed 00:00:00 Influenza, 2020-08-20 Completed injectable 00:00:00 pneumococcal 2020-08-20 Completed polysacchar 00:00:00 zoster 2020-08-20 Completed 00:00:00 Influenza, 2020-08-20 Completed injectable 00:00:00 pneumococcal 2020-08-20 Completed polysacchar 00:00:00 zoster 2020-08-20 Completed 00:00:00 Influenza, 2020-08-20 Completed injectable 00:00:00 pneumococcal 2020-08-20 Completed polysacchar 00:00:00 zoster 2020-08-20 Completed 00:00:00 Vital Signs Vital Name Observation Time Observation Value Comments Source Systolic blood 2023-02-28 19:26:00 115 mm[Hg] Univer sity of pressure [facility] Diastolic blood 2023-02-28 19:26:00 81 mm[Hg] Unive [facility] Heart rate 2023-02-28 19:26:00 85 /[facility] Body temperature 2023-02-28 19:26:00 36.67 Veronica [facility] Respiratory rate 2023-02-28 19:26:00 18 /min [facility] Body height 2023-02-28 19:26:00 149.9 cm [facility] Body weight 2023-02-28 19:26:00 69.083 kg [facility] BMI 2023-02-28 19:26:00 30.76 kg/m2 [facility] Oxygen saturation in 2023-02-28 19:26:00 100 /min [facility] [place] [facility] P[facility] oxim[facility] Systolic blood 2022-11-16 15:55:00 117 mm[Hg] Univer sity of pressure [facility] Diastolic blood 2022-11-16 15:55:00 73 mm[Hg] Unive rsity of pressure [facility] Heart rate 2022-11-16 15:55:00 63 /min [facility] Body height 2022-11-16 15:55:00 149.9 cm [facility] Body weight 2022-11-16 15:55:00 66.225 kg [facility] BMI 2022-11-16 15:55:00 29.49 kg/m2 [facility] Oxygen saturation in 2022-11-16 15:55:00 98 /min [facility] [place] [facility] Systolic blood 2022-10-26 21:24:00 127 mm[Hg] Univer sity of pressure [facility] Diastolic blood 2022-10-26 21:24:00 66 mm[Hg] Unive rsity of pressure [facility] Heart rate 2022-10-26 21:24:00 81 /min [facility] Body temperature 2022-10-26 21:24:00 37 Veronica [facility] Body height 2022-10-26 21:24:00 147.3 cm [facility] Body weight 2022-10-26 21:24:00 67.994 kg [facility] BMI 2022-10-26 21:24:00 31.33 kg/m2 [facility] Oxygen saturation in 2022-10-26 21:24:00 97 /min [facility] by [employer] juan c Pulse oximetry [facility] Systolic blood 2022-10-04 16:45:00 131 mm[Hg] Univer sity of pressure [facility] Diastolic blood 2022-10-04 16:45:00 68 mm[Hg] Unive rsity of pressure [facility] Heart rate 2022-10-04 16:45:00 88 /min [facility] Respiratory rate 2022-10-04 16:45:00 15 /min [facility] Oxygen saturation in 2022-10-04 16:45:00 96 /min [facility] by [facility] juan c Pulse oxim[facility] Body height 2022-10-04 12:58:00 149.9 cm [facility] Body weight 2022-10-04 12:58:00 65.772 kg [facility] BMI 2022-10-04 12:58:00 29.29 kg/m2 [facility] Systolic blood 2022-10-04 16:30:00 143 mm[Hg] Un[facility] sity of pressure [facility] Diastolic blood 2022-10-04 16:30:00 74 mm[Hg] Unive rsity of pressure [facility] Heart rate 2022-10-04 16:30:00 85 /min [facility] Respiratory rate 2022-10-04 16:30:00 17 /min [facility] Oxygen saturation in 2022-10-04 16:30:00 97 /min [facility] blood by [facility] Pulse oximetry Branch Body height 2022-10-04 12:58:00 149.9 cm [facility] Body weight 2022-10-04 12:58:00 65.772 kg [facility] BMI 2022-10-04 12:58:00 29.29 kg/m2 [facility] Systolic blood 2022-09-14 14:55:00 113 mm[Hg] [facility] sity of pressure [facility] Diastolic blood 2022-09-14 14:55:00 66 mm[Hg] Unive rsity of pressure [facility] Heart rate 2022-09-14 14:55:00 86 /min [facility] Body temperature 2022-09-14 14:55:00 36.89 Veronica [facility] Body height 2022-09-14 14:55:00 149.9 cm [facility] Body weight 2022-09-14 14:55:00 65.363 kg [facility] BMI 2022-09-14 14:55:00 29.10 kg/m2 [facility] Oxygen saturation in 2022-09-14 14:55:00 98 /min [facility] [place] [facility] Systolic blood 2022-08-13 13:56:00 123 mm[Hg] Univer sity of pressure [facility] Diastolic blood 2022-08-13 13:56:00 67 mm[Hg] Unive rsity of pressure [facility] Heart rate 2022-08-13 13:56:00 69 /min [facility] Respiratory rate 2022-08-13 13:56:00 19 /min [facility] Body height 2022-08-13 13:56:00 149.9 cm [facility] Body weight 2022-08-13 13:56:00 63.05 kg [facility] BMI 2022-08-13 13:56:00 28.07 kg/m2 [facility] Oxygen saturation in 2022-08-13 13:56:00 98 /min [facility] [place] [facility] Systolic blood 2022-07-22 14:28:00 137 mm[Hg] Univer sity of pressure [facility] Diastolic blood 2022-07-22 14:28:00 70 mm[Hg] Unive rsity of pressure [facility] Heart rate 2022-07-22 14:28:00 60 /min [facility] Respiratory rate 2022-07-22 14:28:00 19 /min [facility] Body height 2022-07-22 14:28:00 149.9 cm [facility] Body weight 2022-07-22 14:28:00 62.279 kg [facility] BMI 2022-07-22 14:28:00 27.73 kg/m2 [facility] Oxygen saturation in 2022-07-22 14:28:00 96 /min [facility] [place] [facility] Systolic blood 2022-02-10 07:25:00 105 mm[Hg] Univer sity of pressure [facility] Diastolic blood 2022-02-10 07:25:00 53 mm[Hg] Unive rsity of pressure [facility] Heart rate 2022-02-10 07:25:00 112 /min [facility] Respiratory rate 2022-02-10 07:25:00 18 /min [facility] Oxygen saturation in 2022-02-10 07:25:00 96 /min [facility] [place] [facility] P[facility] Body temperature 2022-02-10 03:32:00 36.89 Veronica [facility] Body height 2022-02-10 03:32:00 149.9 cm [facility] Body weight 2022-02-10 03:32:00 53.978 kg [facility] BMI 2022-02-10 03:32:00 24.04 kg/m2 [facility] Systolic blood 2022-01-25 13:27:00 134 mm[Hg] Univer sity of pressure [facility] Diastolic blood 2022-01-25 13:27:00 78 mm[Hg] Unive rsity of pressure [facility] Heart rate 2022-01-25 13:27:00 98 /min [facility] Body temperature 2022-01-25 13:27:00 36.56 Veronica [facility] Respiratory rate 2022-01-25 13:27:00 19 /min [facility] Body height 2022-01-25 13:27:00 149.9 cm [facility] Body weight 2022-01-25 13:27:00 53.706 kg [facility] BMI 2022-01-25 13:27:00 23.91 kg/m2 [facility] Oxygen saturation in 2022-01-25 13:27:00 97 /min [facility] blood by [facility] Pulse oximetry Branch BP Systolic 2022-10-09 14:18:00 138 mm[Hg] BP Diastolic 2022-10-09 14:18:00 81 mm[Hg] Weight Measured 2022-10-09 14:18:00 147.00 pounds Height Measured 2022-10-09 14:18:00 59.00 inches Body Temperature 2022-10-09 14:18:00 99.20 degrees Heart Rate 2022-10-09 14:18:00 90.00 /min Respiratory Rate 2022-10-09 14:18:00 17.00 /min BP Systolic 2022-05-12 16:44:00 128 mm[Hg] BP Diastolic 2022-05-12 16:44:00 65 mm[Hg] Weight Measured 2022-05-12 16:44:00 130.60 pounds Height Measured 2022-05-12 16:44:00 59.00 inches Body Temperature 2022-05-12 16:44:00 98.60 degrees Heart Rate 2022-05-12 16:44:00 85.00 /min Respiratory Rate 2022-05-12 16:44:00 BP Systolic 2022-05-06 14:47:00 120 mm[Hg] BP Diastolic 2022-05-06 14:47:00 63 mm[Hg] Weight Measured 2022-05-06 14:47:00 130.60 pounds Height Measured 2022-05-06 14:47:00 59.00 inches Body Temperature 2022-05-06 14:47:00 98.30 degrees Heart Rate 2022-05-06 14:47:00 89.00 /min Respiratory Rate 2022-05-06 14:47:00 BP Systolic 2021-12-17 19:00:00 BP Diastolic 2021-12-17 19:00:00 Weight Measured 2021-12-17 19:00:00 125.00 pounds Height Measured 2021-12-17 19:00:00 59.00 inches Body Temperature 2021-12-17 19:00:00 Heart Rate 2021-12-17 19:00:00 Respiratory Rate 2021-12-17 19:00:00 BP Systolic 2021-11-05 14:00:00 122 mm[Hg] BP Diastolic 2021-11-05 14:00:00 74 mm[Hg] Weight Measured 2021-11-05 14:00:00 125.40 pounds Height Measured 2021-11-05 14:00:00 59.00 inches Body Temperature 2021-11-05 14:00:00 98.40 degrees Heart Rate 2021-11-05 14:00:00 96.00 /min Respiratory Rate 2021-11-05 14:00:00 BP Systolic 2021-10-22 11:31:00 125.4 mm[Hg] BP Diastolic 2021-10-22 11:31:00 74 mm[Hg] Weight Measured 2021-10-22 11:31:00 125.40 pounds Height Measured 2021-10-22 11:31:00 59.00 inches Body Temperature 2021-10-22 11:31:00 97.80 degrees Heart Rate 2021-10-22 11:31:00 83.00 /min Respiratory Rate 2021-10-22 11:31:00 17.00 /min BP Systolic 2021-09-23 10:18:00 156 mm[Hg] BP Diastolic 2021-09-23 10:18:00 83 mm[Hg] Weight Measured 2021-09-23 10:18:00 133.00 pounds Height Measured 2021-09-23 10:18:00 59.00 inches Body Temperature 2021-09-23 10:18:00 Heart Rate 2021-09-23 10:18:00 106.00 /min Respiratory Rate 2021-09-23 10:18:00 17.00 /min BP Systolic 2021-07-16 09:45:00 164 mm[Hg] BP Diastolic 2021-07-16 09:45:00 78 mm[Hg] Weight Measured 2021-07-16 09:45:00 145.00 pounds Height Measured 2021-07-16 09:45:00 59.00 inches Body Temperature 2021-07-16 09:45:00 98.20 degrees Heart Rate 2021-07-16 09:45:00 94.00 /min Respiratory Rate 2021-07-16 09:45:00 BP Systolic 2021-03-31 08:08:00 BP Diastolic 2021-03-31 08:08:00 Weight Measured 2021-03-31 08:08:00 160.00 pounds Height Measured 2021-03-31 08:08:00 59.00 inches Body Temperature 2021-03-31 08:08:00 Heart Rate 2021-03-31 08:08:00 Respiratory Rate 2021-03-31 08:08:00 BP Systolic 2021-02-10 15:25:00 109 mm[Hg] BP Diastolic 2021-02-10 15:25:00 67 mm[Hg] Weight Measured 2021-02-10 15:25:00 166.40 pounds Height Measured 2021-02-10 15:25:00 59.00 inches Body Temperature 2021-02-10 15:25:00 98.20 degrees Heart Rate 2021-02-10 15:25:00 94.00 /min Respiratory Rate 2021-02-10 15:25:00 17.00 /min BP Systolic 2021-01-30 14:11:00 128 mm[Hg] BP Diastolic 2021-01-30 14:11:00 76 mm[Hg] Weight Measured 2021-01-30 14:11:00 167.20 pounds Height Measured 2021-01-30 14:11:00 59.00 inches Body Temperature 2021-01-30 14:11:00 98.40 degrees Heart Rate 2021-01-30 14:11:00 103.00 /min Respiratory Rate 2021-01-30 14:11:00 18.00 /min BP Systolic 2021-01-19 17:02:00 127 mm[Hg] BP Diastolic 2021-01-19 17:02:00 80 mm[Hg] Weight Measured 2021-01-19 17:02:00 173.40 pounds Height Measured 2021-01-19 17:02:00 59.00 inches Body Temperature 2021-01-19 17:02:00 98.60 degrees Heart Rate 2021-01-19 17:02:00 90.00 /min Respiratory Rate 2021-01-19 17:02:00 17.00 /min Procedures Procedure Date / Time Performing Clinician Source Performed [facility] PATIENT FINANCIAL 2023-02-28 18:08:21 [facility] SLEEP STUDY DATA REPORT 2022-11-25 06:01:00 [facility] RESULTS 2022-11-25 06:01:00 Saba Mora [facility] CARDIAC CATHETERIZATION 2022-10-04 14:21:00 Priya Orellana [facility] CARDIAC CATHETERIZATION 2022-10-04 14:21:00 Priya Orellana. [facility] CARDIAC CATHETERIZATION 2022-10-04 14:21:00 Priya Orellana. [facility] CARDIAC CATHETERIZATION 2022-10-04 14:21:00 Priya Orellana. [facility] CARDIAC CATHETERIZATION 2022-10-04 14:21:00 Priya Orellana. [facility] CARDIAC CATHETERIZATION 2022-10-04 14:21:00 OrellanaPriya enamorado. [facility] CARDIAC CATHETERIZATION 2022-10-04 14:21:00 Priya Orellana. [facility] CARDIAC CATHETERIZATION 2022-10-04 14:21:00 Priya Orellana. [facility] CATH PROCEDURE LOG 2022-10-04 13:52:[address] [facility] 2022-10-04 13:52:57 Priya OrellanaHNick [facility] OUTPATIENT CARDIAC 2022-10-04 06:01:00 Doctor Unassigned, [facility] CATHETERIZATION DOCUMENTS [facility] PULMONARY FUNCTION TEST 2022-08-06 13:12:39 [facility] (RESULTS) Medical Branch FLU VACC ([id number]), 6 2022-07-22 14:32:13 [facility] MO-66 YRS, .5ML, IM, QUAD Medica l Branch (FLUCELVAX) ASSIGNMENT OF BENEFITS 2022-07-22 14:09:37 Doctor Unassigned, [facility] [place] [facility] NUCLEAR STRESS TEST 2022-04-20 16:10:00 Reyna, Sendil [facility] CARDIOLOGY (DO NOT SCHED) Medica l Branch NUCLEAR STRESS TEST 2022-04-20 16:10:00 Orellana, Sendil [facility] CARDIOLOGY (DO NOT SCHED) Medica l Branch NUCLEAR STRESS TEST 2022-04-20 16:10:00 Orellana, Sendil [facility] CARDIOLOGY (DO NOT SCHED) Medic l Branch NUCLEAR STRESS TEST 2022-04-20 16:10:00 Priya Orellana [facility] CARDIOLOGY (DO NOT SCHED) Medica l Branch CT ABDOMEN PELVIS WO 2022-02-10 05:22:[address] [facility] CONTRAST Medical Branch LIPASE 2022-02-10 03:51:00 Kumar Valencia [facility] COMP. METABOLIC PANEL 2022-02-10 03:51:00 Kumar Valencia [facility] ([id number]) [facility] CBC WITH DIFF 2022-02-10 03:51:00 Kumar Valencia [facility] URINALYSIS 2022-02-10 03:51:00 Kumar Valencia [facility] CONSENT/REFUSAL FOR 2022-02-10 03:23:55 Doctor Unassigned, [facility] DIAGNOSIS AND TREATMENT [facility] NM RENAL FLOW FUNCTION 2022-02-03 18:14:00 Nilton Gracia [facility] WITH PHARMACOLOGICAL Medical [facility] INTERVENTION POCT URINALYSIS AUTO 2022-01-25 13:28:00 Nilton Gracia [facility] DISCLOSURE AND CONSENT, 2022-01-25 05:01:00 Doctor Unassigned, U [facility] MEDICAL AND SURGICAL [place] [facility] PROCEDURES Plan of Care Planned Activity Planned Date Details Comments Source Goal Plan of Care Note [code = 41479-4] Goal Plan of Care Note [code = 03949-2] Goal Plan of Care Note [code = 69582-4] Goal Plan of Care Note [code = 99675-3] Goal Plan of Care Note [code = 76660-5] Goal Plan of Care Note [code = 33144-3] Goal Plan of Care Note [code = 57929-3] Goal Plan of Care Note [code = 31856-1] Goal Plan of Care Note [code = 29552-3] Goal Plan of Care Note [code = 67515-8] Goal Plan of Care Note [code = 75691-9] Goal Plan of Care Note [code = 55132-9] Goal Plan of Care Note [code = 74900-3] Goal Plan of Care Note [code = 39488-0] Goal Plan of Care Note [code = 38549-3] Goal Plan of Care Note [code = 55812-4] Goal Plan of Care Note [code = 22230-6] Goal Plan of Care Note [code = 28928-6] Goal Plan of Care Note [code = 68947-1] Goal Plan of Care Note [code = 28658-8] Goal Plan of Care Note [code = 13685-0] Goal Plan of Care Note [code = 90211-9] Goal Plan of Care Note [code = 25606-5] Goal Plan of Care Note [code = 51711-0] Goal Plan of Care Note [code = 15344-0] Goal Plan of Care Note [code = 93259-0] Goal Plan of Care Note [code = 00682-1] Goal Plan of Care Note [code = 72220-5] Goal Plan of Care Note [code = 51042-7] Goal Plan of Care Note [code = 12917-6] Goal Plan of Care Note [code = 85893-4] Goal Plan of Care Note [code = 74470-9] Goal Plan of Care Note [code = 86705-1] Goal Plan of Care Note [code = 79131-2] Goal Plan of Care Note [code = 47217-6] Goal Plan of Care Note [code = 92165-0] Goal Plan of Care Note [code = 63030-1] Goal Plan of Care Note [code = 89489-6] Goal Plan of Care Note [code = 20443-5] Goal Plan of Care Note [code = 19306-6] Goal Plan of Care Note [code = 70062-6] Goal Plan of Care Note [code = 88568-9] Goal Plan of Care Note [code = 83705-0] Goal Plan of Care Note [code = 73539-4] Goal Plan of Care Note [code = 19089-7] Goal Plan of Care Note [code = 66433-6] Goal Plan of Care Note [code = 25380-7] Goal Plan of Care Note [code = 07313-0] Goal Plan of Care Note [code = 72776-2] Goal Plan of Care Note [code = 22269-2] Goal Plan of Care Note [code = 66961-5] Goal Plan of Care Note [code = 98038-1] Goal Plan of Care Note [code = 44879-3] Goal Plan of Care Note [code = 74792-9] Goal Plan of Care Note [code = 79564-4] Goal Plan of Care Note [code = 02378-2] Goal Plan of Care Note [code = 43324-2] Goal Plan of Care Note [code = 69938-9] Goal Plan of Care Note [code = 08177-3] Goal Plan of Care Note [code = 51334-5] Goal Plan of Care Note [code = 59894-4] Goal Plan of Care Note [code = 94104-1] Goal Plan of Care Note [code = 31176-7] Goal Plan of Care Note [code = 73992-2] Goal Plan of Care Note [code = 81984-3] Goal Plan of Care Note [code = 88939-2] Goal Plan of Care Note [code = 94447-0] Goal Plan of Care Note [code = 83107-5] Goal Plan of Care Note [code = 22833-8] Goal Plan of Care Note [code = 31891-8] Goal Plan of Care Note [code = 98242-9] Goal Plan of Care Note [code = 93702-6] Goal Plan of Care Note [code = 87548-9] Goal Plan of Care Note [code = 01492-7] Goal Plan of Care Note [code = 11236-3] Goal Plan of Care Note [code = 42020-8] Goal Plan of Care Note [code = 69467-7] Goal Plan of Care Note [code = 78861-9] Goal Plan of Care Note [code = 59176-3] Goal Plan of Care Note [code = 91852-0] Goal Plan of Care Note [code = 82096-8] Goal Plan of Care Note [code = 30686-7] Goal Plan of Care Note [code = 51886-5] Goal Plan of Care Note [code = 30646-7] Goal Plan of Care Note [code = 72162-8] Goal Plan of Care Note [code = 87283-5] Goal Plan of Care Note [code = 95101-8] Goal Plan of Care Note [code = 65210-5] Goal Plan of Care Note [code = 71197-0] Goal Plan of Care Note [code = 00077-4] Goal Plan of Care Note [code = 77312-9] Goal Plan of Care Note [code = 19239-0] Goal Plan of Care Note [code = 10477-2] Goal Plan of Care Note [code = 00905-2] Goal Plan of Care Note [code = 37612-7] Goal Plan of Care Note [code = 66564-3] Goal Plan of Care Note [code = 38453-5] Goal Plan of Care Note [code = 47871-8] Goal Plan of Care Note [code = 58234-3] Goal Plan of Care Note [code = 21931-1] Goal Plan of Care Note [code = 05913-8] Goal Plan of Care Note [code = 22422-2] Goal Plan of Care Note [code = 21216-8] Goal Plan of Care Note [code = 01492-7] Goal Plan of Care Note [code = 88070-6] Goal Plan of Care Note [code = 56141-4] Goal Plan of Care Note [code = 87588-6] Goal Plan of Care Note [code = 02707-8] Goal Plan of Care Note [code = 93653-2] Goal Plan of Care Note [code = 94500-2] Goal Plan of Care Note [code = 70958-3] Goal Plan of Care Note [code = 41776-9] Goal Plan of Care Note [code = 67054-2] Goal Plan of Care Note [code = 24312-4] Goal Plan of Care Note [code = 86116-3] Goal Plan of Care Note [code = 60846-7] Goal Plan of Care Note [code = 71717-9] Goal Plan of Care Note [code = 08844-0] Goal Plan of Care Note [code = 01780-0] Goal Plan of Care Note [code = 81321-2] Goal Plan of Care Note [code = 73814-4] Goal Plan of Care Note [code = 58524-7] Goal Plan of Care Note [code = 09673-3] Goal Plan of Care Note [code = 15903-7] Goal Plan of Care Note [code = 49788-0] Goal Plan of Care Note [code = 51266-3] Goal Plan of Care Note [code = 89318-1] Goal Plan of Care Note [code = 54155-8] Goal Plan of Care Note [code = 95342-9] Goal Plan of Care Note [code = 81131-9] Goal Plan of Care Note [code = 73859-7] Goal Plan of Care Note [code = 20250-8] Goal Plan of Care Note [code = 17489-2] Goal Plan of Care Note [code = 73281-6] Goal Plan of Care Note [code = 59130-7] Goal Plan of Care Note [code = 33886-5] Goal Plan of Care Note [code = 50229-6] Goal Plan of Care Note [code = 19750-5] Goal Plan of Care Note [code = 31378-3] Goal Plan of Care Note [code = 81717-2] Goal Plan of Care Note [code = 43579-2] Goal Plan of Care Note [code = 39734-9] Goal Plan of Care Note [code = 36525-5] Goal Plan of Care Note [code = 14862-4] Goal Plan of Care Note [code = 77225-9] Goal Plan of Care Note [code = 44706-8] Goal Plan of Care Note [code = 36650-5] Goal Plan of Care Note [code = 19079-1] Goal Plan of Care Note [code = 74372-0] Goal Plan of Care Note [code = 58498-7] Goal Plan of Care Note [code = 54500-5] Goal Plan of Care Note [code = 46465-6] Goal Plan of Care Note [code = 42219-4] Goal Plan of Care Note [code = 83444-2] Goal Plan of Care Note [code = 09135-9] Goal Plan of Care Note [code = 95221-0] Goal Plan of Care Note [code = 02647-8] Goal Plan of Care Note [code = 01406-9] Goal Plan of Care Note [code = 16090-1] Goal Plan of Care Note [code = 59544-0] Goal Plan of Care Note [code = 74211-7] Goal Plan of Care Note [code = 30540-9] Goal Plan of Care Note [code = 61900-3] Goal Plan of Care Note [code = 82669-0] Goal Plan of Care Note [code = 04336-1] Goal Plan of Care Note [code = 64853-7] Goal Plan of Care Note [code = 73851-1] Goal Plan of Care Note [code = 93720-8] Goal Plan of Care Note [code = 21204-3] Goal Plan of Care Note [code = 27722-2] Goal Plan of Care Note [code = 67684-8] Goal Plan of Care Note [code = 51931-7] Encounters Start End Encounter Admission Attending Care Care Encounter Source Date/Time Date/Time Type Type Clinicians Facility Department ID 2023-08-31 2023-08-31 Outpatient R [facility] [id number] Univers 14:00:00 14:00:00 SENDIL ity of [facility] 2023-05-26 2023-05-26 Refill Reyna [facility] 1.2.840.114 [id number] Univers 00:00:00 00:00:00 Sendil Ekta VILLARREAL 350.1.13.10 [place] [id number] Dc christina SOMERS 059 [facility] 2023-03-29 2023-03-29 Patient Doctor [facility] 1.2.840.114 [id number] Univers 00:00:00 00:00:00 Secure Msg UnassPHIL short 350.1.13.10 [place] [phone] Dc dical NAL 085 [facility] 2023-03-21 2023-03-21 Telephone Live [facility] 1.2.004.466 [id number] Univers 00:00:00 00:00:00 Saba VILLARREAL 350.1.13.10 [place] [id number] Dc dical NAL [address] [place] [address] 2023-03-03 2023-03-03 Outpatient R [facility] 10 [id number] Univers 10:00:00 10:00:00 SABA MORA i ty of [facility] 2023-03-02 2023-03-02 Telephone Reyna [facility] 1.2.987.144 [id number] Univers 00:00:00 00:00:00 [facility]il [facility] [place] 350.1.13.10 [facility] 4.2.[place] [phone] Dc dical NAL 059 [facility] 2023-03-01 2023-03-01 Telephone Reyna [facility] 1.2.044.537 [id number] Univers 00:00:00 00:00:00 Priya VILLARREAL 350.1.13.10 [facility] 4.[place] [phone] Dc dical NAL 059 [facility] 2023-02-28 2023-02-28 Operating Manager 2, Adc Lab [facility] 1.2.840.114 [id number] Univers 15:00:00 15:15:00 Visit Priya Orellana 350.1.13. 10 it[facility] 4.2.[place].2.[place] [phone] [facility] 353 [facility] 2023-02-28 2023-02-28 [facility] [id number] Univers 14:00:00 14:47:05 [facility]28 2023-02-28 Office [facility] 1.2.840.114 [id number] Univers 14:00:00 14:47:05 Visit Priya VILLARREAL 350.1.13.10 it[facility] 4.2.[place].2.[place] [id number] [place]c [place] 646959 [facility] 2023-02-28 2023-02-28 Orders Doctor LYNSEY 1.2.840.114 [id number] Univers 00:00:00 00:00:00 Only Unassigned, JORGE 350.1.13.10 [place] [facility] 4.2.7.2.686 Stew as [id number] [address] 2023-02-16 2023-02-16 Outpatient R [facility] [id number] Univers 20:00:00 20:00:00 AR DIEGO ity [facility] 2022-12-29 2022-12-29 Outpatient [facility] [id number] Manas 15:52:32 15:52:32 0308 F Rohit 2022-12-20 2022-12-20 Telephone Live MSZIA 1.2.304.847 [id number] Univers 00:00:00 00:00:00 Shiwan [place] 350.1.13.10 i ty of [place] [phone] Dc dicva NAL [address] [place] [address] 2022-12-10 2022-12-10 [facility]phone [facility] 1.2.435.146 [id number] Univers 00:00:00 00:00:00 Shiwan [place] 350.1.13.10 i [place] 4[place]2.7.[place] [id number] Dc dical NAL [address] [place] [address] 2022-12-08 2022-12-08 Outpatient [facility] [id number] Manas 16:12:41 16:12:41 0215 F Brooks 2022-11-25 2022-11-25 Operating Manager Clement Mendez Sleep [facility] 1.2 .840.114 [id number] Univers 14:00:00 14:15:00 Visit Ar Diego 350.1.13. 10 ity [facility] 4.2.7.2.[place] [phone] [facility] [address] Branch 2022-11-25 2022-11-25 Outpatient R [facility] [id number] Univers 14:00:00 14:00:00 AR DIEGO itthao [facility] 2022-11-25 2022-11-25 Orders Doctor MENON 1.2.840.114 [id number] Univers 00:00:00 00:00:00 Only Unassigned, JORGE 350.1.13.10 [place] [facility] 4.2.7.2.686 Stew as [phone] [facility] 009 Branch 2022-11-16 2022-11-16 Office Live [facility] 1.2.840.114 [id number] Univers 10:00:00 10:25:38 Visit Saba VILLARREAL 350.1.13.10 i ty [facility] 4.2.7.2.[place] [id number] Dc dical NAL 085 [facility] 2022-11-16 2022-11-16 Outpatient R [facility] 10 [id number] Univers 10:00:00 10:25:38 SABA MORA i ty of [facility] 2022-11-12 2022-11-12 [facility] 1.2.789.078 [id number] Univers 00:00:00 00:00:00 Priya VILLARREAL 350.1.13.10 ity of [place] 4[place] [phone] Dc dicva YONIS 059 [facility] 2022-11-11 2022-11-11 Telephone [facility] 1.2.158.216 [id number] Univers 00:00:00 00:00:00 Priya VILLARREAL 350.1.13.10 ity of [place] 4.[place].2.[place] [phone] Dc dicva YONIS 059 [facility] 2022-11-10 2022-11-10 Operating Manager 2, Adc Lab [facility] 1.2.840.114 [id number] Univers 14:15:00 14:30:00 Visit Priya Orellana 350.1.13. 10 ity [facility] 4.2.7.2.[place] [phone] Dc dicva YONIS 353 [facility] 2022-11-10 2022-11-10 Outpatient R [facility] [id number] Univers 14:15:00 14:15:00 SENDEWELINA nazario [facility] 2022-11-02 2022-11-02 Outpatient R [facility] [id number] Univers 20:00:00 20:00:00 AR DIEGO [facility] 2022-10-27 2022-10-27 Telephone [facility] 1.2.413.635 [id number] Univers 00:00:00 00:00:00 rPiya VILLARREAL 350.1.13.10 ity [facility] 4.2.7.2.[place] [phone] Dc dical NAL [address] [place] [address] 2022-10-26 2022-10-26 Outpatient [facility] [id number] Univers 15:30:00 16:15:35 SENDIL [facility] 2022-10-26 2022-10-26 Office [facility] 1.2.840.114 [id number] Univers 15:30:00 16:15:35 Visit Priya VILLARREAL 350.1.13.10 it[place] of [place] 4[place] [id number] [address] 2022-10-19 2022-10-19 Outpatient R [facility] [id number] Univers 20:00:00 20:00:00 AR DIEGO [facility] 2022-10-09 2022-10-09 Outpatient [facility] [id number] Manas 14:14:32 14:14:32 1217 F Rohit 2022-10-09 2022-10-09 Outpatient [id number]- [id number] s7e467-r 00:00:00 00:00:00 Visit dh82-7d3r r31-0z0w-k -r76c-3up 47f-3bx809 755aku7h2 cff3f4 2022-10-08 2022-10-08 Outpatient k3j78ses- [id number] a8 m57lwy-4 00:00:00 00:00:00 Visit 9fea-4870 fea-4870-9 -95dd-bdd 5dd-bdd87e 27r0qo0j8 7af4b3 2022-10-05 2022-10-05 Telephone [facility] 12.777.813 [id number] Univers 00:00:00 00:00:00 Pirya VILLARREAL 350.1.13.10 ity [facility] 4.2.7.2.[place] [phone] Me dical NAL 059 Branch [facility] 2022-10-04 2022-10-04 Outpatient R [facility] [id number] Univers 06:35:00 11:00:00 RADHA ity of [facility] 2022-10-04 2022-10-04 Hospital [facility] 1.2.840.114 [id number] Univers 06:35:00 11:00:00 Encounter [facility] 350.1.13.10 ity of [place] [id number] [address] ([facility]) 2022-10-04 2022-10-04 Surgery [facility] 1.2.840.114 [id number] Univers 07:30:00 10:30:00 [facility] 350.1.13.10 it y of [place] [id number] [address] ([facility]) 2022-10-04 2022-10-04 Orders Doctor LYNSEY 1.2.840.114 [id number] Univers 00:00:00 00:00:00 Only Unassigned, JORGE 350.1.13.10 [place] [facility] 4.2.7.2.686 Stew as [phone] [place] [address] Branch 2022-09-30 2022-09-30 Operating Manager 2, Adc Lab [facility] 1.2.840.114 [id number] Univers 13:00:00 13:15:00 Visit Priya Orellana 350.1.13. 10 ity [facility] 4.2.7.2.[place] [id number] Dc dical NAL 353 Branch [facility] 2022-09-30 2022-09-30 Outpatient R [facility] [id number] Univers 13:00:00 13:00:00 SENDIL ity of [facility] 2022-09-27 2022-09-27 Telephone [facility] 1.2.763.523 [id number] Univers 00:00:00 00:00:00 Saba VILLARREAL 350.1.13.10 i ty of [place] [id number] Dc dical NAL 085 [facility] 2022-09-14 2022-09-14 Outpatient R [facility] [id number] Univers 09:00:00 09:28:50 SENDIL ity of [facility] 2022-09-14 2022-09-14 Office Reyna [facility] 1.2.840.114 [id number] Univers 09:00:00 09:28:50 Visit Sendok NoahNick VILLARREAL 350.1.13.10 it[place] of [place] [id number] Dc dical NAL 059 [facility] 2022-08-13 2022-08-13 Outpatient R [facility] 10 [id number] Univers 09:00:00 09:42:40 SABA MORA i ty of [facility] 2022-08-13 2022-08-13 Office [facility] 1.2.840.114 [id number] Univers 09:00:00 09:42:40 Visit Saba VILLARREAL 350.1.13.10 i ty [place].2.[place] [id number] Dc dical NAL 085 [facility] 2022-08-06 2022-08-06 Operating Manager Testing, [facility] Pulmonary Func tion [facility] 1.2.840.114 [id number] Univers 08:00:00 09:30:00 Visit Saba Mora [facility] 350.1.13.10 ity of [facility] 4.2.7.2.[place] [id number] [facility] 083 [place] 2022-08-06 2022-08-06 Outpatient R [facility]ABA [facility] 10 [id number] Univers 08:00:00 08:00:00 SABA MORA i ty of [facility] 2022-08-06 2022-08-06 Orders AGUEDA Mora 1.2.568.666 [id number] Univers 00:00:00 00:00:00 Only Saba [facility] 350.1.13.10 i ty of [facility] 4.2.7.2.[place] [id number] [facility] 084 Elizabeth 2022-07-22 2022-07-22 Operating Manager 2, Adc Lab [facility] 1.2.840.114 [id number] Univers 10:15:00 10:30:00 Visit Live Saba VILLARREAL 350.1.13.10 [place] of [place] 4[place] [id number] Me dical NAL 353 [facility] 2022-07-22 2022-07-22 Outpatient R [facility]ABA [facility] 10 [id number] Univers 10:15:00 10:27:44 SABA MORA i ty [facility] 2022-07-22 2022-07-22 Office [facility] 1.2.840.114 [id number] Univers 09:30:00 10:03:23 Visit Saba VILLARREAL 350.1.13.10 i ty [place] 4[place].2.[place] 492.5216912 Me dical NAL 085 [facility] 2022-07-22 2022-07-22 Orders Doctor LYNSEY 1.2.840.114 [id number] Univers 00:00:00 00:00:00 Only Unassigned, JORGE 350.1.13.10 [place] [facility] 4.2.7.2.686 Stew as [id number] [facility] 009 [place] 2022-06-04 2022-06-04 Outpatient R [facility] 10 [id number] Univers 09:00:00 09:00:00 SABA MORA i ty [facility] 2022-05-12 2022-05-12 Outpatient [id number]- [id number] 1a 686fm6-6 00:00:00 00:00:00 Visit 8zn0-4ce4 bc6-4ff8-8 -8503-fec 503-fecbf4 cu7awt377 trd618 2022-05-07 2022-05-07 Telephone Reyna [place] 1.2.518.306 [id number] Univers 00:00:00 00:00:00 Sendewelina Ekta PHIL 350.1.13.10 ity of [place] [phone] Dc dical NAL 9 [facility] 2022-05-06 2022-05-06 Outpatient 727o4t3n- [id number] 6m6q9x-9 00:00:00 00:00:00 Visit 6266-4bd9 266-4bd9-9 -980f-b19 80f-b19f71 y9153g593 77u440 2022-04-29 2022-04-29 [facility] 1.2.313.[address] [place] [address] 00:00:00 00:00:00 Priya NoahNick VILLARREAL 350.1.13.10 ity of [place] [id number] [address] 2022-04-20 2022-04-20 [facility] 1.2.840.114 [id number] Univers 08:48:12 23:59:00 Encounter Priya LealKerryNick VILL[place] 350.1.13.10 it[place] of [place].2.[place] [id number] [address] 2022-04-20 2022-04-20 [facility] 1.2.840.114 [id number] Univers 08:47:58 08:47:58 Encounter Priya LealKerryNick [place] 350.1.13.10 it[place] of [place] [id number] [address] 2022-04-20 2022-04-20 [facility] 1.2.840.114 [id number] Univers 08:47:34 08:47:34 Encounter Priya LealKerryNick VILLARREAL 350.1.13.10 [place] [id number] [address] 2022-04-20 2022-04-20 Outpatient R [facility] [id number] Univers 08:47:20 08:47:20 [facility]-20 2022-04-20 [facility] 1.2.840.114 [id number] Univers 08:47:20 08:47:20 Encounter Priya VILLARREAL 350.1.13.10 [place] [phone] [facility] [address] 2022-03-11 2022-03-11 [facility] [id number] Univers 15:01:42 23:59:00 [facility] 2022-03-10 2022-03-10 Laboratory Only, Adc Test [facility] 1.2.840. 114 [id number] Univers 13:00:00 13:15:00 Only Marita [place] 350.1.13.10 [place] [id number] [facility] [address] 2022-03-10 2022-03-10 Outpatient R [facility] [id number] Univers 13:00:00 13:00:00 MARITA [facility] 2022-02-18 2022-02-18 [facility] [id number] Univers 09:30:00 09:30:00 NILTON [facility] 2022-02-16 2022-02-16 Telephone [facility] .2.840.114 [id number] Univers 00:00:00 00:00:00 Nilton VILLARREAL 350.1.13.10 i ty of [place] 4.2.7.2.686 [facility] [id number] Dc dical [facility] [address] 2022-02-09 2022-02-10 Emergency X ANNIE [facility] ERT [id number] Univers 22:25:00 02:36:00 KUMAR [facility] 2022-02-09 2022-02-10 Emergency Annie [facility] [id number] [id number] Univers 22:25:00 02:36:00 Kumar [place] 350.1.13.10 ity of [place] 4.2.7.2.686 [facility] [id number] [facility] [address] 2022-02-03 2022-02-03 Outpatient R [facility] [id number] Univers 11:38:53 23:59:00 NILTON ity of [facility] 2022-02-03 2022-02-03 [facility] 1.2.031.968 [id number] Univers 11:38:53 23:59:00 Encounter [facility] [id number] ity of [place] 4.2.7.2.686 [facility] [id number] [facility] [address] 2022-01-25 2022-01-25 Office [facility] [id number] Univers 08:00:00 08:59:08 Visit [facility] [id number] i ty of [place] [id number] [facility] PROFESSIO [phone] Dc dical [facility] 204 [facility] 2022-01-25 2022-01-25 Outpatient R [facility] [id number] Univers 08:00:00 08:59:08 NILTON ity [facility] 2022-01-25 2022-01-25 Outpatient R [facility] [id number] Univers 08:00:00 08:00:00 NILTON ity [facility] 2022-01-25 2022-01-25 Orders Doctor MENON [id number] [id number] Univers 00:00:00 00:00:00 Only Unassigned, JORGE [id number] [place] [facility] [id number] Stew as [phone] [facility] [address] 2022-01-22 2022-01-22 Telephone [facility] 1.2.840.114 [id number] Univers 00:00:00 00:00:00 [facility] [id number] i ty of [place] [id number] [facility] [phone] Dc christina SOMERS 188 [facility] 2021-12-29 2021-12-29 [facility] 1.2.840.114 [id number] Univers 06:35:40 23:59:00 Encounter Kasey Quiroga SPECIALTY [id number] it[id number] [phone] Dc svetlanagildardo THOMAS 815 [facility] 2021-12-29 2021-12-29 Outpatient R [facility] [id number] Univers 00:00:00 23:59:00 KASEY ity o f [facility] 2021-12-29 2021-12-29 Outpatient R [facility] [id number] Univers 00:00:00 00:00:00 KASEY ity o f [facility] 2021-12-29 2021-12-29 Outpatient R [facility] [id number] Univers 00:00:00 00:00:00 KASEY ity o f [facility] 2021-12-21 2021-12-21 [facility] [id number] Univers 09:30:00 10:15:45 [facility] 2021-12-21 2021-12-21 Office [facility] 1.2.840.114 [id number] Univers 09:30:00 10:15:45 Visit Chanda Rae SPECIALTY [id number] ity of CARE [id number] [facility] [phone] Dc christina THOMAS 204 [facility] 2021-12-18 2021-12-19 Emergency E LESNICK, MHBL MHBL 7500 [facility]BL 10:02:00 06:39:00 RIC 2021-12-17 2021-12-17 [facility] [id number] Univers 13:36:33 23:59:00 [facility] 2021-12-17 2021-12-17 [facility] [id number] Univers 13:36:33 23:59:00 [facility] [id number] ity of [id number] [place] [facility] [phone] [facility] [address] ([facility]) 2021-12-17 2021-12-17 Outpatient R LIDIA [facility] [id number] Univers 13:36:33 23:59:00 NILTON ity [facility] 2021-12-14 2021-12-14 [facility] [id number] Univers 15:30:00 15:30:00 NILTON ity [facility] 2021-12-09 2021-12-09 [facility] 1.2.840.114 [id number] Univers 15:00:00 15:30:00 [facility] [id number] it y of [place] [id number] [facility] [phone] Med ical [facility] [address] 2021-12-09 2021-12-09 [facility] [id number] Univers 15:00:00 15:00:00 [facility] ity [facility] 2021-11-12 2021-11-12 Emergency X TARIQ, [facility] ERT [id number] Univers 18:32:00 20:46:00 [facility] 2021-11-12 2021-11-12 Emergency [facility] [id number] Univers 18:32:00 20:46:00 Chance VILLARREAL [id number] i ty of [place] [id number] [facility] [phone] [facility] [address] 2021-11-11 2021-11-11 Operating Manager Lab, Tyron-Rmchp [facility] 1.2.840. 114 [id number] Univers 08:00:00 08:24:57 Visit Guy Addison FUSING LINE INSPECTOR [id number] ity of REGIONAL [id number] Stew as MATERNAL [phone] Med ical & CHILD [address] [place] [address] 2021-11-11 2021-11-11 Outpatient R [facility] [id number] Univers 08:00:00 08:00:00 ity of [facility] 2021-11-11 2021-11-11 Outpatient R CYN, [facility] [id number] Univers 08:00:00 08:00:00 GUY ity o f [facility] 2021-11-05 2021-11-05 Outpatient R JUAN FRANCISCO, [facility] [id number] Univers 09:00:00 10:02:48 KASEY nazario o f [facility] 2021-11-05 2021-11-05 Office [facility] [id number] Univers 09:00:00 10:02:48 Visit Kasey Quiroga FUSING LINE INSPECTOR [id number] ity of [facility] [id number] Stew as MATERNAL [phone] Med ical & CHILD [address] [place] [address] 2021-11-05 2021-11-05 Orders Doctor LYNSEY 1.2.840.114 [id number] Univers 00:00:00 00:00:00 Only Unassigned, JORGE [id number] [place] [facility] [id number] Stew as [phone] [facility] [address] 2021-10-15 2021-10-15 Emergency X SINGER [facility] ERT [id number] Univers 07:29:00 10:51:00 CHAD nazario [facility] 2021-10-15 2021-10-15 Emergency [facility] [id number] Univers 07:29:00 10:51:00 [facility] 350.1.13.10 i ty [facility] [id number] [place] [facility] [phone] [facility] [address] 2021-10-15 2021-10-15 Outpatient R JUAN FRANCISCO, [facility] [id number] Univers 09:30:00 09:30:00 KASEY nazario o f [facility] 2021-10-06 2021-10-06 Case SUSI Clay 1.2.840.114 [id number] Univers 00:00:00 00:00:00 Management Kenisha Alex CLARK [id number] [id number] [phone] [facility] [address] 2021-09-04 2021-09-04 Telephone Wanda GOLDMAN 1.2.840.114 [id number] Univers 00:00:00 00:00:00 , Hedy HOOKY 350.1.13.10 [id number] [phone] [address] 2021-08-13 2021-08-13 Outpatient R REYAN [facility] [id number] Univers 00:00:00 00:00:00 SENDIL ity [facility] 2021-07-17 2021-07-17 Office [facility] 1.2.840.114 [id number] Univers 14:49:01 15:18:26 Visit Sendil Ekta Villarreal 350.1.13.10 ity of [place] [id number] [place] Professio [phone] Dc dical [facility]9 Branch [facility] 2021-07-17 2021-07-17 Outpatient [facility] [id number] Univers 15:00:00 15:00:00 SENDIL ity [facility] 2021-07-17 2021-07-17 Orders Doctor LYNSEY 1.2.840.114 [id number] Univers 00:00:00 00:00:00 Only Unassigned, JORGE 350.1.13.10 [place] [facility] [id number] Stew as [phone] [facility] [address] Branch 2020-10-26 2020-10-26 Urgent Mikei, Antonietta Ashin 1.2.840. 114 [id number] Univers 12:13:56 13:05:46 Care Unknown, Attending Pediatric 350.1.13. 10 ity of [place] [id number] [place] Adult [phone] [facility] Primary [address] [facility] 2020-10-26 2020-10-26 Outpatient R ANGELINE, [facility] [id number] Univers 12:15:00 12:15:00 ATTENDING [facility] Results Test Description Test Time Test Comments Results Result Comments Source PULMONARY FUNCTION TEST (RESULTS) 2022-08-06 13:12:39 Test Item Value Reference Range Interpretation Comme nts FVC Actual (test code = 3994) 2.34 L FEV1 Actual (test code = 3993) 1.82 L FEV1/FVC Actual (test code = 3995) 78 % [facility]O DIFF WITH [id number] 07:09:18 Test Item Value Reference Range Interpretation Comments WBC (test code = 6.0 K/UL 3.5-11.0 1001) RBC (test code = 3.65 M/UL 3.80-5.40 L 1002) HEMOGLOBIN (test code 9.8 G/DL 11.5-15.5 L = 1003) HEMATOCRIT (test code 29.5 % 34.0-45.0 L = 1004) MCV (test code = 80.8 fL 80.0-99.0 1005) MCH (test code = 26.8 PG 25.0-33.0 1006) MCHC (test code = 33.2 G/DL 31.0-36.0 1007) RDW (test code = 14.0 % 11.5-15.0 1038) NEUTROPHILS (test 44.4 % code = 1008) LYMPHOCYTES (test 35.7 % code = 1010) MONOCYTES (test code 17.1 % = 1011) EOSINOPHILS (test 2.2 % code = 1012) BASOPHILS (test code 0.3 % = 1013) IMMATURE GRANULOCYTES 0.3 % (test code = 1036) NUCLEATED RBCS (test 0.0 /100 WBC'S See_Comment [Aut omated code = 1065) message] The sy stem which generated this result transmitted reference range : 0.0. The refere nce range was not u sed to interpret th is result as normal/abnormal . PLATELET COUNT (test 233 K/UL 130-400 code = 1015) ABSOLUTE NEUTROPHILS 2.65 K/UL 1.50-7.50 (test code = 1066) ABSOLUTE LYMPHOCYTES 2.13 K/UL 1.00-4.00 (test code = 1067) ABSOLUTE MONOCYTES 1.02 K/UL 0.20-1.00 H (test code = 1068) ABSOLUTE EOSINOPHILS 0.13 K/UL 0.00-0.50 (test code = 1040) ABSOLUTE BASOPHILS 0.02 K/UL 0.00-0.20 (test code = 1069) ABS IMMATURE 0.02 K/UL 0.00-0.10 GRANULOCYTES (test code = 1020) ABS NUCLEATED RBCS 0.00 K/UL 0.00-0.11 (test code = 19209) VITAMIN B 12 AND FOLIC [id number] 06:06:29 Test Item Value Reference Range Interpretation Comments VITAMIN B-12 (test 578 PG/ML 200-950 code = 2840) FOLIC ACID (test >20.0 UG/L SEE BELOW INTE RPRETIVE code = 2695) RANGES DE FICIENCY . . . . . . . . . . . . . . . UG/L <4.0 POSSIBLE DEFICIENCY. . . . . . . . . . . UG/L 4. 0-5.9 SUFFICIENT . . . . . . . . . . . . . . . UG/L >=6.0 UNLESS OT HERWISE INDICATED, ALL TESTING PERFORMED [facility] [address] [place] [address] 4 LABORATORY DIRE CTOR: ADRI CARRENO M.D. CLIA NUMBER [id number] [place] [id number] 06:06:29 Test Item Value Reference Range Interpretation Comments FERRITIN (test code = 2075) 147 NG/ML 13-200 [id number] 03:36:41 Test Item Value Reference Range Interpretation Comments TRANSFERRIN (test code = 4936) 247 MG/DL 200-360 IRON BINDING CAPACITY AND IRON AND % [id number] 03:35:34 Test Item Value Reference Range Interpretation Comments IRON, SERUM (test code = 2222) 39 UG/DL 37-145 UNSATURATED IBC (test code = 04709) 261 UG/DL 112-347 CALC TOTAL IBC (test code = 2077) 300 UG/DL 250-450 CALC % IRON SAT (test code = 2079) 13 % 20-50 L CBC W/AUTO [id number] 00:00:00 Test Item Value Reference Range Interpretation Comments WBC (test code = 1001) 6.0 K/UL RBC (test code = 1002) 3.65 M/UL HEMOGLOBIN (test code = 1003) 9.8 G/DL HEMATOCRIT (test code = 1004) 29.5 % MCV (test code = 1005) 80.8 fL MCH (test code = 1006) 26.8 PG MCHC (test code = 1007) 33.2 G/DL RDW (test code = 1038) 14.0 % NEUTROPHILS (test code = 1008) 44.4 % LYMPHOCYTES (test code = 1010) 35.7 % MONOCYTES (test code = 1011) 17.1 % EOSINOPHILS (test code = 1012) 2.2 % BASOPHILS (test code = 1013) 0.3 % IMMATURE GRANULOCYTES (test 0.3 % code = 1036) NUCLEATED RBCS (test code = 0.0 /100WBC'S 1065) PLATELET COUNT (test code = 233 K/UL 1015) ABSOLUTE NEUTROPHILS (test code 2.65 K/UL = 1066) ABSOLUTE LYMPHOCYTES (test code 2.13 K/UL = 1067) ABSOLUTE MONOCYTES (test code = 1.02 K/UL 1068) ABSOLUTE EOSINOPHILS (test code 0.13 K/UL = 1040) ABSOLUTE BASOPHILS (test code = 0.02 K/UL 1069) ABS IMMATURE GRANULOCYTES (test 0.02 K/UL code = 1020) ABS NUCLEATED RBCS (test code = 0.00 K/UL 66084) CBC W/AUTO [id number] 00:00:00 Test Item Value Reference Range Interpretation Comments WBC (test code = 1001) 6.0 K/UL RBC (test code = 1002) 3.65 M/UL HEMOGLOBIN (test code = 1003) 9.8 G/DL HEMATOCRIT (test code = 1004) 29.5 % MCV (test code = 1005) 80.8 fL MCH (test code = 1006) 26.8 PG MCHC (test code = 1007) 33.2 G/DL RDW (test code = 1038) 14.0 % NEUTROPHILS (test code = 1008) 44.4 % LYMPHOCYTES (test code = 1010) 35.7 % MONOCYTES (test code = 1011) 17.1 % EOSINOPHILS (test code = 1012) 2.2 % BASOPHILS (test code = 1013) 0.3 % IMMATURE GRANULOCYTES (test 0.3 % code = 1036) NUCLEATED RBCS (test code = 0.0 /100WBC'S 1065) PLATELET COUNT (test code = 233 K/UL 1015) ABSOLUTE NEUTROPHILS (test code 2.65 K/UL = 1066) ABSOLUTE LYMPHOCYTES (test code 2.13 K/UL = 1067) ABSOLUTE MONOCYTES (test code = 1.02 K/UL 1068) ABSOLUTE EOSINOPHILS (test code 0.13 K/UL = 1040) ABSOLUTE BASOPHILS (test code = 0.02 K/UL 1069) ABS IMMATURE GRANULOCYTES (test 0.02 K/UL code = 1020) ABS NUCLEATED RBCS (test code = 0.00 K/UL 09316) IRON BINDING CAPACITY AND IRON AND % [id number] 00:00:00 Test Item Value Reference Range Interpretation Comments IRON, SERUM (test code = 2222) 39 UG/DL UNSATURATED IBC (test code = 79634) 261 UG/DL CALC TOTAL IBC (test code = 2076) 300 UG/DL CALC % IRON SAT (test code = 9) 13 % [id number] 00:00:00 Test Item Value Reference Range Interpretation Comments FERRITIN (test code = 5) 147 NG/ML [id number] 00:00:00 Test Item Value Reference Range Interpretation Comments TRANSFERRIN (test code = 4936) 247 MG/DL VITAMIN B 12 AND FOLIC [id number] 00:00:00 Test Item Value Reference Range Interpretation Comments VITAMIN B-12 (test code = 2840) 578 PG/ML FOLIC ACID (test code = 2695) >20.0 UG/L CBC W/AUTO [id number] 00:00:00 Test Item Value Reference Range Interpretation Comments WBC (test code = 1001) 6.0 K/UL RBC (test code = 1002) 3.65 M/UL HEMOGLOBIN (test code = 1003) 9.8 G/DL HEMATOCRIT (test code = 1004) 29.5 % MCV (test code = 1005) 80.8 fL MCH (test code = 1006) 26.8 PG MCHC (test code = 1007) 33.2 G/DL RDW (test code = 1038) 14.0 % NEUTROPHILS (test code = 1008) 44.4 % LYMPHOCYTES (test code = 1010) 35.7 % MONOCYTES (test code = 1011) 17.1 % EOSINOPHILS (test code = 1012) 2.2 % BASOPHILS (test code = 1013) 0.3 % IMMATURE GRANULOCYTES (test 0.3 % code = 1036) NUCLEATED RBCS (test code = 0.0 /100WBC'S 1065) PLATELET COUNT (test code = 233 K/UL 1015) ABSOLUTE NEUTROPHILS (test code 2.65 K/UL = 1066) ABSOLUTE LYMPHOCYTES (test code 2.13 K/UL = 1067) ABSOLUTE MONOCYTES (test code = 1.02 K/UL 1068) ABSOLUTE EOSINOPHILS (test code 0.13 K/UL = 1040) ABSOLUTE BASOPHILS (test code = 0.02 K/UL 1069) ABS IMMATURE GRANULOCYTES (test 0.02 K/UL code = 1020) ABS NUCLEATED RBCS (test code = 0.00 K/UL 17359) CBC W/AUTO [id number] 00:00:00 Test Item Value Reference Range Interpretation Comments WBC (test code = 1001) 6.0 K/UL RBC (test code = 1002) 3.65 M/UL HEMOGLOBIN (test code = 1003) 9.8 G/DL HEMATOCRIT (test code = 1004) 29.5 % MCV (test code = 1005) 80.8 fL MCH (test code = 1006) 26.8 PG MCHC (test code = 1007) 33.2 G/DL RDW (test code = 1038) 14.0 % NEUTROPHILS (test code = 1008) 44.4 % LYMPHOCYTES (test code = 1010) 35.7 % MONOCYTES (test code = 1011) 17.1 % EOSINOPHILS (test code = 1012) 2.2 % BASOPHILS (test code = 1013) 0.3 % IMMATURE GRANULOCYTES (test 0.3 % code = 1036) NUCLEATED RBCS (test code = 0.0 /100WBC'S 1065) PLATELET COUNT (test code = 233 K/UL 1015) ABSOLUTE NEUTROPHILS (test code 2.65 K/UL = 1066) ABSOLUTE LYMPHOCYTES (test code 2.13 K/UL = 1067) ABSOLUTE MONOCYTES (test code = 1.02 K/UL 1068) ABSOLUTE EOSINOPHILS (test code 0.13 K/UL = 1040) ABSOLUTE BASOPHILS (test code = 0.02 K/UL 1069) ABS IMMATURE GRANULOCYTES (test 0.02 K/UL code = 1020) ABS NUCLEATED RBCS (test code = 0.00 K/UL 45360) CBC W/AUTO [id number] 00:00:00 Test Item Value Reference Range Interpretation Comments WBC (test code = 1001) 6.0 K/UL RBC (test code = 1002) 3.65 M/UL HEMOGLOBIN (test code = 1003) 9.8 G/DL HEMATOCRIT (test code = 1004) 29.5 % MCV (test code = 1005) 80.8 fL MCH (test code = 1006) 26.8 PG MCHC (test code = 1007) 33.2 G/DL RDW (test code = 1038) 14.0 % NEUTROPHILS (test code = 1008) 44.4 % LYMPHOCYTES (test code = 1010) 35.7 % MONOCYTES (test code = 1011) 17.1 % EOSINOPHILS (test code = 1012) 2.2 % BASOPHILS (test code = 1013) 0.3 % IMMATURE GRANULOCYTES (test 0.3 % code = 1036) NUCLEATED RBCS (test code = 0.0 /100WBC'S 1065) PLATELET COUNT (test code = 233 K/UL 1015) ABSOLUTE NEUTROPHILS (test code 2.65 K/UL = 1066) ABSOLUTE LYMPHOCYTES (test code 2.13 K/UL = 1067) ABSOLUTE MONOCYTES (test code = 1.02 K/UL 1068) ABSOLUTE EOSINOPHILS (test code 0.13 K/UL = 1040) ABSOLUTE BASOPHILS (test code = 0.02 K/UL 1069) ABS IMMATURE GRANULOCYTES (test 0.02 K/UL code = 1020) ABS NUCLEATED RBCS (test code = 0.00 K/UL 47758) IRON BINDING CAPACITY AND IRON AND % [id number] 00:00:00 Test Item Value Reference Range Interpretation Comments IRON, SERUM (test code = 2) 39 UG/DL UNSATURATED IBC (test code = 03320) 261 UG/DL CALC TOTAL IBC (test code = 2076) 300 UG/DL CALC % IRON SAT (test code = 2078) 13 % IRON BINDING CAPACITY AND IRON AND % [id number] 00:00:00 Test Item Value Reference Range Interpretation Comments IRON, SERUM (test code = 2222) 39 UG/DL UNSATURATED IBC (test code = 24633) 261 UG/DL CALC TOTAL IBC (test code = 2076) 300 UG/DL CALC % IRON SAT (test code = 2078) 13 % [id number] 00:00:00 Test Item Value Reference Range Interpretation Comments FERRITIN (test code = 2074) 147 NG/ML [id number] 00:00:00 Test Item Value Reference Range Interpretation Comments FERRITIN (test code = 2074) 147 NG/ML [id number] 00:00:00 Test Item Value Reference Range Interpretation Comments TRANSFERRIN (test code = 4936) 247 MG/DL [id number] 00:00:00 Test Item Value Reference Range Interpretation Comments TRANSFERRIN (test code = 4936) 247 MG/DL VITAMIN B 12 AND FOLIC [id number] 00:00:00 Test Item Value Reference Range Interpretation Comments VITAMIN B-12 (test code = 2840) 578 PG/ML FOLIC ACID (test code = 2695) >20.0 UG/L VITAMIN B 12 AND FOLIC [id number] 00:00:00 Test Item Value Reference Range Interpretation Comments VITAMIN B-12 (test code = 2840) 578 PG/ML FOLIC ACID (test code = 2695) >20.0 UG/L CBC W/AUTO [id number] 00:00:00 Test Item Value Reference Range Interpretation Comments WBC (test code = 1001) 6.0 K/UL RBC (test code = 1002) 3.65 M/UL HEMOGLOBIN (test code = 1003) 9.8 G/DL HEMATOCRIT (test code = 1004) 29.5 % MCV (test code = 1005) 80.8 fL MCH (test code = 1006) 26.8 PG MCHC (test code = 1007) 33.2 G/DL RDW (test code = 1038) 14.0 % NEUTROPHILS (test code = 1008) 44.4 % LYMPHOCYTES (test code = 1010) 35.7 % MONOCYTES (test code = 1011) 17.1 % EOSINOPHILS (test code = 1012) 2.2 % BASOPHILS (test code = 1013) 0.3 % IMMATURE GRANULOCYTES (test 0.3 % code = 1036) NUCLEATED RBCS (test code = 0.0 /100WBC'S 1065) PLATELET COUNT (test code = 233 K/UL 1015) ABSOLUTE NEUTROPHILS (test code 2.65 K/UL = 1066) ABSOLUTE LYMPHOCYTES (test code 2.13 K/UL = 1067) ABSOLUTE MONOCYTES (test code = 1.02 K/UL 1068) ABSOLUTE EOSINOPHILS (test code 0.13 K/UL = 1040) ABSOLUTE BASOPHILS (test code = 0.02 K/UL 1069) ABS IMMATURE GRANULOCYTES (test 0.02 K/UL code = 1020) ABS NUCLEATED RBCS (test code = 0.00 K/UL 34471) CBC W/AUTO [id number] 00:00:00 Test Item Value Reference Range Interpretation Comments WBC (test code = 1001) 6.0 K/UL RBC (test code = 1002) 3.65 M/UL HEMOGLOBIN (test code = 1003) 9.8 G/DL HEMATOCRIT (test code = 1004) 29.5 % MCV (test code = 1005) 80.8 fL MCH (test code = 1006) 26.8 PG MCHC (test code = 1007) 33.2 G/DL RDW (test code = 1038) 14.0 % NEUTROPHILS (test code = 1008) 44.4 % LYMPHOCYTES (test code = 1010) 35.7 % MONOCYTES (test code = 1011) 17.1 % EOSINOPHILS (test code = 1012) 2.2 % BASOPHILS (test code = 1013) 0.3 % IMMATURE GRANULOCYTES (test 0.3 % code = 1036) NUCLEATED RBCS (test code = 0.0 /100WBC'S 1065) PLATELET COUNT (test code = 233 K/UL 1015) ABSOLUTE NEUTROPHILS (test code 2.65 K/UL = 1066) ABSOLUTE LYMPHOCYTES (test code 2.13 K/UL = 1067) ABSOLUTE MONOCYTES (test code = 1.02 K/UL 1068) ABSOLUTE EOSINOPHILS (test code 0.13 K/UL = 1040) ABSOLUTE BASOPHILS (test code = 0.02 K/UL 1069) ABS IMMATURE GRANULOCYTES (test 0.02 K/UL code = 1020) ABS NUCLEATED RBCS (test code = 0.00 K/UL 29850) CBC W/AUTO [id number] 00:00:00 Test Item Value Reference Range Interpretation Comments WBC (test code = 1001) 6.0 K/UL RBC (test code = 1002) 3.65 M/UL HEMOGLOBIN (test code = 1003) 9.8 G/DL HEMATOCRIT (test code = 1004) 29.5 % MCV (test code = 1005) 80.8 fL MCH (test code = 1006) 26.8 PG MCHC (test code = 1007) 33.2 G/DL RDW (test code = 1038) 14.0 % NEUTROPHILS (test code = 1008) 44.4 % LYMPHOCYTES (test code = 1010) 35.7 % MONOCYTES (test code = 1011) 17.1 % EOSINOPHILS (test code = 1012) 2.2 % BASOPHILS (test code = 1013) 0.3 % IMMATURE GRANULOCYTES (test 0.3 % code = 1036) NUCLEATED RBCS (test code = 0.0 /100WBC'S 1065) PLATELET COUNT (test code = 233 K/UL 1015) ABSOLUTE NEUTROPHILS (test code 2.65 K/UL = 1066) ABSOLUTE LYMPHOCYTES (test code 2.13 K/UL = 1067) ABSOLUTE MONOCYTES (test code = 1.02 K/UL 1068) ABSOLUTE EOSINOPHILS (test code 0.13 K/UL = 1040) ABSOLUTE BASOPHILS (test code = 0.02 K/UL 1069) ABS IMMATURE GRANULOCYTES (test 0.02 K/UL code = 1020) ABS NUCLEATED RBCS (test code = 0.00 K/UL 91023) IRON BINDING CAPACITY AND IRON AND % [id number] 00:00:00 Test Item Value Reference Range Interpretation Comments IRON, SERUM (test code = 2) 39 UG/DL UNSATURATED IBC (test code = 54657) 261 UG/DL CALC TOTAL IBC (test code = 7) 300 UG/DL CALC % IRON SAT (test code = 2078) 13 % IRON BINDING CAPACITY AND IRON AND % [id number] 00:00:00 Test Item Value Reference Range Interpretation Comments IRON, SERUM (test code = 2) 39 UG/DL UNSATURATED IBC (test code = 72468) 261 UG/DL CALC TOTAL IBC (test code = 7) 300 UG/DL CALC % IRON SAT (test code = 2078) 13 % [id number] 00:00:00 Test Item Value Reference Range Interpretation Comments FERRITIN (test code = 5) 147 NG/ML [id number] 00:00:00 Test Item Value Reference Range Interpretation Comments FERRITIN (test code = 5) 147 NG/ML [id number] 00:00:00 Test Item Value Reference Range Interpretation Comments TRANSFERRIN (test code = 4936) 247 MG/DL [id number] 00:00:00 Test Item Value Reference Range Interpretation Comments TRANSFERRIN (test code = 4936) 247 MG/DL VITAMIN B 12 AND FOLIC [id number] 00:00:00 Test Item Value Reference Range Interpretation Comments VITAMIN B-12 (test code = 2840) 578 PG/ML FOLIC ACID (test code = 2695) >20.0 UG/L VITAMIN B 12 AND FOLIC [id number] 00:00:00 Test Item Value Reference Range Interpretation Comments VITAMIN B-12 (test code = 2840) 578 PG/ML FOLIC ACID (test code = 2695) >20.0 UG/L Complete Metabolic [id number] 04:19:03 Test Item Value Reference Range Interpretation Comments NA (test code = 134 mmol/L 135-145 L [id number]) K (test code = 4.5 mmol/L 3.5-5.0 4561638890) CL (test code = 99 mmol/L 98-108 4118262952) CO2 TOTAL (test code = 22 mmol/L 23-31 L 6824720150) AGAP (test code = 2-16 7332765901) BUN (test code = 24 mg/dL 7-23 H 7248498415) GLUCOSE (test code = 95 mg/dL 70-110 6015671408) CREATININE (test code = 0.49 mg/dL 0.50-1.04 L 6339820901) TOTAL BILI (test code = 0.7 mg/dL 0.1-1.8 3291591799) CALCIUM (test code = 9.9 mg/dL 8.6-10.6 2344963127) T PROTEIN (test code = 7.4 g/dL 6.3-8.2 5018168835) ALBUMIN (test code = 4.3 g/dL 3.5-5.0 5248591483) ALK PHOS (test code = 198 U/L 34-122 H 0160239167) ALTv (test code = 25 U/L 5-35 1742-6) AST(SGOT) (test code = 35 U/L 13-40 3703108373) eGFR (test code = mL/min/1.73m2 0580065760) FADY (test code = FADY) Association of Glomerular Filtration Rate (GFR) and Staging of Kidney Disease* + --+ --+ ------+| GFR (mL/min/1.73 m2) ?| With Kidney Damage ?| ?Without Kidney Damage+ --------+ --------+ +| ?>90 ?| ?Stage one ?| ? Normal ?+ ---+ ---+ -------+| ?60-89 ?| ?Stage two ?| ? Decreased GFR ? + --+ --+ ------+| ?30-59 ?| ?Stage three ?| ? Stage three ? + --+ --+ ------+| ?15-29 ?| ?Stage four ? | ? Stage four ?+ ---+ ---+ -------+| ?<15 (or dialysis) ? ?| ?Stage five ? | ? Stage five ?+ ---+ ---+ -------+ *Each stage assumes the associated GFR level has been in effect for at least three months. ?Stages 1 to 5, with or without kidney disease, indicate chronic kidney disease. Notes: Determination of stages one and two (with eGFR >59mL/min/1.73 m2) requires estimation of kidney damage for at least three months as defined by structural or functional abnormalities of the kidney, manifested by either:Pathological abnormalities or Markers of kidney damage (including abnormalities in the composition of the blood or urine or abnormalities in imaging tests). Lab Interpretation Abnormal (test code = 68280-2) [facility] [id number] 04:18:22 Test Item Value Reference Range Interpretation Comments LIPASE (test code = 8693682146) 58 U/L 0-220 Lab Interpretation (test code = Normal 63407-3) [facility] with [id number] 04:04:03 Test Item Value Reference Range Interpretation Comments WBC (test code = See_Comment [Automated 8044-2) message] The sy stem which generated this result transmitted reference range : 4.30 - 11.10 10*3/?L. The reference range was not used to interpret this result as normal/abnormal . RBC (test code = See_Comment [Automated 201-9) message] The sy stem which generated this result transmitted reference range : 3.93 - 5.25 10*6/?L. The reference range was not used to interpret this result as normal/abnormal . HGB (test code = 10.6 g/dL 11.6-15.0 L 718-7) HCT (test code = 32.5 % 35.7-45.2 L 4544-3) MCV (test code = 82.7 fL 80.6-95.5 787-2) MCH (test code = 27.0 pg 25.9-32.8 785-6) MCHC (test code = 32.6 g/dL 31.6-35.1 786-4) RDW-SD (test code = 40.3 fL 39.0-49.9 75844-1) RDW-CV (test code = 13.2 % 12.0-15.5 788-0) PLT (test code = See_Comment [Automated 777-3) message] The sy stem which generated this result transmitted reference range : 166 - 358 10*3/ ?L. The reference r sierra was not used to interpret this result as normal/abnormal . MPV (test code = 10.3 fL 9.5-12.9 32010-7) NRBC/100 WBC (test See_Comment [Automat ed code = [id number]) message] The system which generated this result transmitted reference range : 0.0 - 10.0 /100 WBCs. The refer ence range was not u sed to interpret th is result as normal/abnormal . NRBC x10^3 (test code <0.01 See_Comment [Auto mated = [id number]) message] The s ystem which generated this result transmitted reference range : 10*3/?L. The reference range was not used to interpret this result as normal/abnormal . GRAN MAT (NEUT) % 73.6 % (test code = 770-8) IMM GRAN % (test code 0.50 % = [id number]) LYMPH % (test code = 17.2 % 736-9) MONO % (test code = 8.4 % 5905-5) EOS % (test code = 0.1 % 713-8) BASO % (test code = 0.2 % 706-2) GRAN MAT x10^3(ANC) 7.13 10*3/uL 1.88-7.09 H (test code = [id number]) IMM GRAN x10^3 (test 0.05 10*3/uL 0.00-0.06 code = 4141647628) LYMPH x10^3 (test code 1.67 10*3/uL 1.32-3.29 = 731-0) MONO x10^3 (test code 0.81 10*3/uL 0.33-0.92 = 742-7) EOS x10^3 (test code = <0.03 0.03-0.39 L 711-2) BASO x10^3 (test code <0.03 0.01-0.07 = 704-7) Lab Interpretation Abnormal (test code = 81601-7) [facility] URINALYSIS, [id number] 13:28:00 Test Item Value Reference Range Interpretation Comments POCT U SP GRAV (test code = 1.020 mg/dl 1.005-1.025 3255) POCT PH U (test code = 3254) 5.5 mg/dl 5-8 POCT U LEUK EST (test code = positive Negative - Negative 3263) POCT U NIT (test code = 3262) Negative Negative - Negative POCT U PROT (test code = Negative Negative - Negative 3259) POCT U GLU (test code = 3256) Negative Negative - Negative POCT U KETONE (test code = Negative Negative - Negative 3258) POCT U UROBILI (test code = 0.2 mg/dl 0.2-1 3260) POCT U BILI (test code = Negative Negative - Negative 3261) POCT U BLD (test code = 3257) Negative Negative - Negative POCT U COLOR (test code = yellow 3266) POCT U APPEAR (test code = clear 3267) [facility] URINALYSIS, [id number] 13:28:00 Test Item Value Reference Range Interpretation Comments POCT U SP GRAV (test code = 1.020 mg/dl 1.005-1.025 3255) POCT PH U (test code = 3254) 5.5 mg/dl 5-8 POCT U LEUK EST (test code = positive Negative - Negative 3263) POCT U NIT (test code = 3262) Negative Negative - Negative POCT U PROT (test code = Negative Negative - Negative 3259) POCT U GLU (test code = 3256) Negative Negative - Negative POCT U KETONE (test code = Negative Negative - Negative 3258) POCT U UROBILI (test code = 0.2 mg/dl 0.2-1 3260) POCT U BILI (test code = Negative Negative - Negative 3261) POCT U BLD (test code = 3257) Negative Negative - Negative POCT U COLOR (test code = yellow 3266) POCT U APPEAR (test code = clear 3267) [facility] [id number] 04:25:49 Test Item Value Reference Range Interpretation Comments GLUCOSE (test code = 92 MG/DL 70-99 2216) BUN (test code = 22 MG/DL 6-20 H 2207) CREATININE (test 0.67 MG/DL 0.60-1.30 code = 2214) eGFR (2020 CKD-EPI) 104 >60 (test code = 65344) ML/MIN/1.73 CALC BUN/CREAT (test 33 RATIO 6-28 H code = 2235) SODIUM (test code = 145 MEQ/L 203-391 2447) POTASSIUM (test code 4.8 MEQ/L 3.5-5.4 = 8) CHLORIDE (test code 104 MEQ/L 95-107 = 2215) CARBON DIOXIDE (test 30 MEQ/L 19-31 code = 2206) CALCIUM (test code = 10.4 MG/DL 8.5-10.5 2208) PROTEIN, TOTAL (test 6.9 G/DL 6.1-8.3 code = 2229) ALBUMIN (test code = 4.0 G/DL 3.5-5.2 2200) CALC GLOBULIN (test 2.9 G/DL 1.9-3.7 code = 2240) CALC A/G RATIO (test 1.4 RATIO 1.0-2.6 code = 2234) BILIRUBIN, TOTAL <0.2 MG/DL See_Comment [Automated message] (test code = 2207) The syste m which generated this result transmitted ref erence range: <=1.2. T he reference range was not used to int erpret this result as normal/abnormal . ALKALINE PHOSPHATASE 132 U/L 40-133 (test code = 2204) AST (test code = 29 U/L 9-40 2218) ALT (test code = 32 U/L 5-40 UNLESS OTH ERWISE 2219) INDICATED, ALL TESTING PERFORM ED ATCLINICAL PATH OLOGY LABORATORIES, [place]. [address] [facility] [place], [place] [address] [facility] DIRECTOR: ADRI LUIS M.D. [place] NUMBER [id number] CAP ACCREDITATION N O. [id number] CBC W/AUTO DIFF WITH [id number] 02:38:49 Test Item Value Reference Range Interpretation Comments WBC (test code = 4.7 K/UL 3.5-11.0 1001) RBC (test code = 3.17 M/UL 3.80-5.40 L 1002) HEMOGLOBIN (test code 8.3 G/DL 11.5-15.5 L = 1003) HEMATOCRIT (test code 25.8 % 34.0-45.0 L = 1004) MCV (test code = 81.4 fL 80.0-99.0 1005) MCH (test code = 26.2 PG 25.0-33.0 1006) MCHC (test code = 32.2 G/DL 31.0-36.0 1007) RDW (test code = 13.6 % 11.5-15.0 1038) NEUTROPHILS (test 43.5 % code = 1008) LYMPHOCYTES (test 38.6 % code = 1010) MONOCYTES (test code 14.8 % = 1011) EOSINOPHILS (test 2.3 % code = 1012) BASOPHILS (test code 0.4 % = 1013) IMMATURE GRANYLOCYTES 0.4 % (test code = 1036) NUCLEATED RBCS (test 0.0 /100 WBC'S See_Comment [Aut omated code = 1065) message] The sy stem which generated this result transmitted reference range : 0.0. The refere nce range was not u sed to interpret th is result as normal/abnormal . PLATELET COUNT (test 250 K/UL 130-400 code = 1015) ABSOLUTE NEUTROPHILS 2.05 K/UL 1.50-7.50 (test code = 1066) ABSOLUTE LYMPHOCYTES 1.82 K/UL 1.00-4.00 (test code = 1067) ABSOLUTE MONOCYTES 0.70 K/UL 0.20-1.00 (test code = 1068) ABSOLUTE EOSINOPHILS 0.11 K/UL 0.00-0.50 (test code = 1040) ABSOLUTE BASOPHILS 0.02 K/UL 0.00-0.20 (test code = 1069) ABS IMMATURE 0.02 K/UL 0.00-0.10 GRANULOCYTES (test code = 1020) ABS NUCLEATED RBCS 0.00 K/UL 0.00-0.11 (test code = 53128) CBC W/AUTO [id number] 00:00:00 Test Item Value Reference Range Interpretation Comments WBC (test code = 1001) 4.7 K/UL RBC (test code = 1002) 3.17 M/UL HEMOGLOBIN (test code = 1003) 8.3 G/DL HEMATOCRIT (test code = 1004) 25.8 % MCV (test code = 1005) 81.4 fL MCH (test code = 1006) 26.2 PG MCHC (test code = 1007) 32.2 G/DL RDW (test code = 1038) 13.6 % NEUTROPHILS (test code = 1008) 43.5 % LYMPHOCYTES (test code = 1010) 38.6 % MONOCYTES (test code = 1011) 14.8 % EOSINOPHILS (test code = 1012) 2.3 % BASOPHILS (test code = 1013) 0.4 % IMMATURE GRANYLOCYTES (test 0.4 % code = 1036) NUCLEATED RBCS (test code = 0.0 /100WBC'S 1065) PLATELET COUNT (test code = 250 K/UL 1015) ABSOLUTE NEUTROPHILS (test code 2.05 K/UL = 1066) ABSOLUTE LYMPHOCYTES (test code 1.82 K/UL = 1067) ABSOLUTE MONOCYTES (test code = 0.70 K/UL 1068) ABSOLUTE EOSINOPHILS (test code 0.11 K/UL = 1040) ABSOLUTE BASOPHILS (test code = 0.02 K/UL 1069) ABS IMMATURE GRANULOCYTES (test 0.02 K/UL code = 1020) ABS NUCLEATED RBCS (test code = 0.00 K/UL 17727) CBC W/AUTO [id number] 00:00:00 Test Item Value Reference Range Interpretation Comments WBC (test code = 1001) 4.7 K/UL RBC (test code = 1002) 3.17 M/UL HEMOGLOBIN (test code = 1003) 8.3 G/DL HEMATOCRIT (test code = 1004) 25.8 % MCV (test code = 1005) 81.4 fL MCH (test code = 1006) 26.2 PG MCHC (test code = 1007) 32.2 G/DL RDW (test code = 1038) 13.6 % NEUTROPHILS (test code = 1008) 43.5 % LYMPHOCYTES (test code = 1010) 38.6 % MONOCYTES (test code = 1011) 14.8 % EOSINOPHILS (test code = 1012) 2.3 % BASOPHILS (test code = 1013) 0.4 % IMMATURE GRANYLOCYTES (test 0.4 % code = 1036) NUCLEATED RBCS (test code = 0.0 /100WBC'S 1065) PLATELET COUNT (test code = 250 K/UL 1015) ABSOLUTE NEUTROPHILS (test code 2.05 K/UL = 1066) ABSOLUTE LYMPHOCYTES (test code 1.82 K/UL = 1067) ABSOLUTE MONOCYTES (test code = 0.70 K/UL 1068) ABSOLUTE EOSINOPHILS (test code 0.11 K/UL = 1040) ABSOLUTE BASOPHILS (test code = 0.02 K/UL 1069) ABS IMMATURE GRANULOCYTES (test 0.02 K/UL code = 1020) ABS NUCLEATED RBCS (test code = 0.00 K/UL 84679) COMPREHENSIVE METABOLIC [id number] 00:00:00 Test Item Value Reference Range Interpretation Comments GLUCOSE (test code = 2217) 92 MG/DL BUN (test code = 2208) 22 MG/DL CREATININE (test code = 2214) 0.67 MG/DL eGFR (2020 CKD-EPI) (test 104 ML/MIN/1.73 code = 83815) CALC BUN/CREAT (test code = 33 RATIO 2235) SODIUM (test code = 2231) 145 MEQ/L POTASSIUM (test code = 2228) 4.8 MEQ/L CHLORIDE (test code = 2215) 104 MEQ/L CARBON DIOXIDE (test code = 30 MEQ/L 2206) CALCIUM (test code = 2209) 10.4 MG/DL PROTEIN, TOTAL (test code = 6.9 G/DL 2228) ALBUMIN (test code = 2201) 4.0 G/DL CALC GLOBULIN (test code = 2.9 G/DL 2240) CALC A/G RATIO (test code = 1.4 RATIO 2234) BILIRUBIN, TOTAL (test code = <0.2 MG/DL 2207) ALKALINE PHOSPHATASE (test 132 U/L code = 2204) AST (test code = 2218) 29 U/L ALT (test code = 2219) 32 U/L CBC W/AUTO [id number] 00:00:00 Test Item Value Reference Range Interpretation Comments WBC (test code = 1001) 4.7 K/UL RBC (test code = 1002) 3.17 M/UL HEMOGLOBIN (test code = 1003) 8.3 G/DL HEMATOCRIT (test code = 1004) 25.8 % MCV (test code = 1005) 81.4 fL MCH (test code = 1006) 26.2 PG MCHC (test code = 1007) 32.2 G/DL RDW (test code = 1038) 13.6 % NEUTROPHILS (test code = 1008) 43.5 % LYMPHOCYTES (test code = 1010) 38.6 % MONOCYTES (test code = 1011) 14.8 % EOSINOPHILS (test code = 1012) 2.3 % BASOPHILS (test code = 1013) 0.4 % IMMATURE GRANYLOCYTES (test 0.4 % code = 1036) NUCLEATED RBCS (test code = 0.0 /100WBC'S 1065) PLATELET COUNT (test code = 250 K/UL 1015) ABSOLUTE NEUTROPHILS (test code 2.05 K/UL = 1066) ABSOLUTE LYMPHOCYTES (test code 1.82 K/UL = 1067) ABSOLUTE MONOCYTES (test code = 0.70 K/UL 1068) ABSOLUTE EOSINOPHILS (test code 0.11 K/UL = 1040) ABSOLUTE BASOPHILS (test code = 0.02 K/UL 1069) ABS IMMATURE GRANULOCYTES (test 0.02 K/UL code = 1020) ABS NUCLEATED RBCS (test code = 0.00 K/UL 93946) CBC W/AUTO [id number] 00:00:00 Test Item Value Reference Range Interpretation Comments WBC (test code = 1001) 4.7 K/UL RBC (test code = 1002) 3.17 M/UL HEMOGLOBIN (test code = 1003) 8.3 G/DL HEMATOCRIT (test code = 1004) 25.8 % MCV (test code = 1005) 81.4 fL MCH (test code = 1006) 26.2 PG MCHC (test code = 1007) 32.2 G/DL RDW (test code = 1038) 13.6 % NEUTROPHILS (test code = 1008) 43.5 % LYMPHOCYTES (test code = 1010) 38.6 % MONOCYTES (test code = 1011) 14.8 % EOSINOPHILS (test code = 1012) 2.3 % BASOPHILS (test code = 1013) 0.4 % IMMATURE GRANYLOCYTES (test 0.4 % code = 1036) NUCLEATED RBCS (test code = 0.0 /100WBC'S 1065) PLATELET COUNT (test code = 250 K/UL 1015) ABSOLUTE NEUTROPHILS (test code 2.05 K/UL = 1066) ABSOLUTE LYMPHOCYTES (test code 1.82 K/UL = 1067) ABSOLUTE MONOCYTES (test code = 0.70 K/UL 1068) ABSOLUTE EOSINOPHILS (test code 0.11 K/UL = 1040) ABSOLUTE BASOPHILS (test code = 0.02 K/UL 1069) ABS IMMATURE GRANULOCYTES (test 0.02 K/UL code = 1020) ABS NUCLEATED RBCS (test code = 0.00 K/UL 32180) COMPREHENSIVE METABOLIC [id number] 00:00:00 Test Item Value Reference Range Interpretation Comments GLUCOSE (test code = 2217) 92 MG/DL BUN (test code = 2208) 22 MG/DL CREATININE (test code = 2214) 0.67 MG/DL eGFR (2020 CKD-EPI) (test 104 ML/MIN/1.73 code = 89878) CALC BUN/CREAT (test code = 33 RATIO 2235) SODIUM (test code = 2231) 145 MEQ/L POTASSIUM (test code = 2228) 4.8 MEQ/L CHLORIDE (test code = 2215) 104 MEQ/L CARBON DIOXIDE (test code = 30 MEQ/L 2205) CALCIUM (test code = 2209) 10.4 MG/DL PROTEIN, TOTAL (test code = 6.9 G/DL 2228) ALBUMIN (test code = 2201) 4.0 G/DL CALC GLOBULIN (test code = 2.9 G/DL 2240) CALC A/G RATIO (test code = 1.4 RATIO 2234) BILIRUBIN, TOTAL (test code = <0.2 MG/DL 2206) ALKALINE PHOSPHATASE (test 132 U/L code = 2204) AST (test code = 2218) 29 U/L ALT (test code = 2219) 32 U/L CBC W/AUTO [id number] 00:00:00 Test Item Value Reference Range Interpretation Comments WBC (test code = 1001) 4.7 K/UL RBC (test code = 1002) 3.17 M/UL HEMOGLOBIN (test code = 1003) 8.3 G/DL HEMATOCRIT (test code = 1004) 25.8 % MCV (test code = 1005) 81.4 fL MCH (test code = 1006) 26.2 PG MCHC (test code = 1007) 32.2 G/DL RDW (test code = 1038) 13.6 % NEUTROPHILS (test code = 1008) 43.5 % LYMPHOCYTES (test code = 1010) 38.6 % MONOCYTES (test code = 1011) 14.8 % EOSINOPHILS (test code = 1012) 2.3 % BASOPHILS (test code = 1013) 0.4 % IMMATURE GRANYLOCYTES (test 0.4 % code = 1036) NUCLEATED RBCS (test code = 0.0 /100WBC'S 1065) PLATELET COUNT (test code = 250 K/UL 1015) ABSOLUTE NEUTROPHILS (test code 2.05 K/UL = 1066) ABSOLUTE LYMPHOCYTES (test code 1.82 K/UL = 1067) ABSOLUTE MONOCYTES (test code = 0.70 K/UL 1068) ABSOLUTE EOSINOPHILS (test code 0.11 K/UL = 1040) ABSOLUTE BASOPHILS (test code = 0.02 K/UL 1069) ABS IMMATURE GRANULOCYTES (test 0.02 K/UL code = 1020) ABS NUCLEATED RBCS (test code = 0.00 K/UL 74617) CBC W/AUTO [id number] 00:00:00 Test Item Value Reference Range Interpretation Comments WBC (test code = 1001) 4.7 K/UL RBC (test code = 1002) 3.17 M/UL HEMOGLOBIN (test code = 1003) 8.3 G/DL HEMATOCRIT (test code = 1004) 25.8 % MCV (test code = 1005) 81.4 fL MCH (test code = 1006) 26.2 PG MCHC (test code = 1007) 32.2 G/DL RDW (test code = 1038) 13.6 % NEUTROPHILS (test code = 1008) 43.5 % LYMPHOCYTES (test code = 1010) 38.6 % MONOCYTES (test code = 1011) 14.8 % EOSINOPHILS (test code = 1012) 2.3 % BASOPHILS (test code = 1013) 0.4 % IMMATURE GRANYLOCYTES (test 0.4 % code = 1036) NUCLEATED RBCS (test code = 0.0 /100WBC'S 1065) PLATELET COUNT (test code = 250 K/UL 1015) ABSOLUTE NEUTROPHILS (test code 2.05 K/UL = 1066) ABSOLUTE LYMPHOCYTES (test code 1.82 K/UL = 1067) ABSOLUTE MONOCYTES (test code = 0.70 K/UL 1068) ABSOLUTE EOSINOPHILS (test code 0.11 K/UL = 1040) ABSOLUTE BASOPHILS (test code = 0.02 K/UL 1069) ABS IMMATURE GRANULOCYTES (test 0.02 K/UL code = 1020) ABS NUCLEATED RBCS (test code = 0.00 K/UL 67985) CBC W/AUTO [id number] 00:00:00 Test Item Value Reference Range Interpretation Comments WBC (test code = 1001) 4.7 K/UL RBC (test code = 1002) 3.17 M/UL HEMOGLOBIN (test code = 1003) 8.3 G/DL HEMATOCRIT (test code = 1004) 25.8 % MCV (test code = 1005) 81.4 fL MCH (test code = 1006) 26.2 PG MCHC (test code = 1007) 32.2 G/DL RDW (test code = 1038) 13.6 % NEUTROPHILS (test code = 1008) 43.5 % LYMPHOCYTES (test code = 1010) 38.6 % MONOCYTES (test code = 1011) 14.8 % EOSINOPHILS (test code = 1012) 2.3 % BASOPHILS (test code = 1013) 0.4 % IMMATURE GRANYLOCYTES (test 0.4 % code = 1036) NUCLEATED RBCS (test code = 0.0 /100WBC'S 1065) PLATELET COUNT (test code = 250 K/UL 1015) ABSOLUTE NEUTROPHILS (test code 2.05 K/UL = 1066) ABSOLUTE LYMPHOCYTES (test code 1.82 K/UL = 1067) ABSOLUTE MONOCYTES (test code = 0.70 K/UL 1068) ABSOLUTE EOSINOPHILS (test code 0.11 K/UL = 1040) ABSOLUTE BASOPHILS (test code = 0.02 K/UL 1069) ABS IMMATURE GRANULOCYTES (test 0.02 K/UL code = 1020) ABS NUCLEATED RBCS (test code = 0.00 K/UL 25160) COMPREHENSIVE METABOLIC [id number] 00:00:00 Test Item Value Reference Range Interpretation Comments GLUCOSE (test code = 2217) 92 MG/DL BUN (test code = 2208) 22 MG/DL CREATININE (test code = 2214) 0.67 MG/DL eGFR (2020 CKD-EPI) (test 104 ML/MIN/1.73 code = 67129) CALC BUN/CREAT (test code = 33 RATIO 2235) SODIUM (test code = 2231) 145 MEQ/L POTASSIUM (test code = 2228) 4.8 MEQ/L CHLORIDE (test code = 2215) 104 MEQ/L CARBON DIOXIDE (test code = 30 MEQ/L 2205) CALCIUM (test code = 2209) 10.4 MG/DL PROTEIN, TOTAL (test code = 6.9 G/DL 2228) ALBUMIN (test code = 2201) 4.0 G/DL CALC GLOBULIN (test code = 2.9 G/DL 2239) CALC A/G RATIO (test code = 1.4 RATIO 2234) BILIRUBIN, TOTAL (test code = <0.2 MG/DL 2206) ALKALINE PHOSPHATASE (test 132 U/L code = 2204) AST (test code = 2218) 29 U/L ALT (test code = 2219) 32 U/L COMPREHENSIVE METABOLIC [id number] 00:00:00 Test Item Value Reference Range Interpretation Comments GLUCOSE (test code = 2217) 92 MG/DL BUN (test code = 2208) 22 MG/DL CREATININE (test code = 2214) 0.67 MG/DL eGFR (2020 CKD-EPI) (test 104 ML/MIN/1.73 code = 36763) CALC BUN/CREAT (test code = 33 RATIO 2235) SODIUM (test code = 2231) 145 MEQ/L POTASSIUM (test code = 2228) 4.8 MEQ/L CHLORIDE (test code = 2215) 104 MEQ/L CARBON DIOXIDE (test code = 30 MEQ/L 220) CALCIUM (test code = 2209) 10.4 MG/DL PROTEIN, TOTAL (test code = 6.9 G/DL 2228) ALBUMIN (test code = 2201) 4.0 G/DL CALC GLOBULIN (test code = 2.9 G/DL 2240) CALC A/G RATIO (test code = 1.4 RATIO 2234) BILIRUBIN, TOTAL (test code = <0.2 MG/DL 220) ALKALINE PHOSPHATASE (test 132 U/L code = 2204) AST (test code = 2218) 29 U/L ALT (test code = 2219) 32 U/L CBC W/AUTO [id number] 00:00:00 Test Item Value Reference Range Interpretation Comments WBC (test code = 1001) 4.7 K/UL RBC (test code = 1002) 3.17 M/UL HEMOGLOBIN (test code = 1003) 8.3 G/DL HEMATOCRIT (test code = 1004) 25.8 % MCV (test code = 1005) 81.4 fL MCH (test code = 1006) 26.2 PG MCHC (test code = 1007) 32.2 G/DL RDW (test code = 1038) 13.6 % NEUTROPHILS (test code = 1008) 43.5 % LYMPHOCYTES (test code = 1010) 38.6 % MONOCYTES (test code = 1011) 14.8 % EOSINOPHILS (test code = 1012) 2.3 % BASOPHILS (test code = 1013) 0.4 % IMMATURE GRANYLOCYTES (test 0.4 % code = 1036) NUCLEATED RBCS (test code = 0.0 /100WBC'S 1065) PLATELET COUNT (test code = 250 K/UL 1015) ABSOLUTE NEUTROPHILS (test code 2.05 K/UL = 1066) ABSOLUTE LYMPHOCYTES (test code 1.82 K/UL = 1067) ABSOLUTE MONOCYTES (test code = 0.70 K/UL 1068) ABSOLUTE EOSINOPHILS (test code 0.11 K/UL = 1040) ABSOLUTE BASOPHILS (test code = 0.02 K/UL 1069) ABS IMMATURE GRANULOCYTES (test 0.02 K/UL code = 1020) ABS NUCLEATED RBCS (test code = 0.00 K/UL 22926) CBC W/AUTO [id number] 00:00:00 Test Item Value Reference Range Interpretation Comments WBC (test code = 1001) 4.7 K/UL RBC (test code = 1002) 3.17 M/UL HEMOGLOBIN (test code = 1003) 8.3 G/DL HEMATOCRIT (test code = 1004) 25.8 % MCV (test code = 1005) 81.4 fL MCH (test code = 1006) 26.2 PG MCHC (test code = 1007) 32.2 G/DL RDW (test code = 1038) 13.6 % NEUTROPHILS (test code = 1008) 43.5 % LYMPHOCYTES (test code = 1010) 38.6 % MONOCYTES (test code = 1011) 14.8 % EOSINOPHILS (test code = 1012) 2.3 % BASOPHILS (test code = 1013) 0.4 % IMMATURE GRANYLOCYTES (test 0.4 % code = 1036) NUCLEATED RBCS (test code = 0.0 /100WBC'S 1065) PLATELET COUNT (test code = 250 K/UL 1015) ABSOLUTE NEUTROPHILS (test code 2.05 K/UL = 1066) ABSOLUTE LYMPHOCYTES (test code 1.82 K/UL = 1067) ABSOLUTE MONOCYTES (test code = 0.70 K/UL 1068) ABSOLUTE EOSINOPHILS (test code 0.11 K/UL = 1040) ABSOLUTE BASOPHILS (test code = 0.02 K/UL 1069) ABS IMMATURE GRANULOCYTES (test 0.02 K/UL code = 1020) ABS NUCLEATED RBCS (test code = 0.00 K/UL 09441) CBC W/AUTO [id number] 00:00:00 Test Item Value Reference Range Interpretation Comments WBC (test code = 1001) 4.7 K/UL RBC (test code = 1002) 3.17 M/UL HEMOGLOBIN (test code = 1003) 8.3 G/DL HEMATOCRIT (test code = 1004) 25.8 % MCV (test code = 1005) 81.4 fL MCH (test code = 1006) 26.2 PG MCHC (test code = 1007) 32.2 G/DL RDW (test code = 1038) 13.6 % NEUTROPHILS (test code = 1008) 43.5 % LYMPHOCYTES (test code = 1010) 38.6 % MONOCYTES (test code = 1011) 14.8 % EOSINOPHILS (test code = 1012) 2.3 % BASOPHILS (test code = 1013) 0.4 % IMMATURE GRANYLOCYTES (test 0.4 % code = 1036) NUCLEATED RBCS (test code = 0.0 /100WBC'S 1065) PLATELET COUNT (test code = 250 K/UL 1015) ABSOLUTE NEUTROPHILS (test code 2.05 K/UL = 1066) ABSOLUTE LYMPHOCYTES (test code 1.82 K/UL = 1067) ABSOLUTE MONOCYTES (test code = 0.70 K/UL 1068) ABSOLUTE EOSINOPHILS (test code 0.11 K/UL = 1040) ABSOLUTE BASOPHILS (test code = 0.02 K/UL 1069) ABS IMMATURE GRANULOCYTES (test 0.02 K/UL code = 1020) ABS NUCLEATED RBCS (test code = 0.00 K/UL 78514) COMPREHENSIVE METABOLIC [id number] 00:00:00 Test Item Value Reference Range Interpretation Comments GLUCOSE (test code = 2217) 92 MG/DL BUN (test code = 2208) 22 MG/DL CREATININE (test code = 2214) 0.67 MG/DL eGFR (2020 CKD-EPI) (test 104 ML/MIN/1.73 code = 24724) CALC BUN/CREAT (test code = 33 RATIO 2235) SODIUM (test code = 2231) 145 MEQ/L POTASSIUM (test code = 2228) 4.8 MEQ/L CHLORIDE (test code = 2215) 104 MEQ/L CARBON DIOXIDE (test code = 30 MEQ/L 2205) CALCIUM (test code = 2209) 10.4 MG/DL PROTEIN, TOTAL (test code = 6.9 G/DL 2228) ALBUMIN (test code = 2201) 4.0 G/DL CALC GLOBULIN (test code = 2.9 G/DL 2240) CALC A/G RATIO (test code = 1.4 RATIO 2234) BILIRUBIN, TOTAL (test code = <0.2 MG/DL 2206) ALKALINE PHOSPHATASE (test 132 U/L code = 2204) AST (test code = 2218) 29 U/L ALT (test code = 2219) 32 U/L COMPREHENSIVE METABOLIC [id number] 00:00:00 Test Item Value Reference Range Interpretation Comments GLUCOSE (test code = 2217) 92 MG/DL BUN (test code = 2208) 22 MG/DL CREATININE (test code = 2214) 0.67 MG/DL eGFR (2020 CKD-EPI) (test 104 ML/MIN/1.73 code = 42600) CALC BUN/CREAT (test code = 33 RATIO 2235) SODIUM (test code = 2231) 145 MEQ/L POTASSIUM (test code = 2228) 4.8 MEQ/L CHLORIDE (test code = 2215) 104 MEQ/L CARBON DIOXIDE (test code = 30 MEQ/L 2205) CALCIUM (test code = 2209) 10.4 MG/DL PROTEIN, TOTAL (test code = 6.9 G/DL 2228) ALBUMIN (test code = 2201) 4.0 G/DL CALC GLOBULIN (test code = 2.9 G/DL 2239) CALC A/G RATIO (test code = 1.4 RATIO 2233) BILIRUBIN, TOTAL (test code = <0.2 MG/DL 2206) ALKALINE PHOSPHATASE (test 132 U/L code = 2204) AST (test code = 2218) 29 U/L ALT (test code = 2219) 32 U/L CBC W/AUTO [id number] 00:00:00 Test Item Value Reference Range Interpretation Comments WBC (test code = 1001) 7.0 K/UL RBC (test code = 1002) 4.09 M/UL HEMOGLOBIN (test code = 1003) 11.4 G/DL HEMATOCRIT (test code = 1004) 33.6 % MCV (test code = 1005) 82.2 fL MCH (test code = 1006) 27.9 PG MCHC (test code = 1007) 33.9 G/DL RDW (test code = 1038) 12.8 % NEUTROPHILS (test code = 1008) 57.5 % LYMPHOCYTES (test code = 1010) 26.8 % MONOCYTES (test code = 1011) 13.1 % EOSINOPHILS (test code = 1012) 1.9 % BASOPHILS (test code = 1013) 0.4 % IMMATURE GRANULOCYTES (test 0.3 % code = 1036) NUCLEATED RBCS (test code = 0.0 /100WBC'S 1065) PLATELET COUNT (test code = 282 K/UL 1015) ABSOLUTE NEUTROPHILS (test code 4.03 K/UL = 1066) ABSOLUTE LYMPHOCYTES (test code 1.88 K/UL = 1067) ABSOLUTE MONOCYTES (test code = 0.92 K/UL 1068) ABSOLUTE EOSINOPHILS (test code 0.13 K/UL = 1040) ABSOLUTE BASOPHILS (test code = 0.03 K/UL 1069) ABS IMMATURE GRANULOCYTES (test 0.02 K/UL code = 1020) ABS NUCLEATED RBCS (test code = 0.00 K/UL 63632) CBC W/AUTO [id number] 00:00:00 Test Item Value Reference Range Interpretation Comments WBC (test code = 1001) 7.0 K/UL RBC (test code = 1002) 4.09 M/UL HEMOGLOBIN (test code = 1003) 11.4 G/DL HEMATOCRIT (test code = 1004) 33.6 % MCV (test code = 1005) 82.2 fL MCH (test code = 1006) 27.9 PG MCHC (test code = 1007) 33.9 G/DL RDW (test code = 1038) 12.8 % NEUTROPHILS (test code = 1008) 57.5 % LYMPHOCYTES (test code = 1010) 26.8 % MONOCYTES (test code = 1011) 13.1 % EOSINOPHILS (test code = 1012) 1.9 % BASOPHILS (test code = 1013) 0.4 % IMMATURE GRANULOCYTES (test 0.3 % code = 1036) NUCLEATED RBCS (test code = 0.0 /100WBC'S 1065) PLATELET COUNT (test code = 282 K/UL 1015) ABSOLUTE NEUTROPHILS (test code 4.03 K/UL = 1066) ABSOLUTE LYMPHOCYTES (test code 1.88 K/UL = 1067) ABSOLUTE MONOCYTES (test code = 0.92 K/UL 1068) ABSOLUTE EOSINOPHILS (test code 0.13 K/UL = 1040) ABSOLUTE BASOPHILS (test code = 0.03 K/UL 1069) ABS IMMATURE GRANULOCYTES (test 0.02 K/UL code = 1020) ABS NUCLEATED RBCS (test code = 0.00 K/UL 30577) COMPREHENSIVE METABOLIC [id number] 00:00:00 Test Item Value Reference Range Interpretation Comments GLUCOSE (test code = 2217) 129 MG/DL BUN (test code = 2208) 13 MG/DL CREATININE (test code = 2214) 0.45 MG/DL eGFR AMER. (test code 133 ML/MIN/1.73 = 43975) eGFR NON- AMER. (test 114 ML/MIN/1.73 code = 37895) CALC BUN/CREAT (test code = 29 RATIO 2235) SODIUM (test code = 2231) 142 MEQ/L POTASSIUM (test code = 2228) 4.4 MEQ/L CHLORIDE (test code = 2215) 104 MEQ/L CARBON DIOXIDE (test code = 26 MEQ/L 2206) CALCIUM (test code = 2209) 9.8 MG/DL PROTEIN, TOTAL (test code = 7.1 G/DL 222) ALBUMIN (test code = 2201) 3.9 G/DL CALC GLOBULIN (test code = 3.2 G/DL 2240) CALC A/G RATIO (test code = 1.2 RATIO 2234) BILIRUBIN, TOTAL (test code = 0.2 MG/DL 2206) ALKALINE PHOSPHATASE (test 99 U/L code = 2204) AST (test code = 2218) 17 U/L ALT (test code = 2219) 22 U/L [id number] 00:00:00 Test Item Value Reference Range Interpretation Comments CKMB (test code = 17239) 1.2 NG/ML TROPONIN [id number] 00:00:00 Test Item Value Reference Range Interpretation Comments TROPONIN T (test code = 4017) <0.010 UG/L CBC W/AUTO [id number] 00:00:00 Test Item Value Reference Range Interpretation Comments WBC (test code = 1001) 7.0 K/UL RBC (test code = 1002) 4.09 M/UL HEMOGLOBIN (test code = 1003) 11.4 G/DL HEMATOCRIT (test code = 1004) 33.6 % MCV (test code = 1005) 82.2 fL MCH (test code = 1006) 27.9 PG MCHC (test code = 1007) 33.9 G/DL RDW (test code = 1038) 12.8 % NEUTROPHILS (test code = 1008) 57.5 % LYMPHOCYTES (test code = 1010) 26.8 % MONOCYTES (test code = 1011) 13.1 % EOSINOPHILS (test code = 1012) 1.9 % BASOPHILS (test code = 1013) 0.4 % IMMATURE GRANULOCYTES (test 0.3 % code = 1036) NUCLEATED RBCS (test code = 0.0 /100WBC'S 1065) PLATELET COUNT (test code = 282 K/UL 1015) ABSOLUTE NEUTROPHILS (test code 4.03 K/UL = 1066) ABSOLUTE LYMPHOCYTES (test code 1.88 K/UL = 1067) ABSOLUTE MONOCYTES (test code = 0.92 K/UL 1068) ABSOLUTE EOSINOPHILS (test code 0.13 K/UL = 1040) ABSOLUTE BASOPHILS (test code = 0.03 K/UL 1069) ABS IMMATURE GRANULOCYTES (test 0.02 K/UL code = 1020) ABS NUCLEATED RBCS (test code = 0.00 K/UL 00169) CBC W/AUTO [id number] 00:00:00 Test Item Value Reference Range Interpretation Comments WBC (test code = 1001) 7.0 K/UL RBC (test code = 1002) 4.09 M/UL HEMOGLOBIN (test code = 1003) 11.4 G/DL HEMATOCRIT (test code = 1004) 33.6 % MCV (test code = 1005) 82.2 fL MCH (test code = 1006) 27.9 PG MCHC (test code = 1007) 33.9 G/DL RDW (test code = 1038) 12.8 % NEUTROPHILS (test code = 1008) 57.5 % LYMPHOCYTES (test code = 1010) 26.8 % MONOCYTES (test code = 1011) 13.1 % EOSINOPHILS (test code = 1012) 1.9 % BASOPHILS (test code = 1013) 0.4 % IMMATURE GRANULOCYTES (test 0.3 % code = 1036) NUCLEATED RBCS (test code = 0.0 /100WBC'S 1065) PLATELET COUNT (test code = 282 K/UL 1015) ABSOLUTE NEUTROPHILS (test code 4.03 K/UL = 1066) ABSOLUTE LYMPHOCYTES (test code 1.88 K/UL = 1067) ABSOLUTE MONOCYTES (test code = 0.92 K/UL 1068) ABSOLUTE EOSINOPHILS (test code 0.13 K/UL = 1040) ABSOLUTE BASOPHILS (test code = 0.03 K/UL 1069) ABS IMMATURE GRANULOCYTES (test 0.02 K/UL code = 1020) ABS NUCLEATED RBCS (test code = 0.00 K/UL 37503) COMPREHENSIVE METABOLIC [id number] 00:00:00 Test Item Value Reference Range Interpretation Comments GLUCOSE (test code = 2217) 129 MG/DL BUN (test code = 2208) 13 MG/DL CREATININE (test code = 2214) 0.45 MG/DL eGFR AMER. (test code 133 ML/MIN/1.73 = 59097) eGFR NON- AMER. (test 114 ML/MIN/1.73 code = 66084) CALC BUN/CREAT (test code = 29 RATIO 2235) SODIUM (test code = 2231) 142 MEQ/L POTASSIUM (test code = 2228) 4.4 MEQ/L CHLORIDE (test code = 2215) 104 MEQ/L CARBON DIOXIDE (test code = 26 MEQ/L 2205) CALCIUM (test code = 2209) 9.8 MG/DL PROTEIN, TOTAL (test code = 7.1 G/DL 2228) ALBUMIN (test code = 2201) 3.9 G/DL CALC GLOBULIN (test code = 3.2 G/DL 2239) CALC A/G RATIO (test code = 1.2 RATIO 2233) BILIRUBIN, TOTAL (test code = 0.2 MG/DL 2206) ALKALINE PHOSPHATASE (test 99 U/L code = 220) AST (test code = 2218) 17 U/L ALT (test code = 221) 22 U/L [id number] 00:00:00 Test Item Value Reference Range Interpretation Comments CKMB (test code = 33892) 1.2 NG/ML TROPONIN [id number] 00:00:00 Test Item Value Reference Range Interpretation Comments TROPONIN T (test code = 4017) <0.010 UG/L CBC W/AUTO [id number] 00:00:00 Test Item Value Reference Range Interpretation Comments WBC (test code = 1001) 7.0 K/UL RBC (test code = 1002) 4.09 M/UL HEMOGLOBIN (test code = 1003) 11.4 G/DL HEMATOCRIT (test code = 1004) 33.6 % MCV (test code = 1005) 82.2 fL MCH (test code = 1006) 27.9 PG MCHC (test code = 1007) 33.9 G/DL RDW (test code = 1038) 12.8 % NEUTROPHILS (test code = 1008) 57.5 % LYMPHOCYTES (test code = 1010) 26.8 % MONOCYTES (test code = 1011) 13.1 % EOSINOPHILS (test code = 1012) 1.9 % BASOPHILS (test code = 1013) 0.4 % IMMATURE GRANULOCYTES (test 0.3 % code = 1036) NUCLEATED RBCS (test code = 0.0 /100WBC'S 1065) PLATELET COUNT (test code = 282 K/UL 1015) ABSOLUTE NEUTROPHILS (test code 4.03 K/UL = 1066) ABSOLUTE LYMPHOCYTES (test code 1.88 K/UL = 1067) ABSOLUTE MONOCYTES (test code = 0.92 K/UL 1068) ABSOLUTE EOSINOPHILS (test code 0.13 K/UL = 1040) ABSOLUTE BASOPHILS (test code = 0.03 K/UL 1069) ABS IMMATURE GRANULOCYTES (test 0.02 K/UL code = 1020) ABS NUCLEATED RBCS (test code = 0.00 K/UL 14822) CBC W/AUTO [id number] 00:00:00 Test Item Value Reference Range Interpretation Comments WBC (test code = 1001) 7.0 K/UL RBC (test code = 1002) 4.09 M/UL HEMOGLOBIN (test code = 1003) 11.4 G/DL HEMATOCRIT (test code = 1004) 33.6 % MCV (test code = 1005) 82.2 fL MCH (test code = 1006) 27.9 PG MCHC (test code = 1007) 33.9 G/DL RDW (test code = 1038) 12.8 % NEUTROPHILS (test code = 1008) 57.5 % LYMPHOCYTES (test code = 1010) 26.8 % MONOCYTES (test code = 1011) 13.1 % EOSINOPHILS (test code = 1012) 1.9 % BASOPHILS (test code = 1013) 0.4 % IMMATURE GRANULOCYTES (test 0.3 % code = 1036) NUCLEATED RBCS (test code = 0.0 /100WBC'S 1065) PLATELET COUNT (test code = 282 K/UL 1015) ABSOLUTE NEUTROPHILS (test code 4.03 K/UL = 1066) ABSOLUTE LYMPHOCYTES (test code 1.88 K/UL = 1067) ABSOLUTE MONOCYTES (test code = 0.92 K/UL 1068) ABSOLUTE EOSINOPHILS (test code 0.13 K/UL = 1040) ABSOLUTE BASOPHILS (test code = 0.03 K/UL 1069) ABS IMMATURE GRANULOCYTES (test 0.02 K/UL code = 1020) ABS NUCLEATED RBCS (test code = 0.00 K/UL 60093) CBC W/AUTO [id number] 00:00:00 Test Item Value Reference Range Interpretation Comments WBC (test code = 1001) 7.0 K/UL RBC (test code = 1002) 4.09 M/UL HEMOGLOBIN (test code = 1003) 11.4 G/DL HEMATOCRIT (test code = 1004) 33.6 % MCV (test code = 1005) 82.2 fL MCH (test code = 1006) 27.9 PG MCHC (test code = 1007) 33.9 G/DL RDW (test code = 1038) 12.8 % NEUTROPHILS (test code = 1008) 57.5 % LYMPHOCYTES (test code = 1010) 26.8 % MONOCYTES (test code = 1011) 13.1 % EOSINOPHILS (test code = 1012) 1.9 % BASOPHILS (test code = 1013) 0.4 % IMMATURE GRANULOCYTES (test 0.3 % code = 1036) NUCLEATED RBCS (test code = 0.0 /100WBC'S 1065) PLATELET COUNT (test code = 282 K/UL 1015) ABSOLUTE NEUTROPHILS (test code 4.03 K/UL = 1066) ABSOLUTE LYMPHOCYTES (test code 1.88 K/UL = 1067) ABSOLUTE MONOCYTES (test code = 0.92 K/UL 1068) ABSOLUTE EOSINOPHILS (test code 0.13 K/UL = 1040) ABSOLUTE BASOPHILS (test code = 0.03 K/UL 1069) ABS IMMATURE GRANULOCYTES (test 0.02 K/UL code = 1020) ABS NUCLEATED RBCS (test code = 0.00 K/UL 44405) COMPREHENSIVE METABOLIC [id number] 00:00:00 Test Item Value Reference Range Interpretation Comments GLUCOSE (test code = 2217) 129 MG/DL BUN (test code = 2208) 13 MG/DL CREATININE (test code = 2214) 0.45 MG/DL eGFR AMER. (test code 133 ML/MIN/1.73 = 15412) eGFR NON- AMER. (test 114 ML/MIN/1.73 code = 75029) CALC BUN/CREAT (test code = 29 RATIO 2235) SODIUM (test code = 2231) 142 MEQ/L POTASSIUM (test code = 2228) 4.4 MEQ/L CHLORIDE (test code = 2215) 104 MEQ/L CARBON DIOXIDE (test code = 26 MEQ/L 220) CALCIUM (test code = 2209) 9.8 MG/DL PROTEIN, TOTAL (test code = 7.1 G/DL 2228) ALBUMIN (test code = 2201) 3.9 G/DL CALC GLOBULIN (test code = 3.2 G/DL 2240) CALC A/G RATIO (test code = 1.2 RATIO 223) BILIRUBIN, TOTAL (test code = 0.2 MG/DL 2206) ALKALINE PHOSPHATASE (test 99 U/L code = 2204) AST (test code = 2218) 17 U/L ALT (test code = 2219) 22 U/L COMPREHENSIVE METABOLIC [id number] 00:00:00 Test Item Value Reference Range Interpretation Comments GLUCOSE (test code = 2217) 129 MG/DL BUN (test code = 2208) 13 MG/DL CREATININE (test code = 2214) 0.45 MG/DL eGFR AMER. (test code 133 ML/MIN/1.73 = 57011) eGFR NON- AMER. (test 114 ML/MIN/1.73 code = 63124) CALC BUN/CREAT (test code = 29 RATIO 2235) SODIUM (test code = 2231) 142 MEQ/L POTASSIUM (test code = 2228) 4.4 MEQ/L CHLORIDE (test code = 2215) 104 MEQ/L CARBON DIOXIDE (test code = 26 MEQ/L 2205) CALCIUM (test code = 2209) 9.8 MG/DL PROTEIN, TOTAL (test code = 7.1 G/DL 2228) ALBUMIN (test code = 2201) 3.9 G/DL CALC GLOBULIN (test code = 3.2 G/DL 0) CALC A/G RATIO (test code = 1.2 RATIO 2233) BILIRUBIN, TOTAL (test code = 0.2 MG/DL 2206) ALKALINE PHOSPHATASE (test 99 U/L code = 2204) AST (test code = 2218) 17 U/L ALT (test code = 2219) 22 U/L [id number] 00:00:00 Test Item Value Reference Range Interpretation Comments CKMB (test code = 75201) 1.2 NG/ML [id number] 00:00:00 Test Item Value Reference Range Interpretation Comments CKMB (test code = 60101) 1.2 NG/ML TROPONIN [id number] 00:00:00 Test Item Value Reference Range Interpretation Comments TROPONIN T (test code = 4017) <0.010 UG/L TROPONIN [id number] 00:00:00 Test Item Value Reference Range Interpretation Comments TROPONIN T (test code = 4017) <0.010 UG/L CBC W/AUTO [id number] 00:00:00 Test Item Value Reference Range Interpretation Comments WBC (test code = 1001) 7.0 K/UL RBC (test code = 1002) 4.09 M/UL HEMOGLOBIN (test code = 1003) 11.4 G/DL HEMATOCRIT (test code = 1004) 33.6 % MCV (test code = 1005) 82.2 fL MCH (test code = 1006) 27.9 PG MCHC (test code = 1007) 33.9 G/DL RDW (test code = 1038) 12.8 % NEUTROPHILS (test code = 1008) 57.5 % LYMPHOCYTES (test code = 1010) 26.8 % MONOCYTES (test code = 1011) 13.1 % EOSINOPHILS (test code = 1012) 1.9 % BASOPHILS (test code = 1013) 0.4 % IMMATURE GRANULOCYTES (test 0.3 % code = 1036) NUCLEATED RBCS (test code = 0.0 /100WBC'S 1065) PLATELET COUNT (test code = 282 K/UL 1015) ABSOLUTE NEUTROPHILS (test code 4.03 K/UL = 1066) ABSOLUTE LYMPHOCYTES (test code 1.88 K/UL = 1067) ABSOLUTE MONOCYTES (test code = 0.92 K/UL 1068) ABSOLUTE EOSINOPHILS (test code 0.13 K/UL = 1040) ABSOLUTE BASOPHILS (test code = 0.03 K/UL 1069) ABS IMMATURE GRANULOCYTES (test 0.02 K/UL code = 1020) ABS NUCLEATED RBCS (test code = 0.00 K/UL 33396) CBC W/AUTO [id number] 00:00:00 Test Item Value Reference Range Interpretation Comments WBC (test code = 1001) 7.0 K/UL RBC (test code = 1002) 4.09 M/UL HEMOGLOBIN (test code = 1003) 11.4 G/DL HEMATOCRIT (test code = 1004) 33.6 % MCV (test code = 1005) 82.2 fL MCH (test code = 1006) 27.9 PG MCHC (test code = 1007) 33.9 G/DL RDW (test code = 1038) 12.8 % NEUTROPHILS (test code = 1008) 57.5 % LYMPHOCYTES (test code = 1010) 26.8 % MONOCYTES (test code = 1011) 13.1 % EOSINOPHILS (test code = 1012) 1.9 % BASOPHILS (test code = 1013) 0.4 % IMMATURE GRANULOCYTES (test 0.3 % code = 1036) NUCLEATED RBCS (test code = 0.0 /100WBC'S 1065) PLATELET COUNT (test code = 282 K/UL 1015) ABSOLUTE NEUTROPHILS (test code 4.03 K/UL = 1066) ABSOLUTE LYMPHOCYTES (test code 1.88 K/UL = 1067) ABSOLUTE MONOCYTES (test code = 0.92 K/UL 1068) ABSOLUTE EOSINOPHILS (test code 0.13 K/UL = 1040) ABSOLUTE BASOPHILS (test code = 0.03 K/UL 1069) ABS IMMATURE GRANULOCYTES (test 0.02 K/UL code = 1020) ABS NUCLEATED RBCS (test code = 0.00 K/UL 36438) CBC W/AUTO [id number] 00:00:00 Test Item Value Reference Range Interpretation Comments WBC (test code = 1001) 7.0 K/UL RBC (test code = 1002) 4.09 M/UL HEMOGLOBIN (test code = 1003) 11.4 G/DL HEMATOCRIT (test code = 1004) 33.6 % MCV (test code = 1005) 82.2 fL MCH (test code = 1006) 27.9 PG MCHC (test code = 1007) 33.9 G/DL RDW (test code = 1038) 12.8 % NEUTROPHILS (test code = 1008) 57.5 % LYMPHOCYTES (test code = 1010) 26.8 % MONOCYTES (test code = 1011) 13.1 % EOSINOPHILS (test code = 1012) 1.9 % BASOPHILS (test code = 1013) 0.4 % IMMATURE GRANULOCYTES (test 0.3 % code = 1036) NUCLEATED RBCS (test code = 0.0 /100WBC'S 1065) PLATELET COUNT (test code = 282 K/UL 1015) ABSOLUTE NEUTROPHILS (test code 4.03 K/UL = 1066) ABSOLUTE LYMPHOCYTES (test code 1.88 K/UL = 1067) ABSOLUTE MONOCYTES (test code = 0.92 K/UL 1068) ABSOLUTE EOSINOPHILS (test code 0.13 K/UL = 1040) ABSOLUTE BASOPHILS (test code = 0.03 K/UL 1069) ABS IMMATURE GRANULOCYTES (test 0.02 K/UL code = 1020) ABS NUCLEATED RBCS (test code = 0.00 K/UL 59859) COMPREHENSIVE METABOLIC [id number] 00:00:00 Test Item Value Reference Range Interpretation Comments GLUCOSE (test code = 2217) 129 MG/DL BUN (test code = 2208) 13 MG/DL CREATININE (test code = 2214) 0.45 MG/DL eGFR AMER. (test code 133 ML/MIN/1.73 = 24493) eGFR NON- AMER. (test 114 ML/MIN/1.73 code = 25088) CALC BUN/CREAT (test code = 29 RATIO 2235) SODIUM (test code = 2231) 142 MEQ/L POTASSIUM (test code = 2228) 4.4 MEQ/L CHLORIDE (test code = 2215) 104 MEQ/L CARBON DIOXIDE (test code = 26 MEQ/L 2205) CALCIUM (test code = 2209) 9.8 MG/DL PROTEIN, TOTAL (test code = 7.1 G/DL 2228) ALBUMIN (test code = 2201) 3.9 G/DL CALC GLOBULIN (test code = 3.2 G/DL 2240) CALC A/G RATIO (test code = 1.2 RATIO 2233) BILIRUBIN, TOTAL (test code = 0.2 MG/DL 2206) ALKALINE PHOSPHATASE (test 99 U/L code = 2204) AST (test code = 2218) 17 U/L ALT (test code = 2219) 22 U/L COMPREHENSIVE METABOLIC [id number] 00:00:00 Test Item Value Reference Range Interpretation Comments GLUCOSE (test code = 2217) 129 MG/DL BUN (test code = 2208) 13 MG/DL CREATININE (test code = 2214) 0.45 MG/DL eGFR AMER. (test code 133 ML/MIN/1.73 = 86058) eGFR NON- AMER. (test 114 ML/MIN/1.73 code = 33026) CALC BUN/CREAT (test code = 29 RATIO 2235) SODIUM (test code = 2231) 142 MEQ/L POTASSIUM (test code = 2228) 4.4 MEQ/L CHLORIDE (test code = 2215) 104 MEQ/L CARBON DIOXIDE (test code = 26 MEQ/L 220) CALCIUM (test code = 2209) 9.8 MG/DL PROTEIN, TOTAL (test code = 7.1 G/DL 2228) ALBUMIN (test code = 2201) 3.9 G/DL CALC GLOBULIN (test code = 3.2 G/DL 2240) CALC A/G RATIO (test code = 1.2 RATIO 2234) BILIRUBIN, TOTAL (test code = 0.2 MG/DL 7) ALKALINE PHOSPHATASE (test 99 U/L code = 2204) AST (test code = 2218) 17 U/L ALT (test code = 2219) 22 U/L [id number] 00:00:00 Test Item Value Reference Range Interpretation Comments CKMB (test code = 42540) 1.2 NG/ML [id number] 00:00:00 Test Item Value Reference Range Interpretation Comments CKMB (test code = ) 1.2 NG/ML TROPONIN [id number] 00:00:00 Test Item Value Reference Range Interpretation Comments TROPONIN T (test code = 4017) <0.010 UG/L TROPONIN [id number] 00:00:00 Test Item Value Reference Range Interpretation Comments TROPONIN T (test code = 4017) <0.010 UG/L SARS-CoV-2 (COVID-19) by RT-PCR (HIGH RISK)2021-06-18 00:00:00 Test Item Value Reference Range Interpretation Comments SARS-CoV-2 INTERPRETATION (test NEGATIVE code = 70772) SOURCE (test code = 38678) NOT SPECIFIED SARS-CoV-2 (COVID-19) by RT-PCR (HIGH RISK)2021-06-18 00:00:00 Test Item Value Reference Range Interpretation Comments SARS-CoV-2 INTERPRETATION (test NEGATIVE code = 81553) SOURCE (test code = 81747) NOT SPECIFIED SARS-CoV-2 (COVID-19) by RT-PCR (HIGH RISK)2021-06-18 00:00:00 Test Item Value Reference Range Interpretation Comments SARS-CoV-2 INTERPRETATION (test NEGATIVE code = 69995) SOURCE (test code = 01655) NOT SPECIFIED SARS-CoV-2 (COVID-19) by RT-PCR (HIGH RISK)2021-06-18 00:00:00 Test Item Value Reference Range Interpretation Comments SARS-CoV-2 INTERPRETATION (test NEGATIVE code = 08565) SOURCE (test code = 16967) NOT SPECIFIED SARS-CoV-2 (COVID-19) by RT-PCR (HIGH RISK)2021-06-18 00:00:00 Test Item Value Reference Range Interpretation Comments SARS-CoV-2 INTERPRETATION (test NEGATIVE code = 55620) SOURCE (test code = 52865) NOT SPECIFIED SARS-CoV-2 (COVID-19) by RT-PCR (HIGH RISK)2021-06-18 00:00:00 Test Item Value Reference Range Interpretation Comments SARS-CoV-2 INTERPRETATION (test NEGATIVE code = 57977) SOURCE (test code = 43455) NOT SPECIFIED PAP TEST, THINPREP, [id number] 00:00:00 Test Item Value Reference Range Interpretation Comments SOURCE: (test code = Cervical/Vaginal 8001) SLIDES: (test code = 1 8011) LMP: (test code = 8021) SEE NOTE SPECIMEN ADEQUACY: (test (NOTE) code = 86295) INTERPRETATION: (test NILM/NO EPITH. code = 47975) ABNORMALITY;SEE BELOW BUILDING GUARD DEPUTY SHERIFF: (test Davis SibleyCT(ASCP) code = 8101) LOCATION: (test code = (NOTE) 59578) CPT: (test code = 8140) 70990 PAP TEST, THINPREP, [id number] 00:00:00 Test Item Value Reference Range Interpretation Comments SOURCE: (test code = Cervical/Vaginal 8001) SLIDES: (test code = 1 8011) LMP: (test code = 8021) SEE NOTE SPECIMEN ADEQUACY: (test (NOTE) code = 62720) INTERPRETATION: (test NILM/NO EPITH. code = 74327) ABNORMALITY;SEE BELOW BUILDING GUARD DEPUTY SHERIFF: (test ANANYA Lange(ASCP) code = 8101) LOCATION: (test code = (NOTE) 08624) CPT: (test code = 8140) 28168 PAP TEST, THINPREP, [id number] 00:00:00 Test Item Value Reference Range Interpretation Comments SOURCE: (test code = Cervical/Vaginal 8001) SLIDES: (test code = 1 8011) LMP: (test code = 8021) SEE NOTE SPECIMEN ADEQUACY: (test (NOTE) code = 69988) INTERPRETATION: (test NILM/NO EPITH. code = 97320) ABNORMALITY;SEE BELOW BUILDING GUARD DEPUTY SHERIFF: (test ANANYA Lange(ASCP) code = 8101) LOCATION: (test code = (NOTE) 46026) CPT: (test code = 8140) 65323 PAP TEST, THINPREP, [id number] 00:00:00 Test Item Value Reference Range Interpretation Comments SOURCE: (test code = Cervical/Vaginal 8001) SLIDES: (test code = 1 8011) LMP: (test code = 8021) SEE NOTE SPECIMEN ADEQUACY: (test (NOTE) code = 61200) INTERPRETATION: (test NILM/NO EPITH. code = 81261) ABNORMALITY;SEE BELOW BUILDING GUARD DEPUTY SHERIFF: (test Davis SibleyCT(ASCP) code = 8101) LOCATION: (test code = (NOTE) 95885) CPT: (test code = 8140) 14890 PAP TEST, THINPREP, [id number] 00:00:00 Test Item Value Reference Range Interpretation Comments SOURCE: (test code = Cervical/Vaginal 8001) SLIDES: (test code = 1 8011) LMP: (test code = 8021) SEE NOTE SPECIMEN ADEQUACY: (test (NOTE) code = 73254) INTERPRETATION: (test NILM/NO EPITH. code = 07213) ABNORMALITY;SEE BELOW BUILDING GUARD DEPUTY SHERIFF: (test ANANYA Lange(ASCP) code = 8101) LOCATION: (test code = (NOTE) 83803) CPT: (test code = 8140) 54764 PAP TEST, THINPREP, [id number] 00:00:00 Test Item Value Reference Range Interpretation Comments SOURCE: (test code = Cervical/Vaginal 8001) SLIDES: (test code = 1 8011) LMP: (test code = 8021) SEE NOTE SPECIMEN ADEQUACY: (test (NOTE) code = 11195) INTERPRETATION: (test NILM/NO EPITH. code = 12018) ABNORMALITY;SEE BELOW BUILDING GUARD DEPUTY SHERIFF: (test Davis SibleyCT(ASCP) code = 8101) LOCATION: (test code = (NOTE) 07812) CPT: (test code = 8140) 14354 COMPREHENSIVE METABOLIC [id number] 00:00:00 Test Item Value Reference Range Interpretation Comments GLUCOSE (test code = 2217) 89 MG/DL BUN (test code = 2208) 13 MG/DL CREATININE (test code = 2214) 0.66 MG/DL eGFR AMER. (test code 118 ML/MIN/1.73 = 96659) eGFR NON- AMER. (test 102 ML/MIN/1.73 code = 10133) CALC BUN/CREAT (test code = 20 RATIO 2235) SODIUM (test code = 2231) 140 MEQ/L POTASSIUM (test code = 2228) 4.6 MEQ/L CHLORIDE (test code = 2215) 103 MEQ/L CARBON DIOXIDE (test code = 29 MEQ/L 2205) CALCIUM (test code = 2209) 9.9 MG/DL PROTEIN, TOTAL (test code = 7.4 G/DL 2228) ALBUMIN (test code = 2201) 4.6 G/DL CALC GLOBULIN (test code = 2.8 G/DL 2239) CALC A/G RATIO (test code = 1.6 RATIO 2233) BILIRUBIN, TOTAL (test code = <0.2 MG/DL 2206) ALKALINE PHOSPHATASE (test 70 U/L code = 2203) AST (test code = 2218) 17 U/L ALT (test code = 2219) 18 U/L LIPID [id number] 00:00:00 Test Item Value Reference Range Interpretation Comments CHOLESTEROL (test code = 2210) 214 MG/DL TRIGLYCERIDES (test code = 2232) 171 MG/DL HDL CHOLESTEROL (test code = 2220) 69 MG/DL CALC LDL CHOL (test code = 2237) 116 MG/DL RISK RATIO LDL/HDL (test code = 1.68 RATIO 8) HEMOGLOBIN [id number] 00:00:00 Test Item Value Reference Range Interpretation Comments HEMOGLOBIN A1c (test code = 07701) 5.8 % HEMOGLOBIN [id number] 00:00:00 Test Item Value Reference Range Interpretation Comments HEMOGLOBIN A1c (test code = 55860) 5.8 % COMPREHENSIVE METABOLIC [id number] 00:00:00 Test Item Value Reference Range Interpretation Comments GLUCOSE (test code = 2217) 89 MG/DL BUN (test code = 2208) 13 MG/DL CREATININE (test code = 2214) 0.66 MG/DL eGFR AMER. (test code 118 ML/MIN/1.73 = 38065) eGFR NON- AMER. (test 102 ML/MIN/1.73 code = 08740) CALC BUN/CREAT (test code = 20 RATIO 2235) SODIUM (test code = 2231) 140 MEQ/L POTASSIUM (test code = 2228) 4.6 MEQ/L CHLORIDE (test code = 2215) 103 MEQ/L CARBON DIOXIDE (test code = 29 MEQ/L 2205) CALCIUM (test code = 220) 9.9 MG/DL PROTEIN, TOTAL (test code = 7.4 G/DL 2228) ALBUMIN (test code = 2201) 4.6 G/DL CALC GLOBULIN (test code = 2.8 G/DL 2239) CALC A/G RATIO (test code = 1.6 RATIO 2234) BILIRUBIN, TOTAL (test code = <0.2 MG/DL 2206) ALKALINE PHOSPHATASE (test 70 U/L code = 2204) AST (test code = 2218) 17 U/L ALT (test code = 2219) 18 U/L LIPID [id number] 00:00:00 Test Item Value Reference Range Interpretation Comments CHOLESTEROL (test code = 2210) 214 MG/DL TRIGLYCERIDES (test code = 2232) 171 MG/DL HDL CHOLESTEROL (test code = 2220) 69 MG/DL CALC LDL CHOL (test code = 223) 116 MG/DL RISK RATIO LDL/HDL (test code = 1.68 RATIO 8) HEMOGLOBIN [id number] 00:00:00 Test Item Value Reference Range Interpretation Comments HEMOGLOBIN A1c (test code = 01317) 5.8 % HEMOGLOBIN [id number] 00:00:00 Test Item Value Reference Range Interpretation Comments HEMOGLOBIN A1c (test code = 06856) 5.8 % COMPREHENSIVE METABOLIC [id number] 00:00:00 Test Item Value Reference Range Interpretation Comments GLUCOSE (test code = 7) 89 MG/DL BUN (test code = 2207) 13 MG/DL CREATININE (test code = 2214) 0.66 MG/DL eGFR AMER. (test code 118 ML/MIN/1.73 = 12870) eGFR NON- AMER. (test 102 ML/MIN/1.73 code = 46915) CALC BUN/CREAT (test code = 20 RATIO 2235) SODIUM (test code = 2231) 140 MEQ/L POTASSIUM (test code = 2228) 4.6 MEQ/L CHLORIDE (test code = 2215) 103 MEQ/L CARBON DIOXIDE (test code = 29 MEQ/L 2205) CALCIUM (test code = 2209) 9.9 MG/DL PROTEIN, TOTAL (test code = 7.4 G/DL 2229) ALBUMIN (test code = 2201) 4.6 G/DL CALC GLOBULIN (test code = 2.8 G/DL 2240) CALC A/G RATIO (test code = 1.6 RATIO 2234) BILIRUBIN, TOTAL (test code = <0.2 MG/DL 2206) ALKALINE PHOSPHATASE (test 70 U/L code = 2204) AST (test code = 2218) 17 U/L ALT (test code = 2219) 18 U/L COMPREHENSIVE METABOLIC [id number] 00:00:00 Test Item Value Reference Range Interpretation Comments GLUCOSE (test code = 2217) 89 MG/DL BUN (test code = 2208) 13 MG/DL CREATININE (test code = 2214) 0.66 MG/DL eGFR AMER. (test code 118 ML/MIN/1.73 = 40293) eGFR NON- AMER. (test 102 ML/MIN/1.73 code = 09692) CALC BUN/CREAT (test code = 20 RATIO 2235) SODIUM (test code = 2231) 140 MEQ/L POTASSIUM (test code = 2228) 4.6 MEQ/L CHLORIDE (test code = 2215) 103 MEQ/L CARBON DIOXIDE (test code = 29 MEQ/L 2206) CALCIUM (test code = 2209) 9.9 MG/DL PROTEIN, TOTAL (test code = 7.4 G/DL 2228) ALBUMIN (test code = 2201) 4.6 G/DL CALC GLOBULIN (test code = 2.8 G/DL 2240) CALC A/G RATIO (test code = 1.6 RATIO 2234) BILIRUBIN, TOTAL (test code = <0.2 MG/DL 2206) ALKALINE PHOSPHATASE (test 70 U/L code = 2204) AST (test code = 2218) 17 U/L ALT (test code = 2219) 18 U/L LIPID [id number] 00:00:00 Test Item Value Reference Range Interpretation Comments CHOLESTEROL (test code = 2210) 214 MG/DL TRIGLYCERIDES (test code = 2232) 171 MG/DL HDL CHOLESTEROL (test code = 2220) 69 MG/DL CALC LDL CHOL (test code = 2237) 116 MG/DL RISK RATIO LDL/HDL (test code = 1.68 RATIO 2238) LIPID [id number] 00:00:00 Test Item Value Reference Range Interpretation Comments CHOLESTEROL (test code = 2210) 214 MG/DL TRIGLYCERIDES (test code = 2232) 171 MG/DL HDL CHOLESTEROL (test code = 2220) 69 MG/DL CALC LDL CHOL (test code = 2237) 116 MG/DL RISK RATIO LDL/HDL (test code = 1.68 RATIO 2238) HEMOGLOBIN [id number] 00:00:00 Test Item Value Reference Range Interpretation Comments HEMOGLOBIN A1c (test code = 75704) 5.8 % HEMOGLOBIN [id number] 00:00:00 Test Item Value Reference Range Interpretation Comments HEMOGLOBIN A1c (test code = 17583) 5.8 % HEMOGLOBIN [id number] 00:00:00 Test Item Value Reference Range Interpretation Comments HEMOGLOBIN A1c (test code = 80887) 5.8 % COMPREHENSIVE METABOLIC [id number] 00:00:00 Test Item Value Reference Range Interpretation Comments GLUCOSE (test code = 2217) 89 MG/DL BUN (test code = 2208) 13 MG/DL CREATININE (test code = 2214) 0.66 MG/DL eGFR AMER. (test code 118 ML/MIN/1.73 = 93977) eGFR NON- AMER. (test 102 ML/MIN/1.73 code = 85097) CALC BUN/CREAT (test code = 20 RATIO 2235) SODIUM (test code = 2231) 140 MEQ/L POTASSIUM (test code = 2228) 4.6 MEQ/L CHLORIDE (test code = 2215) 103 MEQ/L CARBON DIOXIDE (test code = 29 MEQ/L 2205) CALCIUM (test code = 2209) 9.9 MG/DL PROTEIN, TOTAL (test code = 7.4 G/DL 2228) ALBUMIN (test code = 2201) 4.6 G/DL CALC GLOBULIN (test code = 2.8 G/DL 2240) CALC A/G RATIO (test code = 1.6 RATIO 2234) BILIRUBIN, TOTAL (test code = <0.2 MG/DL 2206) ALKALINE PHOSPHATASE (test 70 U/L code = 2204) AST (test code = 2218) 17 U/L ALT (test code = 2219) 18 U/L COMPREHENSIVE METABOLIC [id number] 00:00:00 Test Item Value Reference Range Interpretation Comments GLUCOSE (test code = 2217) 89 MG/DL BUN (test code = 2208) 13 MG/DL CREATININE (test code = 2214) 0.66 MG/DL eGFR AMER. (test code 118 ML/MIN/1.73 = 23382) eGFR NON- AMER. (test 102 ML/MIN/1.73 code = 87955) CALC BUN/CREAT (test code = 20 RATIO 2235) SODIUM (test code = 2231) 140 MEQ/L POTASSIUM (test code = 2228) 4.6 MEQ/L CHLORIDE (test code = 2215) 103 MEQ/L CARBON DIOXIDE (test code = 29 MEQ/L 2205) CALCIUM (test code = 2209) 9.9 MG/DL PROTEIN, TOTAL (test code = 7.4 G/DL 2228) ALBUMIN (test code = 220) 4.6 G/DL CALC GLOBULIN (test code = 2.8 G/DL 2239) CALC A/G RATIO (test code = 1.6 RATIO 2234) BILIRUBIN, TOTAL (test code = <0.2 MG/DL 2206) ALKALINE PHOSPHATASE (test 70 U/L code = 2204) AST (test code = 2218) 17 U/L ALT (test code = 2219) 18 U/L LIPID [id number] 00:00:00 Test Item Value Reference Range Interpretation Comments CHOLESTEROL (test code = 2210) 214 MG/DL TRIGLYCERIDES (test code = 2232) 171 MG/DL HDL CHOLESTEROL (test code = 2220) 69 MG/DL CALC LDL CHOL (test code = 2237) 116 MG/DL RISK RATIO LDL/HDL (test code = 1.68 RATIO 2238) LIPID [id number] 00:00:00 Test Item Value Reference Range Interpretation Comments CHOLESTEROL (test code = 2210) 214 MG/DL TRIGLYCERIDES (test code = 2232) 171 MG/DL HDL CHOLESTEROL (test code = 2220) 69 MG/DL CALC LDL CHOL (test code = 2237) 116 MG/DL RISK RATIO LDL/HDL (test code = 1.68 RATIO 2238) HEMOGLOBIN [id number] 00:00:00 Test Item Value Reference Range Interpretation Comments HEMOGLOBIN A1c (test code = 12969) 5.8 % HEMOGLOBIN [id number] 00:00:00 Test Item Value Reference Range Interpretation Comments HEMOGLOBIN A1c (test code = 75437) 5.8 % HEMOGLOBIN [id number] 00:00:00 Test Item Value Reference Range Interpretation Comments HEMOGLOBIN A1c (test code = 13179) 5.8 % HPV HIGH RISK WITH GENOTYPE, [id number] 00:00:00 Test Item Value Reference Range Interpretation Comments HPV HIGH RISK INTERP (test code = NEGATIVE 81690) HPV 16 (test code = 02989) NEGATIVE HPV 18 (test code = 89538) NEGATIVE HPV, HR, OTHER GENOTYPES (test code NEGATIVE = 40549) HPV HIGH RISK WITH GENOTYPE, [id number] 00:00:00 Test Item Value Reference Range Interpretation Comments HPV HIGH RISK INTERP (test code = NEGATIVE 68854) HPV 16 (test code = 67793) NEGATIVE HPV 18 (test code = 86200) NEGATIVE HPV, HR, OTHER GENOTYPES (test code NEGATIVE = 87000) HPV HIGH RISK WITH GENOTYPE, [id number] 00:00:00 Test Item Value Reference Range Interpretation Comments HPV HIGH RISK INTERP (test code = NEGATIVE 59651) HPV 16 (test code = 27450) NEGATIVE HPV 18 (test code = 90942) NEGATIVE HPV, HR, OTHER GENOTYPES (test code NEGATIVE = 23236) HPV HIGH RISK WITH GENOTYPE, [id number] 00:00:00 Test Item Value Reference Range Interpretation Comments HPV HIGH RISK INTERP (test code = NEGATIVE 61152) HPV 16 (test code = 80454) NEGATIVE HPV 18 (test code = 05732) NEGATIVE HPV, HR, OTHER GENOTYPES (test code NEGATIVE = 25527) HPV HIGH RISK WITH GENOTYPE, [id number] 00:00:00 Test Item Value Reference Range Interpretation Comments HPV HIGH RISK INTERP (test code = NEGATIVE 64953) HPV 16 (test code = 93856) NEGATIVE HPV 18 (test code = 76469) NEGATIVE HPV, HR, OTHER GENOTYPES (test code NEGATIVE = 49125) HPV HIGH RISK WITH GENOTYPE, [id number] 00:00:00 Test Item Value Reference Range Interpretation Comments HPV HIGH RISK INTERP (test code = NEGATIVE 11181) HPV 16 (test code = 37077) NEGATIVE HPV 18 (test code = 55710) NEGATIVE HPV, HR, OTHER GENOTYPES (test code NEGATIVE = 81586) VAGINAL PATHOGENS DNA [id number] 00:00:00 Test Item Value Reference Range Interpretation Comments ZAC SPECIES (test code = 25278) NEGATIVE G. VAGINALIS (test code = 42367) POSITIVE T. VAGINALIS (test code = 29595) NEGATIVE VAGINAL PATHOGENS DNA [id number] 00:00:00 Test Item Value Reference Range Interpretation Comments ZAC SPECIES (test code = 75968) NEGATIVE G. VAGINALIS (test code = 77184) POSITIVE T. VAGINALIS (test code = 89732) NEGATIVE VAGINAL PATHOGENS DNA [id number] 00:00:00 Test Item Value Reference Range Interpretation Comments ZAC SPECIES (test code = 23838) NEGATIVE G. VAGINALIS (test code = 80266) POSITIVE T. VAGINALIS (test code = 85204) NEGATIVE VAGINAL PATHOGENS DNA [id number] 00:00:00 Test Item Value Reference Range Interpretation Comments ZAC SPECIES (test code = 86694) NEGATIVE G. VAGINALIS (test code = 69984) POSITIVE T. VAGINALIS (test code = 65108) NEGATIVE VAGINAL PATHOGENS DNA [id number] 00:00:00 Test Item Value Reference Range Interpretation Comments ZAC SPECIES (test code = 13085) NEGATIVE G. VAGINALIS (test code = 73936) POSITIVE T. VAGINALIS (test code = 79052) NEGATIVE VAGINAL PATHOGENS DNA [id number] 00:00:00 Test Item Value Reference Range Interpretation Comments ZAC SPECIES (test code = 01976) NEGATIVE G. VAGINALIS (test code = 21496) POSITIVE T. VAGINALIS (test code = 13548) NEGATIVE Notes Date/Time Note Provider Source 2023-05-26 Formatting of this note is different fro m the original. Skyla [facility] 07:37:38-00:00 Images from the original note were not included. Refilled per cardiology protocol Name from pharmacy: SPIRONOLACTONE 25 MG TABLET Will file in chart as: SPIRONOLACTONE 25 mg tab let Sig: TAKE HALF TABLET BY MOUTH EVERY MORNING Disp: 15 tablet ? Refills: Not specified Start: 05/26/2023 Class: eRX Last ordered: 2 months ago (02/28/2023) by Myesha chatman Doctor Unassigned Last refill: 04/25/2023 Rx #: [id number] Cardiovascular: ?Diuretics - Potassium Sparing Passed 05/26/2023 05:10 AM Protocol Details Valid encounter within last 12 months K in normal range and within 180 days Cr in normal range and within 180 days Electronically signed by Skyla Shah MA a t 05/26/2023 7:37 AM CDT"
[2023-05-29 19:43] LABS: SARS-CoV-2 Antigen Rapid Res Negative (Negative)
--- NOTE | 2023-05-29 20:05 | ER ---
Nurse's Notes [facility] Name: Linda Shrestha Age: 57 yrs Sex: Female : 1965 Arrival Date: 05/29/2023 Time: 18:45 Bed IW1 Private MD: Diagnosis: Streptococcal pharyngitis Presentation: 05/29 18:51 Chief complaint: Patient states: "I have a fever, sore throat, and cough that started mb9 last night.". Chief complaint:. Coronavirus screen: Vaccine status: Patient reports receiving the 2nd dose of the covid vaccine. Ebola Screen: No symptoms or risks identified at this time. Initial Sepsis Screen: Does the patient meet any 2 criteria? No. Patient's initial sepsis screen is negative. Does the patient have a suspected source of infection? No. Patient's initial sepsis screen is negative. Risk Assessment: Do you want to hurt yourself or someone else? Patient reports no desire to harm self or others. Onset of symptoms was May 29, 2023. 18:51 Acuity: CRYSTAL 4 mb9 18:51 Method Of Arrival: Ambulatory mb9 Triage Assessment: 18:55 General: Appears in no apparent distress. Behavior is anxious. Pain: Denies pain. mb9 Neuro: Wynne Agitation-Sedation Scale (RASS): 0 - Alert and Calm Level of Consciousness is awake, alert, obeys commands, Oriented to person, place, time, situation, Appropriate for age. Cardiovascular: Patient's skin is warm and dry. Respiratory: Reports cough that is Airway is patent Respiratory effort is even, unlabored, Respiratory pattern is regular, symmetrical. GI: Patient currently denies diarrhea, nausea. Derm: Skin is pink, warm \\T\\ dry. Musculoskeletal: Range of motion: intact in all extremities. Historical: - Allergies: 18:53 Amoxicillin; mb9 - Home Meds: 18:53 spironolactone Oral [Active]; Lisinopril Oral [Active]; mb9 - PMHx: 18:53 Hypertensive disorder; Anxiety; mb9 - PSHx: 18:53 None; mb9 - Immunization history:: Adult Immunizations up to date. - Social history:: Smoking status: Patient denies any tobacco usage or history of. Assessment: 20:30 Reassessment: pt was seen by ERNP in triage and d/c from [facility]. iw Vital Signs: 18:51 BP 162 / 77; Pulse 86; Resp 18; Temp 100.7(O); Pulse Ox 99% on R/A; Weight 72.57 kg; mb9 Height 4 ft. 11 in. ; Pain 10/10; 18:51 Body Mass Index 32.32 (72.57 kg, 149.86 cm) mb9 18:51 Pain Scale: Adult mb9 ED Course: 18:46 Patient arrived in ED. im 18:49 Cait Velazquez FNP-C is PHCP. kb 18:49 Travis Gimenez MD is Attending Physician. kb 18:53 Triage completed. mb9 18:53 Arm band placed on. mb9 19:50 Chest Single View XRAY In Process Unspecified. EDMS 20:29 Peg Garnica, RN is Primary Nurse. iw Administered Medications: 20:34 Drug: AZITHromycin PO 500 mg Route: PO; iw 21:00 Follow up: Response: No adverse reaction iw 20:34 Drug: Ibuprofen PO 600 mg Route: PO; iw 21:00 Follow up: Response: No adverse reaction iw Outcome: 20:04 Discharge ordered by MD. kb 20:33 Discharged to home via wheelchair. iw 20:33 Condition: good 20:33 Discharge instructions given to patient, Instructed on discharge instructions, follow up and referral plans. Demonstrated understanding of instructions, follow-up care, medications, Prescriptions given X 1. 20:34 Patient left the ED. iw Signatures: Dispatcher [employer] EDOR Cait Velazquez FNP-C FNP-Ckb Williams, Irene RN MARY KATE Mary Clark RN RN [email or web address] Lelo Garner im Corrections: (The following items were deleted from the chart) 05/30 17:29 08 20:30 Reassessment: pt was seen by PAUL in triage and d/d from [facility] iw
--- NOTE | 2023-05-29 20:05 | EDPHYS ---
Physician Documentation [facility] Name: Linda Shrestha Age: 57 yrs Sex: Female : 1965 Arrival Date: 05/29/2023 Time: 18:45 Bed IW1 Private MD: ED Physician Travis Gimenez HPI: 05/29 20:03 This 57 yrs old Female presents to ER via Ambulatory with complaints of Flu kb Symptoms. 20:03 The patient presents with sore throat. The patient describes throat pain as constant. kb Onset: The symptoms/episode began/occurred this morning. Severity of symptoms: At their worst the symptoms were moderate, in the emergency department the symptoms are unchanged. Modifying factors: The symptoms are alleviated by nothing, the symptoms are aggravated by swallowing, Patient's oral intake status: good. Associated signs and symptoms: Pertinent positives: chills, cough, fever, Sore throat. The patient has not experienced similar symptoms in the past. The patient has not recently seen a physician. Historical: - Allergies: 18:53 Amoxicillin; mb9 - Home Meds: 18:53 spironolactone Oral [Active]; Lisinopril Oral [Active]; mb9 - PMHx: 18:53 Hypertensive disorder; Anxiety; mb9 - PSHx: 18:53 None; mb9 - Immunization history:: Adult Immunizations up to date. - Social history:: Smoking status: Patient denies any tobacco usage or history of. ROS: 20:01 Constitutional: Positive for body aches, chills, fatigue, fever, malaise. kb 20:01 ENT: Positive for sore throat. 20:01 Respiratory: Positive for cough. 20:01 All other systems are negative. 20:05 Abdomen/GI: Negative for abdominal pain, nausea, vomiting, diarrhea, and constipation. kb Exam: 20:02 Constitutional: This is a well developed, well nourished patient who is awake, alert, kb and in no acute distress. Head/Face: Normocephalic, atraumatic. Cardiovascular: Regular rate and rhythm with a normal S1 and S2. No gallops, murmurs, or rubs. No pulse deficits. Respiratory: Respirations even and unlabored. No increased work of breathing. Talking in full sentences Abdomen/GI: Soft, non-tender. No distention Skin: Warm, dry with normal turgor. Normal color. MS/ Extremity: Pulses equal, no cyanosis. Neurovascular intact. Full, normal range of motion. Neuro: Awake and alert, GCS 15, oriented to person, place, time, and situation. Moves all extremities. Normal gait. 20:02 ENT: Posterior pharynx: Airway: normal, no evidence of obstruction, Tonsils: bilaterally enlarged, with erythema, with exudate, Uvula: normal, midline, swelling, that is moderate, erythema, that is moderate, exudate, that is mild. Vital Signs: 18:51 BP 162 / 77; Pulse 86; Resp 18; Temp 100.7(O); Pulse Ox 99% on R/A; Weight 72.57 kg; mb9 Height 4 ft. 11 in. ; Pain 10/10; 18:51 Body Mass Index 32.32 (72.57 kg, 149.86 cm) mb9 18:51 Pain Scale: Adult mb9 MDM: 18:49 Patient medically screened. kb 20:01 Differential diagnosis: Flu, COVID, strep, URI. Data reviewed: vital signs, nurses kb notes. Counseling: I had a detailed discussion with the patient and/or guardian regarding: the historical points, exam findings, and any diagnostic results supporting the discharge/admit diagnosis, lab results, radiology results, the need for outpatient follow up, a family practitioner, to return to the emergency department if symptoms worsen or persist or if there are any questions or concerns that arise at home. 05/29 18:52 Order name: Flu; Complete Time: 20:00 kb 05/29 18:52 Order name: Strep; Complete Time: 20:00 kb 05/29 19:32 Order name: SARS-COV-2 Antigen Rapid; Complete Time: 19:47 EDMS 05/29 18:52 Order name: Chest Single View XRAY; Complete Time: 20:08 kb Administered Medications: 20:34 Drug: AZITHromycin PO 500 mg Route: PO; iw 21:00 Follow up: Response: No adverse reaction iw 20:34 Drug: Ibuprofen PO 600 mg Route: PO; iw 21:00 Follow up: Response: No adverse reaction iw Disposition Summary: 05/29/23 20:04 Discharge Ordered Location: Home kb Condition: Stable kb Diagnosis - Streptococcal pharyngitis kb Followup: kb - With: Emergency Department - When: As needed - Reason: Worsening of condition Followup: kb - With: Private Physician - When: 2 - 3 days - Reason: Recheck today's complaints, Continuance of care, Re-evaluation by your physician Discharge Instructions: - Discharge Summary Sheet kb - Strep Throat, Adult, [id number] kb Forms: - Medication Reconciliation Form kb - Thank You Letter kb - Antibiotic Education kb - Prescription Opioid Use kb - Patient Portal Instructions kb Prescriptions: - Zithromax 500 mg Oral Tablet - take 1 tablet by ORAL route once daily for 5 days; 5 tablet; Refills: 0, kb Product Selection Permitted Signatures: Dispatcher [employer] Cait Blankenship, GONZALOC JULIAN-Peg Celestin RN RN Mary Clark RN RN mb9 Corrections: (The following items were deleted from the chart) 19:30 18:53 SARS-COV-2 RT PCR+[id number] ordered. EDIN EDIN
--- NOTE | 2023-05-29 20:06 | RAD REPORT ---
EXAM DESCRIPTION: Chad Single View05/29/2023 7:48 pm CLINICAL HISTORY: Cough COMPARISON: 2020 FINDINGS: The lungs appear clear of acute infiltrate. The heart is normal size IMPRESSION: No acute abnormalities displayed
[2023-05-29] MEDS ORDERED: AZITHROMYCIN 250 MG TAB ONE (20:40)
[2023-05-29] MEDS ORDERED: IBUPROFEN 200 MG TAB PO ONE (20:40)
[2023-05-29 20:57] VITALS: BP 162/77; TEMP 100.7; O2SAT 99
== END 2023-05-29 20:34 | disposition home or self-care (01) ==
LOC: ER 18:45
DX: J02.0 Streptococcal pharyngitis (principal); Z20.822 Contact with and (suspected) exposure to COVID-19; I10 Essential (primary) hypertension; Z88.1 Allergy status to other antibiotic agents
CPT/HCPCS: 36415; 71045; 87081; 87804; 87811; 99283